=== PATIENT | female | born 1945 | race Caucasian/White ===

== ENCOUNTER → 2016-12-03 | Outpatient (CLI) | payer OTHER ==
[~2016-12-03] MED LIST: ASPCH81X PO; LEVO75TA36 PO; METH-307 PO; OXYC1TAB3 PO
[2016-12-03 10:26] LABS: ESTIMATED AVERAGE GLUCOSE 94 mg/dl; HA1C FLAG Normal (Normal)
[2016-12-03 10:33] LABS: CHOLESTEROL/HDL RATIO 3.6; THYROID STIMULATING HORMONE 0.449 uIu/ml (0.300-4.500)
== END | disposition home or self-care (01) ==
LOC: C.LAB1850 09:13
PROVIDERS: ATTEND Family Medicine
DX: E03.9 Hypothyroidism, unspecified (principal); E78.00 Pure hypercholesterolemia, unspecified; R73.9 Hyperglycemia, unspecified

== ENCOUNTER → 2017-09-26 | Day surgery (SDC) | payer OTHER ==
[2017-09-13 07:34] VITALS: Ht 154.9 cm; Wt 56.8 kg
[~2017-09-26] VITALS: Ht 154.9 cm; Wt 56.8 kg
[~2017-09-26] MED LIST changes: +500ML BSS 0.3ML EPI 1:1000PF IRRIG ONE; +ACETAMINOPHEN 325 MG TAB PO PRN; +AMVISC PLUS 0.8ML SYRINGE INT OCU ONE; +ATROPINE SULFATE 0.1 MG/ML 5ML SYR IV PRN; +BRIMONIDINE TART 0.2% OP SOLN PER DROP CHARGE ONE; +BRIMONIDINE TARTRATE 0.2% 5ML ONE; +BSS FLUSH ONE; +CALC600T9 PO; +ENDOCOAT 0.85ML SYRINGE INT OCU ONE; +EpHEDrine SULFATE INJ 50 MG/ML AMP IV PRN; +EpINEphrine INJ 1MG/ML AMP 1 MG/ML AMP ONE; +LACTATED RINGER'S 1000ML 500 ML IV SCH; -LEVO75TA36 PO; +LEVO75TA5 PO; +LIDOCAINE 4% OP SOLN DROP CHARGE ONE; +LIDOCAINE 4% OP SOLN DROP CHARGE OPR SCH; +LIDOCAINE HCL 1% MPF 2 ML VIAL ONE; -METH-307 PO; +MIDAZOLAM HCL 1 MG/ML 2ML VIAL ONE; +MIX: 3ML BSS AND 1ML EPI(PF) TOP ONE; +MOXIFLOXACIN OPH SOLN PER DROP CHARGE ONE; +ONDANSETRON INJ 2 MG/ML 2 ML VIAL IV PRN; -OXYC1TAB3 PO; +POVIDONE-IODINE OP SOLN 30 ML BTL ONE; +PROPARACAINE 0.5% OP SOLN PER DROP CHARGE OPR SCH; +TOBRAMYCIN/DEXAMETHASONE OPH OINT PER APPLN CHARGE ONE
[2017-09-26] MEDS: PHENYLEPHRINE HCL 2.5% OP SOLN PER DROP CHARGE OPR SCH ×2 (07:37→07:42)
[2017-09-26] MEDS: TROPICAMIDE 1% OP SOLN PER DROP CHARGE OPR SCH ×2 (07:38→07:42)
[2017-09-26] MEDS: CYCLOPENTOLATE HCL 1% OP SOLN PER DROP CHARGE OPR SCH ×2 (07:39→07:43)
[2017-09-26] MEDS: KETOROLAC 0.5% OP SOLN PER DROP CHARGE OPR SCH ×2 (07:40→07:44)
[2017-09-26] MEDS: MOXIFLOXACIN OPH SOLN PER DROP CHARGE OPR SCH ×2 (07:41→07:48)
--- NOTE | 2017-09-26 08:17 | History & Physical Bridge - [place] ---
H&P Re-Evaluation Bridge Note: I have examined the patient, reviewed the History & Physical and in the interval since the performance of the History & Physical I have noted the following changes of clinical significance: No changes noted
--- NOTE | 2017-09-26 09:11 | Discharge Instructions-SurgCtr ---
Discharge Instructions Date of Service Sep 26, 2017. Visit Reason for Visit: Cataract Right Eye Discharge Discharge Diagnosis / Problem: cataract right eye Discharge Goals Goal(s): Improve function Activity Recommendations Activity Limitations: per Instructions/Follow-up section Anesthesia . Post Anesthesia Instructions: If you have had General Anesthesia or IV Sedation: * Do not drive today. * Resume driving when surgeon permits. * Do not make important decisions or sign legal documents today. * Call surgeon for: 1. Temperature elevations greater than 101 degrees F. 2. Uncontrollable pain. 3. Excessive bleeding. 4. Persistent nausea and vomiting. 5. Medication intolerance (nausea, vomiting or rash). * For nausea and vomiting use only clear liquids such as: tea, soda, bouillon until nausea subsides, then gradually increase diet as tolerated. * If you have any concerns or questions, call your surgeon's office. If physician is unavailable and it is an emergency, call 911 or go to the nearest emergency room. . Instructions / Follow-Up Instructions / Follow-Up ACTIVITY RECOMMENDATIONS: * Light activities * You may walk outside, read, watch television. * Mild irritation and blurred vision are common for the first few days, redness around the white part of the eye is common. MEDICATIONS: Resume previous medications unless instructed otherwise by your surgeon. Eye drops (today and tomorrow): Cipro - one drop in operative eye every 2 hours while awake Prednisolone 1% - one drop in operative eye every 2 hours while awake Ketorolac - one drop in operative eye every 2 hours while awake latanoprost - one drop operative eye 1 times daily SPECIAL CARE INSTRUCTIONS: * If any problems or concerns, please call Dr. Mcdermott's office at . * Keep plastic shield taped over eye to sleep at night. * Keep plastic shield taped over eye except to administer eye drops. * Keep plastic shield on until office visit the following day. FOLLOW UP VISIT: Follow-up with Dr. Mcdermott in the [place] office as scheduled. If not already scheduled, please call the office at . Diet Recommendations Home Diet: resume previous diet Procedures Procedures Performed: Right Cataract Phacoemulsification With Intraocular Lens Implant Pending Studies Studies pending at discharge: no Medical Emergencies . Who to Call and When: Medical Emergencies: If at any time you feel your situation is an emergency, please call 911 immediately. . Non-Emergent Contact Non-Emergency issues call your: Vending Machine Refiller . . "Provider Documentation" section prepared by Chele Mcdermott. .
[2017-09-26 09:14] VITALS: TEMP 36.4
--- NOTE | 2017-09-26 09:14 | [facility] Operative Report ---
Operative Report Operative Date Sep 26, 2017. Pre-Operative Diagnosis Right Eye Cataract Post-Operative Diagnosis Same Procedure(s) Performed Right Cataract Phacoemulsification With Intraocular Lens Implant Surgeon Dr. Deniz Mcdermott Greenhouse Laborer Surgeon(s) None Estimated Blood Loss 0 Findings cataract right eye Fluids (cc crystalloids) see anesthesia record Specimens None Drains none Anesthesia local with sedation Complication(s) None Disposition Recovery Room / PACU Implants mx60 20.5 Indications decreased vision right eye Description of Procedure After informed consent was obtained in the holding area the patient was wheeled back to the operating room where cardiac monitoring leads and oxygen by nasal cannula was administered by Anesthesia. Gentle IV sedation was given, and the patient's right eye was prepped and draped in usual sterile fashion. A wire lid speculum was placed into the right eye and the operating microscope was swung into position. Using 0.12 forceps and a Supersharp blade a paracentesis port was made 2 o'clock hours away from the 9 o'clock position of the patient's right eye. 1% non-preserved Lidocaine was then injected into the anterior chamber for anesthesia. 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 A 2.0 mm keratotome blade was then used to make a shelved clear corneal incision at the 9 o'clock position of the right eye. Amvisc was injected into the anterior chamber and a cystotome and Utrata forceps were used to perform a curvilinear capsulorrhexis. BSS on a hydrodissection cannula was used to hydrodissect the lens nucleus away from the capsular bag. The phacoemulsification handpiece was then used in a stop and chop fashion to remove the lens nucleus. The irrigation and aspiration handpiece was then used to remove the residual cortical material. Amvisc was injected into the capsular bag and anterior chamber and a Bausch & Lomb MX60 20.5 Diopter intraocular lens was injected into the capsular bag. Irrigation and aspiration handpiece was used to remove the residual viscoelastic material. The wounds were hydrated and noted to be watertight. The wire lid speculum was removed from the eye. Vigamox, Brimonidine, and TobraDex ointment were placed on the eye and it was shielded. It should be noted that EndoCoat was used extensively during the case to protect the cornea endothelium. DISPOSITION: The patient tolerated the procedure well and was wheeled to the post anesthesia care unit in stable condition. I attest to the content of the Intraoperative Record and any orders documented therein. Any exceptions are noted below. I attest to the content of the Intraoperative Record and any orders documented therein. Any exceptions are noted below.
[2017-09-26 09:38] VITALS: BP 100/65; PULSE 63; O2SAT 98
--- NOTE | 2017-09-26 09:44 | Anesthesia Progress Nt - [facility] ---
Anesthesia Post Op Note Date & Time Sep 26, 2017 at 09:43 Vital Signs Pain Intensity: 0 Vital Signs Past 12 Hours Date Time Temp Pulse Resp B/P (MAP) Pulse Ox O2 Delivery O2 Flow Rate FiO2 09/26/17 09:38 63 16 100/65 (77) 98 Room Air 09/26/17 09:14 36.4 58 16 99/64 (76) 96 Room Air 09/26/17 08:09 85/57 (66) 09/26/17 07:25 36.6 78 18 92/65 (74) 96 Room Air Notes Mental Status: alert / awake / arousable, participated in evaluation Pt Amnestic to Procedure: Yes Nausea / Vomiting: adequately controlled Pain: adequately controlled Airway Patency, RR, SpO2: stable & adequate BP & HR: stable & adequate Hydration State: stable & adequate Anesthetic Complications: no major complications apparent
== END | disposition home or self-care (01) ==
LOC: X.SURG 06:57
PROVIDERS: ATTEND Ophthalmology
DX: H25.11 Age-related nuclear cataract, right eye (principal); E03.9 Hypothyroidism, unspecified; F17.210 Nicotine dependence, cigarettes, uncomplicated; Z79.82 Long term (current) use of aspirin; Z79.899 Other long term (current) drug therapy

== ENCOUNTER → 2017-10-12 | Day surgery (SDC) | payer OTHER ==
[2017-10-06 10:24] VITALS: Ht 154.9 cm; Wt 56.8 kg
[~2017-10-12] VITALS: Ht 154.9 cm; Wt 56.8 kg
[~2017-10-12] MED LIST changes: +ALEN70TA2 PO; -BRIMONIDINE TARTRATE 0.2% 5ML ONE; +ESCI10TA17 PO; +FENTANYL CITRATE INJ 50 MCG/1 ML 2 ML VIAL IV PRN; +FENTANYL CITRATE INJ 50 MCG/1 ML 2 ML VIAL ONE; +FLUMAZENIL 0.1 MG/1 ML 10 ML VIAL IV PRN; +HYDROmorphone INJ 2 MG/ML SYR/VIAL IV PRN; +LABETALOL HCL IV 5 MG/ML 20ML IV PRN; +LIDOCAINE 4% OP SOLN DROP CHARGE OPL SCH; -LIDOCAINE 4% OP SOLN DROP CHARGE OPR SCH; +MEPERIDINE HCL 25 MG/ML CARP IV PRN; +NALOXONE HCL 0.4 MG/1 ML VIAL/CARP IV PRN; +OMEP-334 PO; +PHENYLEPHRINE 100MCG/ML 5ML SYR IV PRN; +PROPARACAINE 0.5% OP SOLN PER DROP CHARGE OPL SCH; -PROPARACAINE 0.5% OP SOLN PER DROP CHARGE OPR SCH
[2017-10-12] MEDS: PHENYLEPHRINE HCL 2.5% OP SOLN PER DROP CHARGE OPL SCH ×2 (08:12→08:18)
[2017-10-12] MEDS: TROPICAMIDE 1% OP SOLN PER DROP CHARGE OPL SCH ×2 (08:13→08:19)
[2017-10-12] MEDS: CYCLOPENTOLATE HCL 1% OP SOLN PER DROP CHARGE OPL SCH ×2 (08:15→08:20)
[2017-10-12] MEDS: KETOROLAC 0.5% OP SOLN PER DROP CHARGE OPL SCH ×2 (08:16→08:22)
[2017-10-12] MEDS: MOXIFLOXACIN OPH SOLN PER DROP CHARGE OPL SCH ×2 (08:17→08:31)
[2017-10-12 09:45] VITALS: TEMP 36.4
--- NOTE | 2017-10-12 09:46 | Discharge Instructions-SurgCtr ---
Discharge Instructions Date of Service Oct 12, 2017. Visit Reason for Visit: Cataract Left Eye Discharge Discharge Diagnosis / Problem: cataract left eye Discharge Goals Goal(s): Improve function Activity Recommendations Activity Limitations: per Instructions/Follow-up section Lifting Limitations: no more than 5 pounds Anesthesia . Post Anesthesia Instructions: If you have had General Anesthesia or IV Sedation: * Do not drive today. * Resume driving when surgeon permits. * Do not make important decisions or sign legal documents today. * Call surgeon for: 1. Temperature elevations greater than 101 degrees F. 2. Uncontrollable pain. 3. Excessive bleeding. 4. Persistent nausea and vomiting. 5. Medication intolerance (nausea, vomiting or rash). * For nausea and vomiting use only clear liquids such as: tea, soda, bouillon until nausea subsides, then gradually increase diet as tolerated. * If you have any concerns or questions, call your surgeon's office. If physician is unavailable and it is an emergency, call 911 or go to the nearest emergency room. . Instructions / Follow-Up Instructions / Follow-Up ACTIVITY RECOMMENDATIONS: * Light activities * You may walk outside, read, watch television. * Mild irritation and blurred vision are common for the first few days, redness around the white part of the eye is common. MEDICATIONS: Resume previous medications unless instructed otherwise by your surgeon. Eye drops (today and tomorrow)Left Eye: Cipro - one drop in operative eye every 2 hours while awake Prednisolone 1% - one drop in operative eye every 2 hours while awake Ketorolac - one drop in operative eye every 2 hours while awake Right Eye: Prednisolone 1%- one drop twice a day Ketorolac- one drop four times a day SPECIAL CARE INSTRUCTIONS: * If any problems or concerns, please call Dr. Mcdermott's office at . * Keep plastic shield taped over eye to sleep at night. * Keep plastic shield taped over eye except to administer eye drops. * Keep plastic shield on until office visit the following day. FOLLOW UP VISIT: Follow-up with Dr. Mcdermott in the [place] office as scheduled. If not already scheduled, please call the office at . Diet Recommendations Home Diet: resume previous diet Procedures Procedures Performed: Left Cataract Phacoemulsification With Intraocular Lens Implant Pending Studies Studies pending at discharge: no Medical Emergencies . Who to Call and When: Medical Emergencies: If at any time you feel your situation is an emergency, please call 911 immediately. . Non-Emergent Contact Non-Emergency issues call your: Merchandise For Resale Purchasing Agent . . "Provider Documentation" section prepared by Chele Mcdermott. .
--- NOTE | 2017-10-12 09:48 | [facility] Operative Report ---
Operative Report Operative Date Oct 12, 2017. Pre-Operative Diagnosis Cataract Left Eye Post-Operative Diagnosis Same Procedure(s) Performed Left Cataract Phacoemulsification With Intraocular Lens Implant Surgeon Dr. Mcdermott Underground Drill Operator Surgeon(s) None Estimated Blood Loss 0 Findings cataract left eye Fluids (cc crystalloids) see anesthesia record Specimens None Drains none Anesthesia local with sedation Complication(s) None Disposition Recovery Room / PACU Implants mx60 21.0 Indications decreased vision left eye Description of Procedure After informed consent was obtained in the holding area the patient was wheeled back to the operating room where cardiac monitoring leads and oxygen by nasal cannula was administered by Anesthesia. Gentle IV sedation was given, and the patient's left eye was prepped and draped in usual sterile fashion. A wire lid speculum was placed into the left eye and the operating microscope was swung into position. Using 0.12 forceps and a Supersharp blade a paracentesis port was made 2 o'clock hours away from the 3 o'clock position of the patient's left eye. 1% non-preserved Lidocaine was then injected into the anterior chamber for anesthesia. Flomax mix was injected into the eye. A 2.0 mm keratotome blade was then used to make a shelved clear corneal incision at the 3 o'clock position of the left eye. Amvisc was injected into the anterior chamber and a cystotome and Utrata forceps were used to perform a curvilinear capsulorrhexis. BSS on a hydrodissection cannula was used to hydrodissect the lens nucleus away from the capsular bag. The phacoemulsification handpiece was then used in a stop and chop fashion to remove the lens nucleus. The irrigation and aspiration handpiece was then used to remove the residual cortical material. Amvisc was injected into the capsular bag and anterior chamber and a Bausch & Lomb MX60 21.0 Diopter intraocular lens was injected into the capsular bag. Irrigation and aspiration handpiece was used to remove the residual viscoelastic material. The wounds were hydrated and noted to be watertight. The wire lid speculum was removed from the eye. Vigamox, Brimonidine, and TobraDex ointment were placed on the eye and it was shielded. It should be noted that EndoCoat was used extensively during the case to protect the cornea endothelium. DISPOSITION: The patient tolerated the procedure well and was wheeled to the post anesthesia care unit in stable condition. I attest to the content of the Intraoperative Record and any orders documented therein. Any exceptions are noted below. I attest to the content of the Intraoperative Record and any orders documented therein. Any exceptions are noted below.
--- NOTE | 2017-10-12 09:58 | Anesthesia Progress Nt - [facility] ---
Anesthesia Post Op Note Date & Time Oct 12, 2017 at 09:58 Vital Signs Pain Intensity: 0 Vital Signs Past 12 Hours Date Time Temp Pulse Resp B/P (MAP) Pulse Ox O2 Delivery O2 Flow Rate FiO2 10/12/17 09:45 36.4 57 16 99/63 (75) 97 Room Air 10/12/17 08:04 36.6 61 16 96/64 (75) 97 Room Air Notes Mental Status: alert / awake / arousable, participated in evaluation Pt Amnestic to Procedure: Yes Nausea / Vomiting: adequately controlled Pain: adequately controlled Airway Patency, RR, SpO2: stable & adequate BP & HR: stable & adequate Hydration State: stable & adequate Anesthetic Complications: no major complications apparent
[2017-10-12 10:14] VITALS: BP 91/58; PULSE 51; O2SAT 97
== END | disposition home or self-care (01) ==
LOC: X.SURG 07:47
PROVIDERS: ATTEND Ophthalmology
DX: H26.9 Unspecified cataract (principal); F17.200 Nicotine dependence, unspecified, uncomplicated; Z98.890 Other specified postprocedural states; Z98.41 Cataract extraction status, right eye

== ENCOUNTER → 2017-12-26 | Outpatient (CLI) | payer OTHER ==
[~2017-12-26] MED LIST changes: -500ML BSS 0.3ML EPI 1:1000PF IRRIG ONE; -ACETAMINOPHEN 325 MG TAB PO PRN; -ALEN70TA2 PO; -AMVISC PLUS 0.8ML SYRINGE INT OCU ONE; -ATROPINE SULFATE 0.1 MG/ML 5ML SYR IV PRN; -BRIMONIDINE TART 0.2% OP SOLN PER DROP CHARGE ONE; -BSS FLUSH ONE; -ENDOCOAT 0.85ML SYRINGE INT OCU ONE; -ESCI10TA17 PO; -EpHEDrine SULFATE INJ 50 MG/ML AMP IV PRN; -EpINEphrine INJ 1MG/ML AMP 1 MG/ML AMP ONE; -FENTANYL CITRATE INJ 50 MCG/1 ML 2 ML VIAL IV PRN; -FENTANYL CITRATE INJ 50 MCG/1 ML 2 ML VIAL ONE; -FLUMAZENIL 0.1 MG/1 ML 10 ML VIAL IV PRN; -HYDROmorphone INJ 2 MG/ML SYR/VIAL IV PRN; -LABETALOL HCL IV 5 MG/ML 20ML IV PRN; -LACTATED RINGER'S 1000ML 500 ML IV SCH; -LIDOCAINE 4% OP SOLN DROP CHARGE ONE; -LIDOCAINE 4% OP SOLN DROP CHARGE OPL SCH; -LIDOCAINE HCL 1% MPF 2 ML VIAL ONE; -MEPERIDINE HCL 25 MG/ML CARP IV PRN; -MIDAZOLAM HCL 1 MG/ML 2ML VIAL ONE; -MIX: 3ML BSS AND 1ML EPI(PF) TOP ONE; -MOXIFLOXACIN OPH SOLN PER DROP CHARGE ONE; -NALOXONE HCL 0.4 MG/1 ML VIAL/CARP IV PRN; -OMEP-334 PO; -ONDANSETRON INJ 2 MG/ML 2 ML VIAL IV PRN; -PHENYLEPHRINE 100MCG/ML 5ML SYR IV PRN; -POVIDONE-IODINE OP SOLN 30 ML BTL ONE; -PROPARACAINE 0.5% OP SOLN PER DROP CHARGE OPL SCH; -TOBRAMYCIN/DEXAMETHASONE OPH OINT PER APPLN CHARGE ONE
== END | disposition home or self-care (01) ==
LOC: C.MAMM 11:20
PROVIDERS: ATTEND Family Medicine
DX: M81.0 Age-related osteoporosis without current pathological fracture (principal)

== ENCOUNTER 2018-06-08 12:29 | Emergency (ER) | payer OTHER ==
[~2018-06-08] VITALS: Ht 152.4 cm; Wt 45.3 kg
[2018-06-08 12:47] VITALS: TEMP 36.9; Ht 152.4 cm; Wt 45.3 kg
[2018-06-08 13:02] VITALS: O2SAT 97
[2018-06-08] MEDS ORDERED: SODIUM CHLORIDE 0.9% 1000ML 1,000 ML IV STA (13:20)
--- NOTE | 2018-06-08 13:33 | EMERGENCY ROOM VISIT NOTE ---
History First contact with patient: 13:00 Chief Complaint: OTHER COMPLAINT Stated Complaint: BLEEDING SOMEWHERE, DEHYDRATED, SENT FROM History of Present Illness The patient is a 73 year old female who presents to the Emergency Room sent in from her doctor's office due to positive orthostatics. Patient states since January she has had daily morning mid abdominal pain that she describes as a cramping. Patient states it seems to go away later on in the day. Patient states she has had a decreased appetite due to this. Patient denies any recent change in her stools, admits to mild constipation, denies black or bloody stools. Patient denies any change in her urine. Patient states when she stands up she will get dizzy, and will often feel dizzy with continued walking. Patient denies any trouble breathing or increased work of breathing with exertion. Patient denies headaches, vision changes. Patient denies nausea or vomiting. Patient states she has had one colonoscopy many years ago, has not had any since. Patient denies any history of GERD or gastritis, no prior EGD, does not take any OTC stomach meds. Patient denies any recent illness, fevers or chills. Patient denies any current complaints while lying in bed. Friend at bedside notes that patient's in January. Review of Systems See HPI for pertinent positives & negatives. A total of 10 systems reviewed and were otherwise negative. Past Medical/Surgical History Medical Problems: (1) Compression fracture of L1 lumbar vertebra Family History Cancer Diabetes mellitus Social History Smoking Status: Current Every Day Smoker Marital Status: Housing Status: lives with significant other Occupation Status: unemployed Current/Historical Medications Scheduled Alendronate Sodium (Fosamax), 70 MG PO WK Calcium Carbonate-Vitamin D (Calcium + D), 1 TAB PO HS Escitalopram (Lexapro), 10 MG PO DAILY Levothyroxine Sodium (Levothyroxine Sodium), 1 TAB PO QAM Omeprazole (Omeprazole Dr), 40 MG PO DAILY Physical Exam Vital Signs Date Time Temp Pulse Resp B/P (MAP) Pulse Ox O2 Delivery O2 Flow Rate FiO2 06/08/18 16:02 69 113/69 69 106/78 06/08/18 15:52 74 16 111/57 98 Room Air 06/08/18 15:51 72 18 103/55 79 109/60 80 86/55 06/08/18 14:24 58 20 118/68 99 Room Air 06/08/18 13:36 63 22 107/67 99 Room Air 06/08/18 13:17 57 06/08/18 13:02 97 Room Air 06/08/18 12:58 62 117/65 61 99/60 77 89/75 06/08/18 12:47 36.9 73 20 98/67 98 Room Air Physical Exam GENERAL: alert, well appearing, well nourished, no distress, non-toxic EYE EXAM: normal conjunctiva, PERRL and EOM's grossly intact OROPHARYNX: no exudate, no erythema, lips, buccal mucosa, and tongue normal and mucous membranes are moist NECK: supple, no nuchal rigidity, no adenopathy, non-tender LUNGS: Clear to auscultation. Normal chest wall mechanics, no w/r/r HEART: no murmurs, S1 normal and S2 normal ABDOMEN: abdomen soft, non-tender, normo-active bowel sounds, no masses, no rebound or guarding. No pulsatile mass, dull to percussion. BACK: Back is symmetrical on inspection and there is no deformity, no midline tenderness, no CVA tenderness. SKIN: no rashes and no bruising UPPER EXTREMITIES: upper extremities are grossly normal. Full range of motion, normal pulses. LOWER EXTREMITIES: No pitting edema. Full range of motion, normal pulses. NEURO EXAM: Normal sensorium, cranial nerves II-XII grossly intact, normal speech, no gross weakness of arms, no gross weakness of legs. Gross sensation intact. Medical Decision & Procedures Laboratory Results 06/08/18 13:10 Red Blood Count 4.38, Mean Corpuscular Volume 100.5, Mean Corpuscular Hemoglobin 33.6, Mean Corpuscular Hemoglobin Concent 33.4, Mean Platelet Volume 10.0, Neutrophils (%) (Auto) 73.7, Lymphocytes (%) (Auto) 17.7, Monocytes (%) ( Auto) 7.5, Eosinophils (%) (Auto) 0.6, Basophils (%) (Auto) 0.3, Neutrophils # ( Auto) 4.85, Lymphocytes # (Auto) 1.16, Monocytes # (Auto) 0.49, Eosinophils # ( Auto) 0.04, Basophils # (Auto) 0.02 06/08/18 13:10 Test 06/08/18 13:10 White Blood Count 6.57 K/uL (4.8-10.8) Red Blood Count 4.38 M/uL (4.2-5.4) Hemoglobin 14.7 g/dL (12.0-16.0) Hematocrit 44.0 % (37-47) Mean Corpuscular Volume 100.5 fL (80-100) Mean Corpuscular Hemoglobin 33.6 pg (25-34) Mean Corpuscular Hemoglobin Concent 33.4 g/dl (32-36) Platelet Count 226 K/uL (130-400) Mean Platelet Volume 10.0 fL (7.4-10.4) Neutrophils (%) (Auto) 73.7 % Lymphocytes (%) (Auto) 17.7 % Monocytes (%) (Auto) 7.5 % Eosinophils (%) (Auto) 0.6 % Basophils (%) (Auto) 0.3 % Neutrophils # (Auto) 4.85 K/uL (1.4-6.5) Lymphocytes # (Auto) 1.16 K/uL (1.2-3.4) Monocytes # (Auto) 0.49 K/uL (0.11-0.59) Eosinophils # (Auto) 0.04 K/uL (0-0.5) Basophils # (Auto) 0.02 K/uL (0-0.2) RDW Standard Deviation 51.4 fL (36.4-46.3) RDW Coefficient of Variation 13.9 % (11.5-14.5) Immature Granulocyte % (Auto) 0.2 % Immature Granulocyte # (Auto) 0.01 K/uL (0.00-0.02) Prothrombin Time 10.2 SECONDS (9.0-12.0) Prothromb Time International Ratio 1.0 (0.9-1.1) Anion Gap 7.0 mmol/L (3-11) Est Creatinine Clear Calc Drug Dose 38.5 ml/min Estimated GFR () 70.7 Estimated GFR (Non- 61.0 BUN/Creatinine Ratio 14.6 (10-20) Calcium Level 8.8 mg/dl (8.5-10.1) Magnesium Level 2.2 mg/dl (1.8-2.4) Total Bilirubin 0.5 mg/dl (0.2-1) Aspartate Amino Transf (AST/SGOT) 17 U/L (15-37) Alanine Aminotransferase (ALT/SGPT) 18 U/L (12-78) Alkaline Phosphatase 68 U/L (45-117) Troponin I < 0.015 ng/ml (0-0.045) Pro-B-Type Natriuretic Peptide 329 pg/ml (0-900) Total Protein 7.0 gm/dl (6.4-8.2) Albumin 4.0 gm/dl (3.4-5.0) Globulin 3.0 gm/dl (2.5-4.0) Albumin/Globulin Ratio 1.3 (0.9-2) Lipase 200 U/L (73-393) Thyroid Stimulating Hormone (TSH) 0.918 uIu/ml (0.300-4.500) Medications Administered Medications (Trade) Dose Ordered Sig/Conchis Route Start Time Stop Time Status Last Admin Dose Admin Sodium Chloride 1,000 ml @ 999 mls/hr Q1H1M STAT IV 06/08/18 13:20 06/08/18 14:20 DC 06/08/18 13:34 999 MLS/HR Al Hydroxide/Mg Hydroxide (Maalox Susp) 15 ml NOW STAT PO 06/08/18 15:22 06/08/18 15:23 DC 06/08/18 15:22 15 ML ECG Per My Interpretation Indication: abdominal pain Rate (beats per minute): 58 Rhythm: sinus bradycardia Findings: T-wave inversion (V2 and V3, no other acute ischemic changes) ED Course 1532: Discussed with patient all results. Discussed with her possible component of gastritis. Also discussed possible grief reaction given the loss of her in January. Discussed her diet and hydration throughout a normal day for her. Patient states some discussion of her symptoms with her family doctor today, her family doctor called in prescriptions for an acid reducing medication which I encouraged her to continue taking. Discussed follow-up with her family doctor. Will repeat orthostatic vital signs as a precaution. 1600: Nurse noted positive orthostatics but asymptomatic from sitting to standing on her bedside evaluation, however when I performed the same test at bedside patient was asymptomatic and had no significant drop in blood pressure or elevation of heart rate. Discussed with patient need for close follow-up with family doctor and a repeat of her orthostatic vital signs as a precaution. I encouraged her to continue drinking plenty of water throughout the day. Medical Decision Differential diagnosis: Etiologies such as appendicitis, diverticulitis, PUD, biliary pathology, UTI, pancreatitis, obstruction, mesenteric ischemia, aortic pathology, infections, inflammatory bowel disease, renal colic, as well as others were entertained. HEART score 3 Patient's labs and imaging here reassuring, patient was given IV fluids as a precaution and my repeat bedside orthostatic vital signs were negative. Patient was asymptomatic throughout. Discussed with patient concerning given symptoms and possible need for additional GI evaluation, she was in agreement. Discussed her daily diet and activity and advised avoidance of any acidic foods and consideration for an acid reducing medication. Her family doctor has written this is a prescription for her however she has not yet picked it up. I encouraged her to do so and begin this daily. Discussed with patient possible component of grief reaction and stress since the loss of her which she acknowledges and states could easily be contributing to her decreased appetite and fatigue. I do not suspect ACS, dissection, PE, tamponade, perforation, GI bleed, bowel obstruction, mesenteric ischemia. Patient asking to eat here, when offered crackers and something to drink, she declined stating she would like to go home and eat. Friend at bedside willing to take her home and is very supportive of her efforts to follow-up with family doctor. Feel patient is stable for discharge at this time and close outpatient follow-up. I did discuss with patient symptoms to watch and return for, she verbalized understanding was agreeable with plan. Medication Reconcilliation Current Medication List: was personally reviewed by me Blood Pressure Screening Patient's blood pressure: Low blood pressure Impression Primary Impression: Upper abdominal pain Additional Impression: Grief Departure Information Dispostion Home / Self-Care Condition GOOD Referrals Radha Ruvalcaba MD (PCP) Patient Instructions My [facility] Additional Instructions Please continue your regular medications and start the new stomach medications were prescribed by her family doctor. Please try to make sure you are drinking plenty of water throughout the day to stay well-hydrated. Please avoid foods that can add to your stomach irritation due to their level acidity, this includes coffee, alcohol, soda, tomato based products, and citrus fruits. If you develop worsening or more persistent abdominal pain, noticed black or bloody stools, develop fevers or chills, nausea or vomiting, worsening dizziness or blackout, chest pain or trouble breathing, or you have any other new or concerning symptoms, please return to the ER medially. Problem Qualifiers
[2018-06-08] MEDS ORDERED: ALEN70TA2 PO (13:43)
[2018-06-08] MEDS ORDERED: OMEP-334 PO (13:43)
[2018-06-08] MEDS ORDERED: ESCI10TA17 PO (13:43)
[2018-06-08 13:54] LABS: BASO % 0.3 %; BASO ABS # 0.02 K/uL (0-0.2); EOS % 0.6 %; EOS ABS # 0.04 K/uL (0-0.5); HEMOGLOBIN 14.7 g/dL (12.0-16.0); IG# 0.01 K/uL (0.00-0.02); LYMPH % 17.7 %; LYMPH ABS # 1.16 K/uL (1.2-3.4); MEAN CELL VOLUME 100.5 fL (80-100); MEAN CORPUSCULAR HEMOGLOBIN 33.6 pg (25-34); MEAN CORPUSCULAR HGB CONC 33.4 g/dl (32-36); MONO % 7.5 %; MONO ABS # 0.49 K/uL (0.11-0.59); NEUT % 73.7 %; NEUT ABS # 4.85 K/uL (1.4-6.5); PLATELET COUNT 226 K/uL (130-400); RED CELL DISTRIBUTION WIDTH CV 13.9 % (11.5-14.5); RED CELL DISTRIBUTION WIDTH SD 51.4 fL (36.4-46.3); WHITE BLOOD COUNT 6.57 K/uL (4.8-10.8)
[2018-06-08 14:14] LABS: ALKALINE PHOSPHATASE 68 U/L (45-117); ALT/SGPT 18 U/L (12-78); AST/SGOT 17 U/L (15-37); BLOOD UREA NITROGEN 14 mg/dl (7-18); CALCIUM 8.8 mg/dl (8.5-10.1); CARBON DIOXIDE 28 mmol/L (21-32); CREATININE 0.93 mg/dl (0.60-1.20); GLUCOSE 105 mg/dl (70-99); LIPASE 200 U/L (73-393); POTASSIUM 3.6 mmol/L (3.5-5.1); SODIUM 141 mmol/L (136-145)
[2018-06-08] MEDS ORDERED: OPTIRAY 320 IV PRN (14:15)
--- NOTE | 2018-06-08 15:18 | DIAGNOSTIC IMAGING REPORT ---
CT SCAN OF THE ABDOMEN AND PELVIS WITH IV CONTRAST CLINICAL HISTORY: Upper abdominal pain. COMPARISON STUDY: Abdominal CT dated 06/26/2016. TECHNIQUE: Following the IV administration of 93 cc of Optiray 320, CT scan of the abdomen and pelvis is performed from the lung bases to the proximal femora. Images are reviewed in the axial, sagittal, and coronal planes. IV contrast was administered without complication. A dose lowering technique was utilized adhering to the principles of ALARA. The examination is degraded by motion artifact. CT DOSE: 205.90 mGycm FINDINGS: Lung bases: The heart is top normal in size and without pericardial effusion. Emphysematous change is seen at the lung bases. There is a fat-containing Bochdalek hernia at the left lung base. No airspace consolidation or pleural effusion is identified. Liver: The contrast-enhanced liver is normal in size, contour, and attenuation. There is no intrahepatic biliary ductal dilatation. The hepatic veins and portal veins are patent. A 1.6 cm cyst is noted in the left hepatic lobe. Gallbladder: Adenomyomatosis is noted in the fundal region, and unchanged from previous. Spleen: Normal in size and attenuation. Pancreas: Unremarkable. Adrenal glands: Unremarkable. Kidneys: The contrast enhanced kidneys demonstrate mild cortical atrophy and are without hydronephrosis. The kidneys enhance symmetrically. A subcentimeter cortical hypodensity in the left kidney likely represents a cyst but is too small for definitive characterization. Abdominal vasculature: The abdominal aorta is normal in course and caliber noting mild to moderate atherosclerotic calcification. Bowel: The small bowel and colon are normal in course and caliber. The appendix is well-visualized and normal. Peritoneum: There is no intraperitoneal free air or abdominal ascites. Lymphadenopathy: None. Pelvic viscera: The bladder, uterus, and adnexa are normal as visualized. Skeletal structures: The skeletal structures are heterogeneously osteopenic. There are moderate chronic compression deformities seen from L1 through L5, with evidence of previous vertebroplasty at L1. No lytic or blastic lesions are seen. IMPRESSION: 1. There are no acute infectious or inflammatory findings in the abdomen or pelvis noting a motion degraded examination. 2. Emphysema. 3. Additional findings as above. Electronically signed by: Sharath Scott M.D. 06/08/2018 3:17 PM Dictated Date/Time: 06/08/2018 3:10 PM
[2018-06-08] MEDS ORDERED: ALUMINUM/MAGNESIUM SUSP 30 ML UDC PO STA (15:22)
[2018-06-08 15:52] VITALS: O2SAT 98
[2018-06-08 16:02] VITALS: BP 106/78; PULSE 69
== END 2018-06-08 16:24 | disposition home or self-care (01) ==
LOC: C.EDB 12:30
DX: R10.10 Upper abdominal pain, unspecified (principal); F43.21 Adjustment disorder with depressed mood; F17.200 Nicotine dependence, unspecified, uncomplicated

== ENCOUNTER 2024-05-11 16:45 | Inpatient (IN) ==
--- NOTE | 2024-05-11 17:18 | Emergency Department Note ---
Impression & Plan Fall, Clavicle fracture, Malignant neoplasm of lung, Weakness, Fracture of lumbar spine ED Provider Note Provider: Raoul Teague MD DATE OF SERVICE: 05/11/2024 CHIEF COMPLAINT: Fall, some disorientation HISTORY OF PRESENT ILLNESS: Patient is a 79-year-old female history of hypothyroidism, heartburn, and appears to be lung cancer undergoing evaluation by medical oncology this coming week presenting here today with daughter concern for injury from fall and some confusion. Patient evidently on Tuesday 2 days ago was dragging a large box with her meals on wheels and. Patient does not clearly remember following. Daughter noted yesterday on significant bruising to the patient's right upper chest and shoulder. Patient states she might of fallen at night but is unclear. Patient reports she has had some back pain and some pain in the right shoulder and upper chest. No significant headache reported. Daughter reports patient has had at times have a little bit forgetful or confused. Patient has had some chronic lightheadedness issues for some time and normally has a bit of a lower blood pressure. Did take some aspirin last night for the pain but not normally on blood thinners or anticoagulants. Denies significant injury to the lower extremities. Denies new numbness or tingling. PAST MEDICAL HISTORY: As noted above MEDICATIONS: Reviewed home medications SOCIAL HISTORY: Smoker, lives by herself PHYSICAL EXAM: GENERAL: alert and oriented in no acute distress on stretcher frail in appearance Head: normocephalic and atraumatic EYES: No injection, discharge or icterus. EOMI. NECK: Trachea midline. Supple. ENT: Mucous membranes pink and moist. LUNGS: Airway patent. No retractions. Breath sounds clear with good air entry bilaterally. HEART: Regular rate and rhythm. Some slight right upper chest wall tenderness with surrounding ecchymosis to the right upper chest and shoulder ABDOMEN: Soft and non-tender, without guarding or rebound. SKIN: Acyanotic, warm, dry, without rashes EXTREMITIES: Without swelling, tenderness or deformity good range of motion of the right upper shoulder and arm but significant ecchymosis and contusion here. NEUROLOGICAL: No focal deficits. No aphasia. No facial droop or slurred speech. Normal strength and tone in the extremities. Sensation to gross touch normal. EK bpm normal sinus rhythm with sinus arrhythmia. No PVC. No acute ST segment elevation or depression with a QTc of 441 and anterior T wave inversions notable. CONTINUOUS CARDIAC MONITORING: was ordered and showed a heart rate of 70s to 80s bpm in normal sinus rhythm GCS 15. Patient's laboratory studies and imaging reviewed. Differential includes Fracture, dislocation, contusion, intra-abdominal, pneumothorax, intrathoracic, intracranial, neurologic, compartment syndrome, rhabdomyolysis, as well as other pathologies. IMPRESSION/MEDICAL DECISION MAKING: Patient with significant difficulty with any ambulation required two-person assist to assist from wheelchair to bed. Has significant ecchymosis to the right upper shoulder and chest region. No crepitus. Not hypoxic. Long-term smoker recently diagnosed with lung cancer. Quite thin and cachectic. Will obtain x-ray of the shoulder as well as CT imaging of the head, cervical spine, chest abdomen pelvis. Mid lower back pain but no significant or logical deficit here. Maybe little bit of confusion at time and again not a good historian regarding the injury. Has been living by herself but unsure if this is rose at this time given her mobility issues and multiple falls. No evidence of compartment syndrome. No evidence of vascular compromise in the extremities. No large wounds appreciable. No real focal deficits and low suspicion for CVA. Again head CT ordered to exclude any intracranial bleeding. Will look for any metabolic or infectious abnormalities. Not febrile and does not appear septic upon arrival. Gentle IV hydration ordered. Blood work here without significant anemia or leukocytosis. No severe electrolyte abnormality signs of renal dysfunction. CK minimally elevated to 86 but doubt this truly represents rhabdo at this time. Did receive some gentle hydration. Troponin normal and EKG reassuring. TSH not abnormal. CT head and cervical spine without acute traumatic injury noted. CT of chest with some contusion to the upper chest without reported fracture or pneumothorax by radiology. Shoulder x-ray and imaging questions a distal right clavicle fracture. CT abdomen pelvis completed as well only noting concern for possible bilateral L5 pedicle fracture. Patient neurologically intact. Do not believe this requires any emergent surgeries. Given some Tylenol for pain. Bedpan utilized to obtain urine sample and send for UA. Patient not in a condition to go home especially in a sling given her fall risk and the fact she lives alone. Discussed with her staying for further care and assistance. Hospitalist team was consulted. DIAGNOSIS: Falls, weakness, clavicle fracture, lung cancer, lumbar fracture DISPOSITION: Hospitalist will evaluate Patient was agreeable with this plan. Past Med/Surg History Problem List (Updated 05/11/24 @ 18:43 by Raoul Teague M.D.) Fracture of lumbar spine (Acute) Weakness (Acute) Clavicle fracture (Acute) Fall (Acute) Advanced care planning/counseling discussion Palliative care by specialist Dyspnea and respiratory abnormalities Malignant cachexia Weakness generalized S/P bronchoscopy with biopsy 04/15/23 Malignant neoplasm of lung (Chronic) Biopsy on 04/15/23 Recurrent falls Obstructive pattern present on pulmonary function testing Epidermoid cyst of face GERD (gastroesophageal reflux disease) Chronic rhinitis (Chronic) Constipation (Chronic) Smokes 1.5 packs of cigarettes per day (Chronic) Osteoporosis (Chronic) Hypothyroidism (Chronic) Hypercholesterolemia (Chronic) Depression with anxiety (Chronic) Hyperglycemia (Chronic) Vitamin D deficiency (Chronic) Medical History Chronic rhinitis Constipation Glaucoma Hypercholesterolemia Hypothyroidism Malignant neoplasm of lung Osteoporosis Smokes 1.5 packs of cigarettes per day Surgical History History of cataract surgery S/P bronchoscopy with biopsy History of laryngoscopy History of tubal ligation History of tonsillectomy History of colposcopy Previous back surgery S/P wisdom tooth extraction Family History Mother Stroke Diabetes Father Lung disease caused by breathing particles Brother Cancer Sister Cancer Son Accident Daughter No problems noted. Daughter Cervical cancer Diverticulitis Other Hypertension Thrombophlebitis Denies family history of Ovarian cancer Prostate cancer Breast cancer Social History Smoking Status: Former smoker Tobacco Type: Cigarettes Age Started Using Tobacco: 12; packs per day: 0.5; Cigarettes Per Day: 30; Second Hand Exposure: No; Do You Dip or Chew Tobacco: No; Hx Alcohol Use: No Hx Substance Use: No Preferred Language: Maltese Communication Ability: Effective Visual Impairment: No Limitations Hearing Ability: Normal Watch Parts Inspector Required: No Beliefs That Will Affect Care: None marital status: / Current Living Situation: Alone current occupational status: retired current occupation: Retail How many Children do You have: 2 Feels Safe at Home: Yes Childhood Exposure to Second-Hand Smoke: No Diet: regular caffeine: Yes during the past year weight has: remained stable Dental Care, Regularly: No Physical Activity Frequency: Does not Exercise Seatbelt Use: always Sunscreen Use: Yes Assistive Devices: Denture - Upper, Denture - Lower and Glasses Allergies Allergies Allergy/AdvReac Type Severity Reaction Status Date / Time No Known Allergies Allergy Unverified 05/11/24 18:53 Home Meds Home Medications Medication Instructions Recorded Confirmed latanoprost 0.005 % eye drops 1 drops ophthalmic (eye) QPM 06/21/19 05/11/24 dorzolamide 22.3 mg-timolol 6.8 1 drp OPR BID 10/06/21 05/11/24 mg/mL eye drops levothyroxine 88 mcg tablet 88 mcg PO DAILY 05/11/24 05/11/24 pantoprazole 40 mg tablet,delayed 40 mg PO DAILY 05/11/24 05/11/24 release sertraline 100 mg tablet 100 mg PO DAILY 05/11/24 05/11/24 Results & Data (ED) Vital Signs Vital Signs - 24 hr 05/11/24 16:53 05/11/24 17:21 05/11/24 18:00 Temperature 35.9 C L Temperature Source Temporal Artery Scan Pulse Rate 83 76 Pulse Rate [Apical] Pulse Rhythm Regular Pulse Rhythm [Apical] Pulse Strength Normal Pulse Strength [Apical] Respiratory Rate 16 Respiratory Effort / Characteristics Non-Labored Respiratory Depth Normal Respiratory Pattern Regular Blood Pressure [Left Arm] Blood Pressure Mean [Left Arm] Pulse Oximetry 93 Oxygen Delivery Method Room Air Room Air Sepsis Recent Fever Within 48 Hours No Sepsis New/Unexplained Change in Mental Status No Sepsis Action Taken by Nursing No Action Required 05/11/24 19:17 Temperature Temperature Source Pulse Rate Pulse Rate [Apical] 74 Pulse Rhythm Pulse Rhythm [Apical] Regular Pulse Strength Pulse Strength [Apical] Normal Respiratory Rate 19 Respiratory Effort / Characteristics Non-Labored Spontaneous Respiratory Depth Normal Respiratory Pattern Regular Blood Pressure [Left Arm] 116/69 Blood Pressure Mean [Left Arm] 84 Pulse Oximetry 95 Oxygen Delivery Method Room Air Sepsis Recent Fever Within 48 Hours Sepsis New/Unexplained Change in Mental Status Sepsis Action Taken by Nursing Laboratory Data 05/11/24 17:15 05/11/24 17:15 Lab Results 05/11/24 05/11/24 05/11/24 Range/Units 17:14 17:15 17:32 WBC 9.49 (4.8-10.8) K/ul RBC 3.68 L (4.20-5.40) M/uL Hgb 12.0 (12.0-16.0) g/dl POC Hgb 12.2 (12.0-16.0) g/dl Hct 35.6 L (37.0-47.0) % POC Hct 36 L (37-47) % MCV 96.7 (80.0-100.0) fL MCH 32.6 (25.0-34.0) pg MCHC 33.7 (32.0-36.0) g/dL RDW Std Deviation 47.6 H (36.4-46.3) fL RDW Coeff of Maritza 13.3 (11.5-14.5) % Plt Count 150 (130-400) K/uL MPV 9.8 (9.4-12.4) fL Immature Gran % (Auto) 0.4 % Neut % (Auto) 87.2 % Lymph % (Auto) 4.7 % [place] % (Auto) 7.1 % Eos % (Auto) 0.3 % Baso % (Auto) 0.3 % Neut # (Auto) 8.27 H (1.40-6.50) K/uL Lymph # (Auto) 0.45 L (1.20-3.40) K/uL [place] # (Auto) 0.67 H (0.11-0.59) K/uL Eos # (Auto) 0.03 (0.00-0.50) K/uL Baso # (Auto) 0.03 (0.00-0.20) K/uL Immature Gran # (Auto) 0.04 (0.01-0.20) K/uL PT 11.5 (9.0-12.0) Seconds INR 1.1 (0.9-1.1) POC Sodium 136 (135-144) mmol/L Sodium 136 (136-145) mmol/L POC Potassium 3.6 (3.3-5.0) mmol/L Potassium 3.6 (3.5-5.1) mmol/L POC Chloride 101 (101-112) mmol/L Chloride 103 (98-107) mmol/L Carbon Dioxide 24 (21-32) mmol/L POC Total CO2 20 L (24-31) mmol/L Anion Gap 9 (3-11) POC Anion Gap 19.0 (16-25) mmol/L POC BUN 19 H (7-18) mg/dl BUN 20 (6-23) mg/dl Creatinine 0.94 (0.6-1.2) mg/dl POC Creatinine 0.9 (0.6-1.3) mg/dl Est Cr Clr Drug Dosing Not Reportable Est GFR ( Amer) 66.9 ml/min Est GFR (Non-Af Amer) 57.7 ml/min BUN/Creatinine Ratio 21.3 H (10-20) Glucose 170 H (70-99(Fasting)) mg/dl POC Glucose (other) 167 H (70-99) mg/dl Calcium 9.3 (8.6-10.3) mg/dl POC Ioniz Calcium Darling 1.11 L (1.12-1.32) mmol/l Magnesium 2.1 (1.7-2.4) mg/dl Total Bilirubin 1.0 (0.2-1.0) mg/dl AST 27 (13-39) U/L ALT 15 (7-52) U/L Alkaline Phosphatase 57 (34-104) U/L Total Creatine Kinase 286 H (26-192) U/L Troponin I High Sens 9.2 (0-14) pg/ml Total Protein 6.7 (6.0-8.3) gm/dl Albumin 3.8 (3.4-5.0) gm/dl Globulin 2.9 (2.5-4.0) gm/dl Albumin/Globulin Ratio 1.3 (0.9-2) TSH 3.740 (0.300-4.500) uIu/ml SARS-CoV-2 (PCR) NEGATIVE (Negative) Influenza Type A (PCR) Negative (Neg) Influenza Type B (PCR) Negative (Neg) RSV (RT-PCR) Negative (Neg) SARS-CoV-2, RNA, NAAT 05/11/24 Range/Units Unknown WBC (4.8-10.8) K/ul RBC (4.20-5.40) M/uL Hgb (12.0-16.0) g/dl POC Hgb (12.0-16.0) g/dl Hct (37.0-47.0) % POC Hct (37-47) % MCV (80.0-100.0) fL MCH (25.0-34.0) pg MCHC (32.0-36.0) g/dL RDW Std Deviation (36.4-46.3) fL RDW Coeff of Maritza (11.5-14.5) % Plt Count (130-400) K/uL MPV (9.4-12.4) fL Immature Gran % (Auto) % Neut % (Auto) % Lymph % (Auto) % [place] % (Auto) % Eos % (Auto) % Baso % (Auto) % Neut # (Auto) (1.40-6.50) K/uL Lymph # (Auto) (1.20-3.40) K/uL [place] # (Auto) (0.11-0.59) K/uL Eos # (Auto) (0.00-0.50) K/uL Baso # (Auto) (0.00-0.20) K/uL Immature Gran # (Auto) (0.01-0.20) K/uL PT (9.0-12.0) Seconds INR (0.9-1.1) POC Sodium (135-144) mmol/L Sodium (136-145) mmol/L POC Potassium (3.3-5.0) mmol/L Potassium (3.5-5.1) mmol/L POC Chloride (101-112) mmol/L Chloride (98-107) mmol/L Carbon Dioxide (21-32) mmol/L POC Total CO2 (24-31) mmol/L Anion Gap (3-11) POC Anion Gap (16-25) mmol/L POC BUN (7-18) mg/dl BUN (6-23) mg/dl Creatinine (0.6-1.2) mg/dl POC Creatinine (0.6-1.3) mg/dl Est Cr Clr Drug Dosing Est GFR ( Amer) ml/min Est GFR (Non-Af Amer) ml/min BUN/Creatinine Ratio (10-20) Glucose (70-99(Fasting)) mg/dl POC Glucose (other) (70-99) mg/dl Calcium (8.6-10.3) mg/dl POC Ioniz Calcium Darling (1.12-1.32) mmol/l Magnesium (1.7-2.4) mg/dl Total Bilirubin (0.2-1.0) mg/dl AST (13-39) U/L ALT (7-52) U/L Alkaline Phosphatase (34-104) U/L Total Creatine Kinase (26-192) U/L Troponin I High Sens (0-14) pg/ml Total Protein (6.0-8.3) gm/dl Albumin (3.4-5.0) gm/dl Globulin (2.5-4.0) gm/dl Albumin/Globulin Ratio (0.9-2) TSH (0.300-4.500) uIu/ml SARS-CoV-2 (PCR) (Negative) Influenza Type A (PCR) (Neg) Influenza Type B (PCR) (Neg) RSV (RT-PCR) (Neg) SARS-CoV-2, RNA, NAAT Cancelled Administered Medications Discontinued Medications Acetaminophen (Acetaminophen 500 Mg Tab) 1,000 mg PO NOW STA Stop: 05/11/24 18:41 Last Admin: 05/11/24 19:22 Dose: 1,000 mg Documented By: JOSE M Sodium Chloride (Nss) 500 mls @ 999 mls/hr IV .Q31M ONE Stop: 05/11/24 17:47 Last Admin: 05/11/24 17:41 Dose: 999 mls/hr Documented By: GRISELDA Ioversol (Optiray 320 100ml) 95 ml IV ONCE ONE Stop: 05/11/24 17:28 Last Admin: 05/11/24 17:28 Dose: 95 ml Documented By: PLW Imaging Data Radiologist's Impression: Abdomen/Pelvis CT 05/11/24 17:10 CT abd pelvis IV con only CLINICAL HISTORY: fall, back pain TECHNIQUE: Helical axial images of the abdomen and pelvis were obtained and displayed. Automated dose lowering techniques and/or adjustment according to patient size were utilized for this exam. This exam was performed with intravenous contrast. CT DOSE: 1537.15 mGy.cm COMPARISON: Comparison is made to CT abdomen pelvis 04/30/2024 FINDINGS: Lower chest: Emphysema is seen. Liver: Left hepatic cyst is seen, otherwise unremarkable. Gallbladder and biliary tree: No calcified gallstones. Normal caliber wall. Physiologic prominence of the biliary ducts is noted. Pancreas: Pancreatic duct prominence is seen. There is a choledochocyst in the pancreatic head measuring 9 mm. Spleen: Splenule is incidentally noted. Adrenals: No evidence Kidneys and ureters: Subcentimeter hypodensities are too small to characterize. Bladder: Unremarkable. Reproductive organs: Unremarkable. Bowel: The appendix is normal. Lymph nodes Retroperitoneal: Unremarkable. Pelvic: Unremarkable. Mesenteric: Unremarkable. Peritoneum: Normal. Vessels: Atherosclerotic calcifications are seen. Infrarenal aortic aneurysm measures 24 mm. Abdominal wall: Unremarkable. Bones: Degenerative changes in the visualized spine. There is new linear lucency in the bilateral pedicles of L5. Cement arthroplasty is seen. Multilevel compression deformities are seen. IMPRESSION: New linear lucencies at the bilateral pedicles of L5 are compatible with acute fracture. Otherwise no acute fracture is seen. ACT 112: Negative or not required by law. Electronically signed by: Francisco Lewis M.D. 05/11/2024 6:[address] 05/11/24 17:10 CT cervical spine wo con CLINICAL HISTORY: fall TECHNIQUE: Multidetector row helical CT of the cervical spine was performed without administration of intravenous contrast. Coronal and sagittal reformations were obtained. Automated dose lowering techniques and/or adjustment according to patient size were utilized for this exam. Comparison: Comparison is made to CTA neck 03/30/2023 FINDINGS: No acute fractures or subluxations are identified. Degenerative changes are seen in the visualized spine. The alignment is normal. Emphysema is seen. IMPRESSION: Degenerative changes without evidence of acute bony injury. ACT 112: Negative or not required by law. Electronically signed by: Francisco Lewis M.D. 05/11/2024 5:[address] 05/11/24 17:10 CT chest diagnostic w con CLINICAL HISTORY: fall, R upper chest contusion TECHNIQUE: Multidetector row helical CT of the chest was performed with intravenous contrast. Coronal and sagittal reformations were obtained. Automated dose lowering techniques and/or adjustment according to patient size were utilized for this exam. Comparison: Comparison is made to CT chest 04/30/2024 FINDINGS: Lungs and pleura: Diffuse centrilobular emphysema is seen most prominent in the upper lobes. Scarring in the right upper lobe is unchanged without an underlying mass. Heart and pericardium: Heart size is normal. No pericardial effusion. Vessels: Mild atherosclerotic changes in the aorta and coronary arteries. Mediastinum and nica: Unremarkable. Chest wall and lower neck: Fat stranding is in the right chest wall. Abdomen: Unremarkable. Bones: Degenerative changes in the thoracic spine. Cemented arthroplasty of L1 compression deformity is seen. IMPRESSION: 1. Fat stranding is in the right chest wall compatible with contusion without underlying fracture. 2. Scarring is seen in the right upper lobe. No underlying mass is seen. ACT 112: Negative or not required by law. Electronically signed by: Francisco Lewis M.D. 05/11/2024 6:[address] 05/11/24 17:10 CT head/brain wo con CLINICAL HISTORY: fall, confusion Technique: Contiguous axial CT images of the head were acquired from the base of the skull to the vertex without intravenous contrast administration. Images were viewed in brain, subdural and bone windows. Automated dose lowering techniques and/or adjustment according to patient size were utilized for this exam. Comparison: Comparison is made to MRI brain 08/16/2023 Findings: The ventricles, basal cisterns, and cerebral sulci are normal. There is no acute intracranial hemorrhage or evidence of acute territorial infarction. Neither mass effect, shift of the midline structures, nor abnormal extra-axial fluid collections are shown. Imaged portions of the paranasal sinuses and mastoid air cells are clear. The orbits appear normal. There are no acute fractures of the calvaria or scalp swelling. Impression: No acute intracranial hemorrhage, no evidence of acute territorial infarction or other acute intracranial disease process. ACT 112: Negative or not required by law. Electronically signed by: Francisco Lewis M.D. 05/11/2024 5:40 PM Shoulder X-Ray 05/11/24 17:16 XR shoulder RT min 2V routine CLINICAL HISTORY: fall TECHNIQUE: 3 views of the right shoulder were obtained. Comparison: Comparison is made to CT chest 05/11/2024 FINDINGS: There is a mildly displaced fracture of the distal third of the clavicle. Joint spaces are well-preserved. Soft tissue swelling is seen about the shoulder. The visualized portions of the lungs are clear. IMPRESSION: Fracture of the distal third of the clavicle with associated soft tissue swelling. ACT 112: Negative or not required by law. Electronically signed by: Francisco Lewis M.D. 05/11/2024 6:16 PM Discharge Plan Visit Data Chief Complaint: Fall Stated Complaint: FELL ED Provider: Raoul Teague Discharge Problem: Fall, Clavicle fracture, Malignant neoplasm of lung, Weakness, Fracture of lumbar spine Patient Disposition: Being Evaluated by Hospitalist Forms Stand Alone Forms: My [facility] Prescriptions Prescriptions: No Action latanoprost 0.005 % drops 1 drops OP QPM dorzolamide-timolol 22.3-6.8 mg/mL drops 1 drp OPR BID sertraline 100 mg tablet 100 mg PO DAILY Rx Instructions: TAKE 1 TABLET BY MOUTH ONCE DAILY FOR ANXIETY levothyroxine 88 mcg tablet 88 mcg PO DAILY Rx Instructions: Take 1 tablet by mouth once daily pantoprazole 40 mg tablet,delayed release (DR/EC) 40 mg PO DAILY Rx Instructions: Take 1 tablet by mouth once daily Referrals Referrals: Radha Ruvalcaba MD [Primary Care Provider] - Discharge Problem: Fall Qualifiers: Encounter type: initial encounter Qualified Code(s): W19.XXXA - Unspecified fall, initial encounter Clavicle fracture Qualifiers: Encounter type: initial encounter Clavicle location: lateral end Fracture type: closed Laterality: right
[2024-05-11 17:27] LABS: iSTAT Creatinine 0.9 mg/dl (0.6-1.3); iSTAT Hemoglobin 12.2 g/dl (12.0-16.0); iSTAT Ionized Calcium 1.11 mmol/l (1.12-1.32); iSTAT Potassium 3.6 mmol/L (3.3-5.0)
[2024-05-11] MEDS: OPTIRAY 320 100ml IV ONE (17:28)
[2024-05-11 17:37] LABS: Basophils # (auto) 0.03 K/uL (0.00-0.20); Basophils % (auto) 0.3 %; Eosinophils # (auto) 0.03 K/uL (0.00-0.50); Eosinophils % (auto) 0.3 %; Hematocrit (blood only) 35.6 % (37.0-47.0); Immature Granulocytes # (auto) 0.04 K/uL (0.01-0.20); Immature Granulocytes % (auto) 0.4 %; Lymphocytes # (auto) 0.45 K/uL (1.20-3.40); Lymphocytes % (auto) 4.7 %; Mean Corpuscular Hemoglobin 32.6 pg (25.0-34.0); Mean Corpuscular Hgb Conc 33.7 g/dL (32.0-36.0); Mean Corpuscular Volume 96.7 fL (80.0-100.0); Mean Platelet Volume 9.8 fL (9.4-12.4); Monocytes # (auto) 0.67 K/uL (0.11-0.59); Monocytes % (auto) 7.1 %; Neutrophils # (auto) 8.27 K/uL (1.40-6.50); Neutrophils % (auto) 87.2 %; Platelet Count 150 K/uL (130-400); RDW Coefficient of Variation 13.3 % (11.5-14.5); RDW Standard Deviation 47.6 fL (36.4-46.3); Red Blood Count 3.68 M/uL (4.20-5.40); White Blood Count 9.49 K/ul (4.8-10.8)
[2024-05-11] MEDS: SODIUM CHLORIDE 0.9% 500 ML IV ONE (17:41)
--- NOTE | 2024-05-11 17:42 | CT Scan Report ---
CT head/brain wo con CLINICAL HISTORY: fall, confusion Technique: Contiguous axial CT images of the head were acquired from the base of the skull to the reyna mitesh without intravenous contrast administration. Images were viewed in brain, subdural [facility]. Automated dose lowering techniques and/or adjustment according to patient size were utilized for this exam. Comparison: Comparison is made to MRI brain 08/16/2023 Findings: The ventricles, basal cisterns, and cerebral sulci are normal. There is no acute intracranial hemorrh age or evidence of acute territorial infarction. Neither mass effect, shift of the midline structures , nor abnormal extra-axial fluid collections are shown. Imaged portions of the paranasal sinuses and mastoid air cells are clear. The orbits appear normal. There are no acute fractures of the calvaria or scalp swelling. Impression: No acute intracranial hemorrhage, no evidence of acute territorial infarction or other acute intracra nial disease process. ACT 112: Negative or not required by law. Electronically signed by: Francisco Leiws M.D. 05/11/2024 5:40 PM
--- NOTE | 2024-05-11 17:45 | CT Scan Report ---
CT cervical spine wo con CLINICAL HISTORY: fall TECHNIQUE: Multidetector row helical CT of the cervical spine was performed without administration of intravenous contrast. Coronal and sagittal reformations were obtained. Automated dose lowering techn iques and/or adjustment according to patient size were utilized for this exam. Comparison: Comparison is made to CTA neck 03/30/2023 FINDINGS: No acute fractures or subluxations are identified. Degenerative changes are seen in the visualized sp ine. The alignment is normal. Emphysema is seen. IMPRESSION: Degenerative changes without evidence of acute bony injury. ACT 112: Negative or not required by law. Electronically signed by: Francisco Lewis M.D. 05/11/2024 5:43 PM
[2024-05-11 17:46] LABS: Alanine Aminotransferase 15 U/L (7-52); Albumin Globulin Ratio 1.3 (0.9-2); Albumin Level 3.8 gm/dl (3.4-5.0); Alkaline Phosphatase 57 U/L (34-104); Anion Gap 9 (3-11); Aspartate Aminotransferase 27 U/L (13-39); BUN Creatinine Ratio 21.3 (10-20); Blood Urea Nitrogen 20 mg/dl (6-23); Calcium 9.3 mg/dl (8.6-10.3); Carbon Dioxide 24 mmol/L (21-32); Chloride 103 mmol/L (98-107); Creatine Kinase 286 U/L (26-192); Est GFR (African American) 66.9 ml/min; Est GFR (Non-African American) 57.7 ml/min; Globulin 2.9 gm/dl (2.5-4.0); Glucose 170 mg/dl (70-99(Fasting)); Magnesium 2.1 mg/dl (1.7-2.4); Potassium 3.6 mmol/L (3.5-5.1); Sodium 136 mmol/L (136-145); Total Protein 6.7 gm/dl (6.0-8.3)
[2024-05-11 17:52] LABS: Troponin I High Sensitivity 9.2 pg/ml (0-14)
--- NOTE | 2024-05-11 18:02 | CT Scan Report ---
CT chest diagnostic w con CLINICAL HISTORY: fall, R upper chest contusion TECHNIQUE: Multidetector row helical CT of the chest was performed with intravenous contrast. Coronal and sagittal reformations were obtained. Automated dose lowering techniques and/or adjustment accord ing to patient size were utilized for this exam. Comparison: Comparison is made to CT chest 04/30/2024 FINDINGS: Lungs and pleura: Diffuse centrilobular emphysema is seen most prominent in the upper lobes. Scarring in the right upper lobe is unchanged without an underlying mass. Heart and pericardium: Heart size is normal. No pericardial effusion. Vessels: Mild atherosclerotic changes in the aorta and coronary arteries. Mediastinum and nica: Unremarkable. Chest wall and lower neck: Fat stranding is in the right chest wall. Abdomen: Unremarkable. Bones: Degenerative changes in the thoracic spine. Cemented arthroplasty of L1 compression deformity is seen. IMPRESSION: 1. Fat stranding is in the right chest wall compatible with contusion without underlying fracture. 2. Scarring is seen in the right upper lobe. No underlying mass is seen. ACT 112: Negative or not required by law. Electronically signed by: Francisco Lewis M.D. 05/11/2024 6:00 PM
[2024-05-11 18:12] LABS: INR 1.1 (0.9-1.1); Prothrombin Time 11.5 Seconds (9.0-12.0)
--- NOTE | 2024-05-11 18:17 | XRay Report ---
XR shoulder RT min 2V routine CLINICAL HISTORY: fall TECHNIQUE: 3 views of the right shoulder were obtained. Comparison: Comparison is made to CT chest 05/11/2024 FINDINGS: There is a mildly displaced fracture of the distal third of the clavicle. Joint spaces are well-prese rved. Soft tissue swelling is seen about the shoulder. The visualized portions of the lungs are clear . IMPRESSION: Fracture of the distal third of the clavicle with associated soft tissue swelling. ACT 112: Negative or not required by law. Electronically signed by: Francisco Lewis M.D. 05/11/2024 6:16 PM
--- NOTE | 2024-05-11 18:40 | CT Scan Report ---
CT abd pelvis IV con only CLINICAL HISTORY: fall, back pain TECHNIQUE: Helical axial images of the abdomen and pelvis were obtained and displayed. Automated dose lowering techniques and/or adjustment according to patient size were utilized for this exam. This e xam was performed with intravenous contrast. CT DOSE: 1537.15 mGy.cm COMPARISON: Comparison is made to CT abdomen pelvis 04/30/2024 FINDINGS: Lower chest: Emphysema is seen. Liver: Left hepatic cyst is seen, otherwise unremarkable. Gallbladder and biliary tree: No calcified gallstones. Normal caliber wall. Physiologic prominence of the biliary ducts is noted. Pancreas: Pancreatic duct prominence is seen. There is a choledochocyst in the pancreatic head measur ing 9 mm. Spleen: Splenule is incidentally noted. Adrenals: No evidence Kidneys and ureters: Subcentimeter hypodensities are too small to characterize. Bladder: Unremarkable. Reproductive organs: Unremarkable. Bowel: The appendix is normal. Lymph nodes Retroperitoneal: Unremarkable. Pelvic: Unremarkable. Mesenteric: Unremarkable. Peritoneum: Normal. Vessels: Atherosclerotic calcifications are seen. Infrarenal aortic aneurysm measures 24 mm. Abdominal wall: Unremarkable. Bones: Degenerative changes in the visualized spine. There is new linear lucency in the bilateral ped icles of L5. Cement arthroplasty is seen. Multilevel compression deformities are seen. IMPRESSION: New linear lucencies at the bilateral pedicles of L5 are compatible with acute fracture. Otherwise no acute fracture is seen. ACT 112: Negative or not required by law. Electronically signed by: Francisco Lewis M.D. 05/11/2024 6:37 PM
[2024-05-11 18:45] LABS: Influenza A virus by PCR Negative (Neg); Influenza B virus by PCR Negative (Neg); RSV by PCR Negative (Neg); SARS CoV2 RNA(COVID-19) Ceph NEGATIVE (Negative)
[2024-05-11] MEDS: ACETAMINOPHEN 500 MG TAB PO STA (19:22)
[2024-05-11 20:20] LABS: Appearance Urine Cloudy (Clear); Bacteria Urine Automated None Seen (None Seen); Bilirubin Urine Negative (Negative); Blood Urine Negative (Negative); Cast Urine Automated 0-2 /lpf (0-2); Color Urine Yellow; Epithelial Cell Urine Auto 0-2 /hpf (0-2); Glucose Urine UA Negative (Negative); Ketones Urine Trace (Negative); Leukocyte Esterase Urine Negative (Negative); Nitrite Urine Negative (Negative); Protein Urine Trace (Negative); Specific Gravity Urine > 1.045 (1.000-1.030); Urobilinogen Urine Negative (Negative); WBC Urine Automated 0-5 /hpf (0-5)
[2024-05-11 20:21] LABS: Amorphous Sediment Urine Present (None Prsent)
--- NOTE | 2024-05-11 20:45 | History & Physical Report ---
Date of Service May 11, 2024 Assessment & Plan (1) Closed right clavicular fracture: (2) Fracture of fifth lumbar vertebra: (3) Fall: (4) Malignant cachexia: (5) Malignant neoplasm of lung: (6) GERD (gastroesophageal reflux disease): (7) Depression with anxiety: Plan Distal right clavicular fracture/L5 pedicle fracture- Acetaminophen 650 mg by mouth every 6 hours as needed for mild pain or fever Tramadol 50 mg by mouth every 4 hours as needed for moderate pain Zofran 4 mg IV every 6 hours as needed Consult orthopedic surgery Will need PT/OT assessment Daughter will stay with patient upon discharge to help in her care Status post fall- Patient does not remember exactly the events, but reportedly was pulling a box containing meals from mom into the house CT scan head was negative CT scan cervical spine showed degenerative disease CT scan of chest showed centrilobular emphysema, right upper lobe scarring, and right chest wall contusion CT scan abdomen pelvis showed acute pedicle fractures at the L5 level X-ray of shoulder showed a distal third right clavicular closed fracture Lung cancer/malignant cachexia- LR at 80 mL/h Has upcoming appointment with oncology GERD- Continue pantoprazole CODE STATUS: DNR/DNI History of Present Illness Chief Complaint: The patient presents to the emergency department due to concerns of her daughter after an unwitnessed fall at home on 05/09. The daughter found out about the fall on 05/10, and stayed with the patient through 05/11, and because of persistent shoulder pain and back pain, the patient was brought to the emergency department for assessment on the evening of 05/11. Primary Care Provider: Radha Ruvalcaba MD The patient is a 79-year-old female with a past medical history including lung cancer presently undergoing evaluation by oncology, malignant cachexia, generalized weakness, status post bronchoscopy with biopsy, GERD, tobacco use history, hypothyroidism, hypercholesterolemia, depression with anxiety and vitamin D deficiency. Patient presented to the emergency department with right shoulder pain, low back pain, and confusion with memory loss since a fall that was initially took place on 05/09. Workup in the emergency department included a chest x-ray showing a distal right clavicular fracture, CT scan of abdomen pelvis showing acute pedicle fractures at the L5 level, CT scan head was negative, and CT scan of the chest showed centrilobular emphysema, right upper lobe scarring, and right chest wall contusion. CT scan of cervical spine showed degeneration. The patient could not recount the fall, other than to say that she was pulling a box with meals from mom and from outside, fell, and does not remember the rest of the events. Her daughter saw her on that day, when she was eating, and stayed with her through the evening of 05/11, until she was brought to the ED for assessment Allergies Allergy/AdvReac Type Severity Reaction Status Date / Time No Known Allergies Allergy Unverified 05/11/24 18:53 Home Medications Medication Instructions Recorded Confirmed Type latanoprost 0.005 % eye drops 1 drops ophthalmic (eye) QPM 06/21/19 05/11/24 History dorzolamide 22.3 mg-timolol 6.8 1 drp OPR BID 10/06/21 05/11/24 History mg/mL eye drops levothyroxine 88 mcg tablet 88 mcg PO DAILY 05/11/24 05/11/24 History pantoprazole 40 mg tablet,delayed 40 mg PO DAILY 05/11/24 05/11/24 History release sertraline 100 mg tablet 100 mg PO DAILY 05/11/24 05/11/24 History Past Med/Surg History Problem List (Updated 05/12/24 @ 06:19 by Edenilson Peoples MD) Closed right clavicular fracture Fracture of fifth lumbar vertebra Fracture of lumbar spine (Acute) Weakness (Acute) Clavicle fracture (Acute) Fall (Acute) Advanced care planning/counseling discussion Palliative care by specialist Dyspnea and respiratory abnormalities Malignant cachexia Weakness generalized S/P bronchoscopy with biopsy 04/15/23 Malignant neoplasm of lung (Chronic) Biopsy on 04/15/23 Recurrent falls Obstructive pattern present on pulmonary function testing Epidermoid cyst of face GERD (gastroesophageal reflux disease) Chronic rhinitis (Chronic) Constipation (Chronic) Smokes 1.5 packs of cigarettes per day (Chronic) Osteoporosis (Chronic) Hypothyroidism (Chronic) Hypercholesterolemia (Chronic) Depression with anxiety (Chronic) Hyperglycemia (Chronic) Vitamin D deficiency (Chronic) Medical History Chronic rhinitis Constipation Glaucoma Hypercholesterolemia Hypothyroidism Malignant neoplasm of lung Osteoporosis Smokes 1.5 packs of cigarettes per day Surgical History History of cataract surgery S/P bronchoscopy with biopsy History of laryngoscopy History of tubal ligation History of tonsillectomy History of colposcopy Previous back surgery S/P wisdom tooth extraction Family History Mother Stroke Diabetes Father Lung disease caused by breathing particles Brother Cancer Sister Cancer Son Accident Daughter No problems noted. Daughter Cervical cancer Diverticulitis Other Hypertension Thrombophlebitis Denies family history of Ovarian cancer Prostate cancer Breast cancer Social History Smoking Status: Former smoker Tobacco Type: Cigarettes Age Started Using Tobacco: 12; packs per day: 0.5; Cigarettes Per Day: 30; Second Hand Exposure: No; Do You Dip or Chew Tobacco: No; Hx Alcohol Use: No Hx Substance Use: No Preferred Language: Faroese Communication Ability: Effective Visual Impairment: No Limitations Hearing Ability: Normal Finisher Brush Required: No Beliefs That Will Affect Care: None marital status: / Current Living Situation: Family Current Living Situation Comment: W/ Daughter current occupational status: retired current occupation: Retail How many Children do You have: 2 Other Information That Helps Us Care for You: No Feels Safe at Home: Yes Safety Concerns: Feels Safe At This Time Childhood Exposure to Second-Hand Smoke: No Diet: regular caffeine: Yes during the past year weight has: remained stable Dental Care, Regularly: No Physical Activity Frequency: Does not Exercise Seatbelt Use: always Sunscreen Use: Yes Assistive Devices: Denture - Upper, Denture - Lower and Glasses Review of Systems Review of Systems: The patient denies chest pain, palpitations, shortness of breath, dyspnea on exertion, cough, lower extremity swelling, sore throat, fevers, chills, sweats, nausea, vomiting, diarrhea , constipation, abdominal pain, pelvic pain, blood in urine or stool, dysuria, urinary frequency or urgency, loss of consciousness, rash, abnormal bruising or bleeding, or night sweats. The review of systems is otherwise negative other than for that already noted above, and at least 10 systems have been reviewed. Physical Exam Physical Exam: The patient is awake, alert and oriented 3, well developed and well nourished, normocephalic and atraumatic, lying in bed and in no acute distress. HEENT--PERRL, EOMI, mucous membranes and oropharynx dry. Neck--supple. No JVD. No bruits. Thyroid normal, trachea midline, no adenopathy. Heart--normal S1 and S2. No murmurs, rubs or gallops. Lungs--clear bilaterally, no respiratory distress, no accessory muscle use. Abdomen--normal bowel sounds and soft. Nontender. Nondistended, no hernias or masses, no organomegaly. Extremities--no cyanosis or clubbing. No edema. There are good distal pulses b/l. Dermatologic--normal skin turgor, normal color, no abnormal lymph nodes, no rash. Neurologic--cranial nerves II through XII grossly intact. Rheumatologic--mild reproducible pain over the distal right clavicle and lower lumbar spine. Psychiatric--normal affect. Results & Data Results & Data Vital Signs (Past 12 Hours) Vital Signs Temp Pulse Pulse Resp BP Pulse Ox O2 Del Method 05/11/24 19:17 74 19 116/69 95 Room Air 05/11/24 18:00 76 05/11/24 17:21 Room Air 05/11/24 16:53 35.9 C L 83 16 93 Room Air Laboratory Results Laboratory Results WBC 9.49 K/ul (4.8-10.8) 05/11/24 17:15 RBC 3.68 M/uL (4.20-5.40) L 05/11/24 17:15 Hgb 12.0 g/dl (12.0-16.0) 05/11/24 17:15 POC Hgb 12.2 g/dl (12.0-16.0) 05/11/24 17:14 Hct 35.6 % (37.0-47.0) L 05/11/24 17:15 POC Hct 36 % (37-47) L 05/11/24 17:14 MCV 96.7 fL (80.0-100.0) 05/11/24 17:15 MCH 32.6 pg (25.0-34.0) 05/11/24 17:15 MCHC 33.7 g/dL (32.0-36.0) 05/11/24 17:15 RDW Std Deviation 47.6 fL (36.4-46.3) H 05/11/24 17:15 RDW Coeff of Maritza 13.3 % (11.5-14.5) 05/11/24 17:15 Plt Count 150 K/uL (130-400) 05/11/24 17:15 MPV 9.8 fL (9.4-12.4) 05/11/24 17:15 Immature Gran % (Auto) 0.4 % 05/11/24 17:15 Neut % (Auto) 87.2 % 05/11/24 17:15 Lymph % (Auto) 4.7 % 05/11/24 17:15 [place] % (Auto) 7.1 % 05/11/24 17:15 Eos % (Auto) 0.3 % 05/11/24 17:15 Baso % (Auto) 0.3 % 05/11/24 17:15 Neut # (Auto) 8.27 K/uL (1.40-6.50) H 05/11/24 17:15 Lymph # (Auto) 0.45 K/uL (1.20-3.40) L 05/11/24 17:15 [place] # (Auto) 0.67 K/uL (0.11-0.59) H 05/11/24 17:15 Eos # (Auto) 0.03 K/uL (0.00-0.50) 05/11/24 17:15 Baso # (Auto) 0.03 K/uL (0.00-0.20) 05/11/24 17:15 Immature Gran # (Auto) 0.04 K/uL (0.01-0.20) 05/11/24 17:15 PT 11.5 Seconds (9.0-12.0) 05/11/24 17:15 INR 1.1 (0.9-1.1) 05/11/24 17:15 POC Sodium 136 mmol/L (135-144) 05/11/24 17:14 Sodium 136 mmol/L (136-145) 05/11/24 17:15 POC Potassium 3.6 mmol/L (3.3-5.0) 05/11/24 17:14 Potassium 3.6 mmol/L (3.5-5.1) 05/11/24 17:15 POC Chloride 101 mmol/L (101-112) 05/11/24 17:14 Chloride 103 mmol/L (98-107) 05/11/24 17:15 Carbon Dioxide 24 mmol/L (21-32) 05/11/24 17:15 POC Total CO2 20 mmol/L (24-31) L 05/11/24 17:14 Anion Gap 9 (3-11) 05/11/24 17:15 POC Anion Gap 19.0 mmol/L (16-25) 05/11/24 17:14 POC BUN 19 mg/dl (7-18) H 05/11/24 17:14 BUN 20 mg/dl (6-23) 05/11/24 17:15 Creatinine 0.94 mg/dl (0.6-1.2) 05/11/24 17:15 POC Creatinine 0.9 mg/dl (0.6-1.3) 05/11/24 17:14 Est Cr Clr Drug Dosing Not Reportable 05/11/24 17:15 Est GFR ( Amer) 66.9 ml/min 05/11/24 17:15 Est GFR (Non-Af Amer) 57.7 ml/min 05/11/24 17:15 BUN/Creatinine Ratio 21.3 (10-20) H 05/11/24 17:15 Glucose 170 mg/dl (70-99(Fasting)) H 05/11/24 17:15 POC Glucose (other) 167 mg/dl (70-99) H 05/11/24 17:14 Calcium 9.3 mg/dl (8.6-10.3) 05/11/24 17:15 POC Ioniz Calcium [place] 1.11 mmol/l (1.12-1.32) L 05/11/24 17:14 Magnesium 2.1 mg/dl (1.7-2.4) 05/11/24 17:15 Total Bilirubin 1.0 mg/dl (0.2-1.0) 05/11/24 17:15 AST 27 U/L (13-39) 05/11/24 17:15 ALT 15 U/L (7-52) 05/11/24 17:15 Alkaline Phosphatase 57 U/L (34-104) 05/11/24 17:15 Total Creatine Kinase 286 U/L (26-192) H 05/11/24 17:15 Troponin I High Sens 9.2 pg/ml (0-14) 05/11/24 17:15 Total Protein 6.7 gm/dl (6.0-8.3) 05/11/24 17:15 Albumin 3.8 gm/dl (3.4-5.0) 05/11/24 17:15 Globulin 2.9 gm/dl (2.5-4.0) 05/11/24 17:15 Albumin/Globulin Ratio 1.3 (0.9-2) 05/11/24 17:15 TSH 3.740 uIu/ml (0.300-4.500) 05/11/24 17:15 Urine Color Yellow 05/11/24 18:07 Urine Appearance Cloudy (Clear) A 05/11/24 18:07 Urine pH 7.0 (4.5-7.5) 05/11/24 18:07 Ur Specific [place] > 1.045 (1.000-1.030) H 05/11/24 18:07 Urine Protein Trace (Negative) H 05/11/24 18:07 Urine Glucose (UA) Negative (Negative) 05/11/24 18:07 Urine Ketones Trace (Negative) H 05/11/24 18:07 Urine Blood Negative (Negative) 05/11/24 18:07 Urine Nitrite Negative (Negative) 05/11/24 18:07 Urine Bilirubin Negative (Negative) 05/11/24 18:07 Urine Urobilinogen Negative (Negative) 05/11/24 18:07 Ur Leukocyte Esterase Negative (Negative) 05/11/24 18:07 Urine WBC (Auto) 0-5 /hpf (0-5) 05/11/24 18:07 Urine RBC (Auto) 3-5 /hpf (0-2) H 05/11/24 18:07 U Hyaline Cast (Auto) 0-2 /lpf (0-2) 05/11/24 18:07 U Epithel Cells (Auto) 0-2 /hpf (0-2) 05/11/24 18:07 Urine Bacteria (Auto) None Seen (None Seen) 05/11/24 18:07 Amorphous Sediment Present (None Prsent) A 05/11/24 18:07 SARS-CoV-2 (PCR) NEGATIVE (Negative) 05/11/24 17:32 Influenza Type A (PCR) Negative (Neg) 05/11/24 17:32 Influenza Type B (PCR) Negative (Neg) 05/11/24 17:32 RSV (RT-PCR) Negative (Neg) 05/11/24 17:32 SARS-CoV-2, RNA, NAAT Cancelled 05/11/24 Unknown Impressions Abdomen/Pelvis CT 05/11/24 17:10 CT abd pelvis IV con only CLINICAL HISTORY: fall, back pain TECHNIQUE: Helical axial images of the abdomen and pelvis were obtained and displayed. Automated dose lowering techniques and/or adjustment according to patient size were utilized for this exam. This exam was performed with intravenous contrast. CT DOSE: 1537.15 mGy.cm COMPARISON: Comparison is made to CT abdomen pelvis 04/30/2024 FINDINGS: Lower chest: Emphysema is seen. Liver: Left hepatic cyst is seen, otherwise unremarkable. Gallbladder and biliary tree: No calcified gallstones. Normal caliber wall. Physiologic prominence of the biliary ducts is noted. Pancreas: Pancreatic duct prominence is seen. There is a choledochocyst in the pancreatic head measuring 9 mm. Spleen: Splenule is incidentally noted. Adrenals: No evidence Kidneys and ureters: Subcentimeter hypodensities are too small to characterize. Bladder: Unremarkable. Reproductive organs: Unremarkable. Bowel: The appendix is normal. Lymph nodes Retroperitoneal: Unremarkable. Pelvic: Unremarkable. Mesenteric: Unremarkable. Peritoneum: Normal. Vessels: Atherosclerotic calcifications are seen. Infrarenal aortic aneurysm measures 24 mm. Abdominal wall: Unremarkable. Bones: Degenerative changes in the visualized spine. There is new linear lucency in the bilateral pedicles of L5. Cement arthroplasty is seen. Multilevel compression deformities are seen. IMPRESSION: New linear lucencies at the bilateral pedicles of L5 are compatible with acute fracture. Otherwise no acute fracture is seen. ACT 112: Negative or not required by law. Electronically signed by: Francisco Lewis M.D. 05/11/2024 6:[address] 05/11/24 17:10 CT cervical spine wo con CLINICAL HISTORY: fall TECHNIQUE: Multidetector row helical CT of the cervical spine was performed without administration of intravenous contrast. Coronal and sagittal reformations were obtained. Automated dose lowering techniques and/or adjustment according to patient size were utilized for this exam. Comparison: Comparison is made to CTA neck 03/30/2023 FINDINGS: No acute fractures or subluxations are identified. Degenerative changes are seen in the visualized spine. The alignment is normal. Emphysema is seen. IMPRESSION: Degenerative changes without evidence of acute bony injury. ACT 112: Negative or not required by law. Electronically signed by: Francisco Lewis M.D. 05/11/2024 5:[address] 05/11/24 17:10 CT chest diagnostic w con CLINICAL HISTORY: fall, R upper chest contusion TECHNIQUE: Multidetector row helical CT of the chest was performed with intravenous contrast. Coronal and sagittal reformations were obtained. Automated dose lowering techniques and/or adjustment according to patient size were utilized for this exam. Comparison: Comparison is made to CT chest 04/30/2024 FINDINGS: Lungs and pleura: Diffuse centrilobular emphysema is seen most prominent in the upper lobes. Scarring in the right upper lobe is unchanged without an underlying mass. Heart and pericardium: Heart size is normal. No pericardial effusion. Vessels: Mild atherosclerotic changes in the aorta and coronary arteries. Mediastinum and nica: Unremarkable. Chest wall and lower neck: Fat stranding is in the right chest wall. Abdomen: Unremarkable. Bones: Degenerative changes in the thoracic spine. Cemented arthroplasty of L1 compression deformity is seen. IMPRESSION: 1. Fat stranding is in the right chest wall compatible with contusion without underlying fracture. 2. Scarring is seen in the right upper lobe. No underlying mass is seen. ACT 112: Negative or not required by law. Electronically signed by: Francisco Lewis M.D. 05/11/2024 6:[address] 05/11/24 17:10 CT head/brain wo con CLINICAL HISTORY: fall, confusion Technique: Contiguous axial CT images of the head were acquired from the base of the skull to the vertex without intravenous contrast administration. Images were viewed in brain, subdural and bone windows. Automated dose lowering techniques and/or adjustment according to patient size were utilized for this exam. Comparison: Comparison is made to MRI brain 08/16/2023 Findings: The ventricles, basal cisterns, and cerebral sulci are normal. There is no acute intracranial hemorrhage or evidence of acute territorial infarction. Neither mass effect, shift of the midline structures, nor abnormal extra-axial fluid collections are shown. Imaged portions of the paranasal sinuses and mastoid air cells are clear. The orbits appear normal. There are no acute fractures of the calvaria or scalp swelling. Impression: No acute intracranial hemorrhage, no evidence of acute territorial infarction or other acute intracranial disease process. ACT 112: Negative or not required by law. Electronically signed by: Francisco Lewis M.D. 05/11/2024 5:40 PM Shoulder X-Ray 05/11/24 17:16 XR shoulder RT min 2V routine CLINICAL HISTORY: fall TECHNIQUE: 3 views of the right shoulder were obtained. Comparison: Comparison is made to CT chest 05/11/2024 FINDINGS: There is a mildly displaced fracture of the distal third of the clavicle. Joint spaces are well-preserved. Soft tissue swelling is seen about the shoulder. The visualized portions of the lungs are clear. IMPRESSION: Fracture of the distal third of the clavicle with associated soft tissue swelling. ACT 112: Negative or not required by law. Electronically signed by: Francisco Lewis M.D. 05/11/2024 6:16 PM Code Status & VTE Plan Code Status DNR/DNI VTE Prophylaxis Plan VTE Prophylaxis will be ordered: Yes PG Care Time/CCT Total # of Minutes Spent Total Time Spent with Patient: Total time spent is greater than 50% in coordination of care (as documented) at patient's floor/unit and/or counseling patient: Coding Level of Care Code 93708 INT INP/OBS CARE 3/75MIN Diagnoses Closed right clavicular fracture S42.001A Fracture of fifth lumbar vertebra S32.059A Fall W19.XXXA Encounter type: initial encounter Malignant cachexia R64 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 lung C34.90 GERD (gastroesophageal reflux disease) K21.9 Depression with anxiety F41.8 (3) Fall Encounter type: initial encounter Qualified Code(s): W19.XXXA - Unspecified fall, initial encounter
[2024-05-11] MEDS: traMADol HCL 50 MG TABLET PO PRN (20:59)
[2024-05-11] MEDS: LACTATED RINGER'S 1,000 ML IV SCH (21:00)
[2024-05-11] MEDS ORDERED: ACETAMINOPHEN 325 MG TAB PO PRN (22:52)
[2024-05-12] MEDS: DORZOLAMIDE/TIMOLOL 22.3/6.8MG/ML 10 ML BTL OPR SCH (01:12)
[2024-05-12] MEDS: LATANOPROST 0.005% OP SOLN 2.5 ML BTL OP SCH (01:13)
[2024-05-12] MEDS: LEVOTHYROXINE SODIUM 88 MCG TABLET PO SCH (06:05)
[2024-05-12 06:46] LABS: Basophils # (auto) 0.03 K/uL (0.00-0.20); Basophils % (auto) 0.5 %; Eosinophils # (auto) 0.16 K/uL (0.00-0.50); Eosinophils % (auto) 2.6 %; Hematocrit (blood only) 31.3 % (37.0-47.0); Hemoglobin 10.6 g/dl (12.0-16.0); Immature Granulocytes # (auto) 0.02 K/uL (0.01-0.20); Immature Granulocytes % (auto) 0.3 %; Lymphocytes # (auto) 0.75 K/uL (1.20-3.40); Lymphocytes % (auto) 12.3 %; Mean Corpuscular Hemoglobin 32.2 pg (25.0-34.0); Mean Corpuscular Hgb Conc 33.9 g/dL (32.0-36.0); Mean Corpuscular Volume 95.1 fL (80.0-100.0); Mean Platelet Volume 9.9 fL (9.4-12.4); Monocytes # (auto) 0.61 K/uL (0.11-0.59); Neutrophils # (auto) 4.53 K/uL (1.40-6.50); Neutrophils % (auto) 74.3 %; Platelet Count 126 K/uL (130-400); RDW Coefficient of Variation 13.4 % (11.5-14.5); RDW Standard Deviation 47.2 fL (36.4-46.3); Red Blood Count 3.29 M/uL (4.20-5.40)
[2024-05-12 07:21] LABS: Albumin Level 3.2 gm/dl (3.4-5.0); BUN Creatinine Ratio 23.5 (10-20); Calcium 8.6 mg/dl (8.6-10.3); Creatinine Clr Calc Pharmacy 45.7 ml/min; Est GFR (African American) 96.4 ml/min; Est GFR (Non-African American) 83.2 ml/min; Magnesium 2.1 mg/dl (1.7-2.4); Phosphorus 2.8 mg/dl (2.5-4.9); Potassium 3.6 mmol/L (3.5-5.1)
--- NOTE | 2024-05-12 07:34 | Electrocardiogram Report ---
Test Reason : Blood Pressure : / mmHG Vent. Rate : 084 BPM Atrial Rate : 084 BPM P-R Int : 144 ms QRS Dur : 076 ms QT Int : 374 ms P-R-T Axes : 048 014 073 degrees QTc Int : 441 ms Normal sinus rhythm Premature atrial complexes T wave abnormality, consider anterior ischemia Abnormal ECG When compared with ECG of 30-MAR-2023 13:52, Premature atrial complexes are now Present Confirmed by Philipp Mata ([id number]) on 05/12/2024 7:34:27 AM Referred By: REFERRED SELF Confirmed By:Philipp Mata
[2024-05-12] MEDS: PANTOprazole 40 MG TAB PO SCH (08:45)
[2024-05-12] MEDS: ACETAMINOPHEN 325 MG TAB PO SCH (09:48)
--- NOTE | 2024-05-12 11:20 | Hospitalist Progress Note ---
Date of Service May 12, 2024 Assessment & Plan (1) Closed right clavicular fracture: Plan: Patient presented to the ER on 05/11 following a fall from 05/09. Main complaints were right shoulder pain, low back pain, confusion/memory loss. -reviewed CXR 05/11: distal right clavicular fracture -scheduled Acetaminophen 650mg four times daily -tramadol 50mg q4h for breakthrough pain -zofran 4mg IV every 6 hours prn -reviewed ortho consult 05/12: continue supportive care, ortho-spine surgery for vertebral fracture -await PT/OT assessment (2) Fracture of fifth lumbar vertebra: Plan: -reviewed CTAP 05/11: new linear lucencies at b/l pedicles of L5 compatible with acute fracture -consulted ortho spine -plan for pain control as above -await PT/OT consult (3) Malignant neoplasm of lung: Plan: -follows with oncology -reviewed chest CT 05/11: scarring in RUL. no underlying mass seen -reviewed head CT 05/11: negative -per nursing patient's O2 sat drops in night time -plan for overnight pulse ox monitoring -Reviewed CBC 05/12: hgb 10.6 (likely diluational from IVF), WBC WNL -Reviewed BMP 05/12: electrolytes/kidney function WNL AM CBC, BMP Plan Chronic conditions: GERD- Continue pantoprazole hypothyroidism: Levothyroxine Anxiety/depression: setraline CODE STATUS: DNR/DNI Diet: regular DVT prophylaxis: SCD's Disposition: continue inpatient stay for ortho-spine consult and PT/OT eval Updated daughter at bedside 05/12. Admission and Anticipated Discharge Date Admission Date: May 11, 2024 Supervising Physician Co-Signing Physician Notes The patient was not seen by me. The chart was reviewed. Case discussed with PREM Gonsalez. Agree with assessment and plan Subjective Patient seen and examined this morning. Patient was complaining of back pain. Patient was refusing pain medication but was agreeable to starting scheduled tylenol. Patients nurse also states her O2 was dropping overnight. Patient denies home oxygen use. Did discuss with patients daughter who states the patient is "foggy" in the morning usually upon waking. Patient follows routinely with oncology for her lung cancer. She has an upcoming appointment this week. Physical Exam 2 Constitutional: WD/WN, vitals as above Eyes: PERRL, conjunctivae normal, anicteric sclerae Respiratory: normal respiratory effort, lungs clear to auscultation Cardiovascular: RRR, no murmur, no edema Skin: no rashes, warm and dry Psychiatric: A+Ox3, euthymic affect Results & Data Results & Data Vital Signs (Past 12 Hours) Vital Signs Temp Pulse Pulse Pulse Resp BP Pulse Ox 05/12/24 09:33 05/12/24 07:50 36.6 C 62 16 127/71 92 05/12/24 07:08 54 L 05/12/24 02:51 64 05/12/24 02:07 05/12/24 02:00 36.8 C 65 20 99/60 L 91 05/12/24 00:08 36.7 C 67 21 91/53 L 91 O2 Del Method 05/12/24 09:33 Room Air 05/12/24 07:50 Room Air 05/12/24 07:08 05/12/24 02:51 05/12/24 02:07 Room Air 05/12/24 02:00 Room Air 05/12/24 00:08 Room Air Laboratory Results 05/12/24 05:55 05/12/24 05:55 Diagnostic Findings Abdomen/Pelvis CT 05/11/24 17:10 IMPRESSION: New linear lucencies at the bilateral pedicles of L5 are compatible with acute fracture. Otherwise no acute fracture is seen. Electronically signed by: Francisco Lewis M.D. 05/11/2024 6:[address] 05/11/24 17:10 IMPRESSION: Degenerative changes without evidence of acute bony injury. Electronically signed by: Francisco Lewis M.D. 05/11/2024 5:[address] 05/11/24 17:10 IMPRESSION: 1. Fat stranding is in the right chest wall compatible with contusion without underlying fracture. 2. Scarring is seen in the right upper lobe. No underlying mass is seen. Electronically signed by: Francisco Lewis M.D. 05/11/2024 6:[address] 05/11/24 17:10 Impression: No acute intracranial hemorrhage, no evidence of acute territorial infarction or other acute intracranial disease process. Electronically signed by: Francisco Lewis M.D. 05/11/2024 5:40 PM Shoulder X-Ray 05/11/24 17:16 IMPRESSION: Fracture of the distal third of the clavicle with associated soft tissue swelling. Electronically signed by: Francisco Lewis M.D. 05/11/2024 6:16 PM PG Care Time/CCT Total # of Minutes Spent Total Time Spent with Patient: Total time spent is greater than 50% in coordination of care (as documented) at patient's floor/unit and/or counseling patient: Coding Level of Care Code 62986 SUB INP/OBS CARE 3/50MIN Diagnoses Closed nondisplaced fracture of right clavicle, unspecified part of clavicle, initial encounter S42.001A Clavicle location: unspecified part of clavicle Encounter type: initial encounter Fracture alignment: nondisplaced Closed fracture of fifth lumbar vertebra, unspecified fracture morphology, initial encounter S32.059A Encounter type: initial encounter Fracture morphology: unspecified fracture morphology Fracture type: closed 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 lung C34.11 Laterality: right Lung location: upper lobe of lung (1) Closed right clavicular fracture Clavicle location: unspecified part of clavicle Encounter type: initial encounter Fracture alignment: nondisplaced Qualified Code(s): S42.001A - Fracture of unspecified part of right clavicle, initial encounter for closed fracture (2) Fracture of fifth lumbar vertebra Encounter type: initial encounter Fracture morphology: unspecified fracture morphology Fracture type: closed Qualified Code(s): S32.059A - Unspecified fracture of fifth lumbar vertebra, initial encounter for closed fracture (3) Malignant neoplasm of lung Laterality: right Lung location: upper lobe of lung Qualified Code(s): C 34.11 - Malignant neoplasm of upper lobe, right bronchus or lung
--- NOTE | 2024-05-12 14:20 | Orthopedic Consultation ---
Date of Consultation May 12, 2024 Assessment & Plan (1) Closed right clavicular fracture: The patient and her daughter were educated regarding today's findings. Conservative care measures were discussed. She has very little discomfort at this time. She can use a sling if desired for support, especially when she is up and walking. She may leave it off when sitting quietly or when sleeping. Apply ice to the shoulder frequently as needed for pain relief. She may use Tylenol every 6 hours as needed. Follow-up in the office in 2 to 3 weeks for reassessment with new films. The patient was seen in conjunction with Dr. Schroeder, who also evaluated the patient and concurred with today's diagnosis and treatment plan. (2) Fracture of fifth lumbar vertebra: Orthopedic spine service will need to be consulted for evaluation and management of her L5 fracture. Continue with Tylenol or low-level narcotics as needed for pain relief. Supervising Physician Co-Signing Physician Notes I, Dr. Schroeder, saw and examined the patient. I discussed the management with my PA. I reviewed my PAs note and agree with the documented findings and attest to completing the substantive portion of medical decision making and plan of care I developed. Patient c/o LBP PE: Sitting relatively comfortably in chair next to bed Focusing on the patient's right upper extremity: 2+ radial pulse Sensation to light touch is intact distally. Motor to their median, radial, ulnar, AIN, PIN, muscular cutaneous nerves is intact. Full range of motion of their elbow, forearm, and wrist. Range of motion of the shoulder: Forward elevation 160; Abduction 160 - tenderness to palpation about the shoulder. + Bruising about the shoulder/Trapezius/clavicle. IMPRESSION: Right distal clavicle non-displaced fracture, closed PLAN: RICE Sling for comfort. Gradually resume activities as tolerated for RUE. Recommend Ortho spine consult for L5 pedicle fracture Continue care per Hospitalist service. F/U as outpatient in 2-[address] Schroeder's office. History of Present Illness Reason for Consultation: Right clavicle fracture Requesting Physician: Ruby Schroeder MD Attending Physician: Hardik Copeland MD History of Present Illness This 79-year-old female with a history of hypothyroidism, hypertension, malignant neoplasm of the lung, generalized weakness, GERD, elevated simone sterol, depression with anxiety, chronic tobacco use, and recurrent falls, is seen today in her room. She has a history of falling on Tuesday afternoon or evening. She does not remember distinctly falling. She had a box of meals delivered on Tuesday, and apparently was dragging them across the floor. She may have fallen at that time. Her daughter checked on her on , and noticed a large ecchymotic area present over the chest wall and right clavicle. The patient was brought to the ED yesterday for persisting low back pain and right shoulder pain. Films obtained at that time revealed a mildly displaced distal third clavicle fracture as well as an acute L5 pedicle fracture. She was admitted through the hospitalist service and orthopedics was consulted for her right clavicle fracture. At this time she denies any significant shoulder pain. She is more bothered by her back. Her daughter is at bedside. No additional complaints. She is currently partially in a sling, but does not seem to be using it. Allergies Allergy/AdvReac Type Severity Reaction Status Date / Time No Known Allergies Allergy Unverified 05/11/24 18:53 Home Medications Medication Instructions Recorded Confirmed Type latanoprost 0.005 % eye drops 1 drops ophthalmic (eye) QPM 06/21/19 05/11/24 History dorzolamide 22.3 mg-timolol 6.8 1 drp OPR BID 10/06/21 05/11/24 History mg/mL eye drops levothyroxine 88 mcg tablet 88 mcg PO DAILY 05/11/24 05/11/24 History pantoprazole 40 mg tablet,delayed 40 mg PO DAILY 05/11/24 05/11/24 History release sertraline 100 mg tablet 100 mg PO DAILY 05/11/24 05/11/24 History Patient History Medical History Glaucoma Surgical History History of cataract surgery History of laryngoscopy Stripping of Vocal Cords History of tubal ligation History of tonsillectomy History of colposcopy Pt unsure of this Previous back surgery S/P wisdom tooth extraction Family History Mother , in her 70s Stroke Diabetes Father , "young" Lung disease caused by breathing particles Worked in [employer] Brother Cancer Had 6 brothers. Only one had cancer that pt knows of - unknown type Sister Cancer Had 4 sisters. One with pancreatic cancer Son Accident Stabbed Daughter No problems noted. Daughter Cervical cancer Diverticulitis Other Hypertension Thrombophlebitis Denies family history of Ovarian cancer Prostate cancer Breast cancer Social History Smoking Status: Former smoker Tobacco Type: Cigarettes Age Started Using Tobacco: 12; packs per day: 0.5; Cigarettes Per Day: 30; Second Hand Exposure: No; Do You Dip or Chew Tobacco: No; Hx Alcohol Use: No Hx Substance Use: No Preferred Language: Samoan Communication Ability: Effective Visual Impairment: No Limitations Hearing Ability: Normal Technician Preventative Medicine Required: No Beliefs That Will Affect Care: None marital status: / Current Living Situation: Family Current Living Situation Comment: W/ Daughter current occupational status: retired current occupation: Retail How many Children do You have: 2 Other Information That Helps Us Care for You: No Feels Safe at Home: Yes Safety Concerns: Feels Safe At This Time Childhood Exposure to Second-Hand Smoke: No Diet: regular caffeine: Yes during the past year weight has: remained stable Dental Care, Regularly: No Physical Activity Frequency: Does not Exercise Seatbelt Use: always Sunscreen Use: Yes Assistive Devices: Denture - Upper, Denture - Lower and Glasses Review of Systems Review of Systems: All systems reviewed & are unremarkable except as noted in HPI & below Physical Exam Physical Exam: General: Frail, thin, elderly female, in no acute distress. Sitting in a bedside chair. She just finished lunch. Alert and conversive. Skin: Warm and dry with fair turgor. No rashes. She has extensive ecchymosis present over the anterior right chest wall and shoulder. Mild edema. Musculoskeletal: Right upper extremity evaluation reveals no pain with palpation over her digits, hand, wrist, forearm, elbow, or upper arm. She has excellent active motion of the digits, wrist, elbow, and shoulder. She is able to reach overhead in both forward flexion and abduction. There is soreness with palpation over the distal clavicle. Motion of the shoulder does not seem to bother her clavicle in any significant fashion. No pain with palpation over the proximal clavicle or sternum. Neurologic: Gross sensation is intact across the right arm by soft touch. Peripheral pulses are 2+. The patient is able to cross her fingers, AB duct the digits, extend the wrist and thumb, as well as flex the wrist and make a full fist. Results & Data Vital Signs (Past 12 Hours) Vital Signs Temp Pulse Pulse Resp BP Pulse Ox O2 Del Method 05/12/24 11:34 37.2 C 64 18 99/62 L 91 Room Air 05/12/24 09:33 Room Air 05/12/24 07:50 36.6 C 62 16 127/71 92 Room Air 05/12/24 07:08 54 L 05/12/24 02:51 64 Diagnostic Findings Shoulder x-ray obtained yesterday was reviewed. The patient has a mildly displaced distal third clavicle fracture. CT scan of the abdomen pelvis shows bilateral pedicles of L5 fractures.
[2024-05-13 06:46] LABS: Basophils # (auto) 0.05 K/uL (0.00-0.20); Eosinophils # (auto) 0.22 K/uL (0.00-0.50); Eosinophils % (auto) 4.3 %; Hematocrit (blood only) 34.2 % (37.0-47.0); Hemoglobin 11.4 g/dl (12.0-16.0); Immature Granulocytes # (auto) 0.02 K/uL (0.01-0.20); Immature Granulocytes % (auto) 0.4 %; Lymphocytes % (auto) 11.7 %; Mean Corpuscular Hemoglobin 32.2 pg (25.0-34.0); Mean Corpuscular Hgb Conc 33.3 g/dL (32.0-36.0); Mean Corpuscular Volume 96.6 fL (80.0-100.0); Mean Platelet Volume 9.7 fL (9.4-12.4); Monocytes # (auto) 0.56 K/uL (0.11-0.59); Monocytes % (auto) 10.9 %; Neutrophils # (auto) 3.67 K/uL (1.40-6.50); Neutrophils % (auto) 71.7 %; Platelet Count 142 K/uL (130-400); RDW Coefficient of Variation 13.2 % (11.5-14.5); RDW Standard Deviation 47.5 fL (36.4-46.3); Red Blood Count 3.54 M/uL (4.20-5.40); White Blood Count 5.12 K/ul (4.8-10.8)
[2024-05-13 07:11] LABS: Albumin Level 3.2 gm/dl (3.4-5.0); BUN Creatinine Ratio 20.3 (10-20); Calcium 8.5 mg/dl (8.6-10.3); Creatinine Clr Calc Pharmacy 49.6 ml/min; Est GFR (African American) 98.4 ml/min; Est GFR (Non-African American) 84.9 ml/min; Phosphorus 3.1 mg/dl (2.5-4.9); Potassium 3.9 mmol/L (3.5-5.1)
--- NOTE | 2024-05-13 08:21 | Orthopedic Progress Note ---
Date of Service May 13, 2024 Assessment & Plan (1) Closed right clavicular fracture: Plan: The patient was educated regarding today's findings. Conservative care measures were discussed. No surgical intervention is required. She continues to have very little discomfort at this time. She can use a sling if desired for support, especially when she is up and walking. She may leave it off when sitting quietly or when sleeping. Apply ice to the shoulder frequently as needed for pain relief. Continue Tylenol every 6 hours as needed. Follow-up in the office in 2 to 3 weeks for reassessment with new films. The patient was seen in conjunction with Dr. Schroeder, who also evaluated the patient and concurred with today's diagnosis and treatment plan. Orthopedics will sign off at this time unless there are any further issues. Admission and Anticipated Discharge Date Admission Date: May 11, 2024 Supervising Physician Co-Signing Physician Notes I, Dr. Schroeder, saw and examined the patient. I discussed the management with my PA. I reviewed my PAs note and agree with the documented findings and attest to completing the substantive portion of medical decision making and plan of care I developed. Subjective This 79-year-old female is seen today in her room. Upon initial exam, she is actually sleeping on the right shoulder. She wakes easily. The patient complains of some pain in her back, but denies any pain in her shoulder. No numbness or tingling. She is wondering when she can go home. No new complaints. Physical Exam Physical Exam: General: Frail, elderly female, in no acute distress. Sleeping. Awakens easily. Alert and oriented to place. Skin: Warm and dry with fair turgor. No rashes. She continues to have extensive ecchymosis present over her right chest wall and shoulder. No edema. Musculoskeletal: Right shoulder evaluation reveals no pain with palpation over her sternoclavicular joint or midshaft clavicle. She does have pain with palpation over the distal clavicle and AC joint. No pain with palpation over the glenohumeral joint, humerus, or elbow. She has excellent motion of the right shoulder with active forward flexion and overhead reach. She has full motion of the elbow. Shoulder circumduction is intact without discomfort. Intact motor function to the wrist and digits. Neurologic: Gross sensation is intact across the right arm by soft touch. Radial, median, and ulnar nerve functions are intact for both motor and sensory. Results & Data Vital Signs (Past 12 Hours) Vital Signs Temp Pulse Pulse Pulse Resp BP Pulse Ox 05/13/24 07:29 36.6 C 68 18 130/73 94 05/13/24 07:10 55 L 05/13/24 03:56 36.6 C 60 18 137/79 99 05/13/24 02:19 58 L 05/13/24 00:35 58 L 05/13/24 00:00 36.7 C 62 18 136/81 92 05/12/24 23:06 59 L 05/12/24 22:07 61 Pulse Ox O2 Del Method O2 Del Method O2 Flow Rate O2 Flow Rate 05/13/24 07:29 Room Air 05/13/24 07:10 05/13/24 03:56 Nasal Cannula 1 05/13/24 02:19 98 Nasal Cannula 0.5 05/13/24 00:35 97 Nasal Cannula 0.5 05/13/24 00:00 Nasal Cannula 1 05/12/24 23:06 05/12/24 22:07 88 L Room Air Laboratory Results CBC obtained this morning shows a white count of 5.12. H&H of 11.4 and 34.2. Platelets 142,000. Electrolytes are normal. BUN 13 and creatinine 0.64. Glucose this morning is 89. (1) Closed right clavicular fracture Clavicle location: unspecified part of clavicle Encounter type: initial encounter Fracture alignment: nondisplaced Qualified Code(s): S42.001A - Fracture of unspecified part of right clavicle, initial encounter for closed fracture
[2024-05-13] MEDS: SERTRALINE HCL 100 MG TABLET PO SCH (08:30)
--- NOTE | 2024-05-13 10:17 | Hospitalist Progress Note ---
Date of Service May 13, 2024 Assessment & Plan (1) Closed right clavicular fracture: Plan: Patient presented to the ER on 05/11 following a fall from 05/09. Main complaints were right shoulder pain, low back pain, confusion/memory loss. -reviewed CXR 05/11: distal right clavicular fracture -scheduled Acetaminophen 650mg four times daily -tramadol 50mg q4h for breakthrough pain -zofran 4mg IV every 6 hours prn -reviewed ortho note 05/13: continue supportive care, ortho-spine surgery for vertebral fracture, follow up outpatient -await PT/OT assessment -PT awaiting ortho spine assessment. (2) Fracture of fifth lumbar vertebra: Plan: -reviewed CTAP 05/11: new linear lucencies at b/l pedicles of L5 compatible with acute fracture -consulted ortho spine, appreciate recommendations -plan for pain control as above -await PT/OT consult (3) Malignant neoplasm of lung: Plan: -follows with oncology, upcoming appointment on Tuesday -reviewed chest CT 05/11: scarring in RUL. no underlying mass seen -reviewed head CT 05/11: negative -per nursing patient's O2 sat drops in night time -plan for overnight pulse ox monitoring -Reviewed CBC 05/13: hgb 11.4, WBC WNL -Reviewed BMP 05/13: electrolytes/kidney function WNL AM CBC, BMP Plan Chronic conditions: GERD- Continue pantoprazole hypothyroidism: Levothyroxine Anxiety/depression: sertraline CODE STATUS: DNR/DNI Diet: regular DVT prophylaxis: SCD's Disposition: continue inpatient stay for ortho-spine consult and PT/OT eval Updated daughter at bedside 05/13. Admission and Anticipated Discharge Date Admission Date: May 11, 2024 Supervising Physician Co-Signing Physician Notes The patient was not seen by me. The chart was reviewed. Case discussed with PREM Gonsalez. Agree with assessment and plan Subjective Patient seen and examined this morning. Patient reports back pain depending upon what position she is in. She is also forgetful and is unsure why she is in the hospital and wants to go home. PT is awaiting ortho spine consult prior to evaluation. She denied chest pain or SOB at time of my encounter. Also spoke with daughter at bedside this afternoon and all questions were answered. Physical Exam 2 Constitutional: WD/WN, vitals as above Eyes: PERRL, conjunctivae normal, anicteric sclerae Respiratory: normal respiratory effort, lungs clear to auscultation Cardiovascular: RRR, no murmur, no edema Skin: no rashes, warm and dry Psychiatric: A+Ox3, euthymic affect Results & Data Results & Data Vital Signs (Past 12 Hours) Vital Signs Temp Pulse Pulse Pulse Resp BP Pulse Ox 05/13/24 07:29 36.6 C 68 18 130/73 94 05/13/24 07:10 55 L 05/13/24 03:56 36.6 C 60 18 137/79 99 05/13/24 02:19 58 L 05/13/24 00:35 58 L 05/13/24 00:00 36.7 C 62 18 136/81 92 05/12/24 23:06 59 L Pulse Ox O2 Del Method O2 Del Method O2 Flow Rate O2 Flow Rate 05/13/24 07:29 Room Air 05/13/24 07:10 05/13/24 03:56 Nasal Cannula 1 05/13/24 02:19 98 Nasal Cannula 0.5 05/13/24 00:35 97 Nasal Cannula 0.5 05/13/24 00:00 Nasal Cannula 1 05/12/24 23:06 Laboratory Results 05/13/24 05:53 05/13/24 05:53 PG Care Time/CCT Total # of Minutes Spent Total Time Spent with Patient: Total time spent is greater than 50% in coordination of care (as documented) at patient's floor/unit and/or counseling patient: Coding Level of Care Code 45151 SUB INP/OBS CARE 3/50MIN Diagnoses Closed nondisplaced fracture of right clavicle, unspecified part of clavicle, initial encounter S42.001A Clavicle location: unspecified part of clavicle Encounter type: initial encounter Fracture alignment: nondisplaced Closed fracture of fifth lumbar vertebra, unspecified fracture morphology, initial encounter S32.059A Encounter type: initial encounter Fracture morphology: unspecified fracture morphology Fracture type: closed 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 lung C34.11 Laterality: right Lung location: upper lobe of lung (1) Closed right clavicular fracture Clavicle location: unspecified part of clavicle Encounter type: initial encounter Fracture alignment: nondisplaced Qualified Code(s): S42.001A - Fracture of unspecified part of right clavicle, initial encounter for closed fracture (2) Fracture of fifth lumbar vertebra Encounter type: initial encounter Fracture morphology: unspecified fracture morphology Fracture type: closed Qualified Code(s): S32.059A - Unspecified fracture of fifth lumbar vertebra, initial encounter for closed fracture (3) Malignant neoplasm of lung Laterality: right Lung location: upper lobe of lung Qualified Code(s): C 34.11 - Malignant neoplasm of upper lobe, right bronchus or lung
[2024-05-13] MEDS: ONDANSETRON INJ 2 MG/ML 2 ML VIAL IV PRN (17:28)
[2024-05-14 07:00] LABS: Basophils # (auto) 0.04 K/uL (0.00-0.20); Basophils % (auto) 0.8 %; Eosinophils # (auto) 0.19 K/uL (0.00-0.50); Hematocrit (blood only) 35.3 % (37.0-47.0); Hemoglobin 11.9 g/dl (12.0-16.0); Immature Granulocytes # (auto) 0.06 K/uL (0.01-0.20); Immature Granulocytes % (auto) 1.3 %; Lymphocytes # (auto) 0.66 K/uL (1.20-3.40); Lymphocytes % (auto) 13.9 %; Mean Corpuscular Hemoglobin 32.4 pg (25.0-34.0); Mean Corpuscular Hgb Conc 33.7 g/dL (32.0-36.0); Mean Corpuscular Volume 96.2 fL (80.0-100.0); Mean Platelet Volume 9.7 fL (9.4-12.4); Monocytes # (auto) 0.56 K/uL (0.11-0.59); Monocytes % (auto) 11.8 %; Neutrophils # (auto) 3.25 K/uL (1.40-6.50); Neutrophils % (auto) 68.2 %; Platelet Count 176 K/uL (130-400); RDW Coefficient of Variation 13.2 % (11.5-14.5); RDW Standard Deviation 46.5 fL (36.4-46.3); Red Blood Count 3.67 M/uL (4.20-5.40); White Blood Count 4.76 K/ul (4.8-10.8)
[2024-05-14 07:27] LABS: Albumin Level 3.5 gm/dl (3.4-5.0); BUN Creatinine Ratio 15.5 (10-20); Calcium 8.7 mg/dl (8.6-10.3); Creatinine Clr Calc Pharmacy 43.8 ml/min; Est GFR (African American) 93.9 ml/min; Phosphorus 3.4 mg/dl (2.5-4.9)
--- NOTE | 2024-05-14 13:15 | Hospitalist Progress Note ---
Date of Service May 14, 2024 Assessment & Plan (1) Closed right clavicular fracture: Plan: Patient presented to the ER on 05/11 following a fall from 05/09. Main complaints were right shoulder pain, low back pain, confusion/memory loss. -CXR : distal right clavicular fracture - Pain control: scheduled Tylenol, as needed tramadol - Ortho consult - continue supportive care- sling for comfort, ice - Follow up in 2-3 weeks outpatient -await PT/OT assessment -PT awaiting ortho spine assessment. (2) Fracture of fifth lumbar vertebra: Plan: -CTAP: new linear lucencies at b/l pedicles of L5 compatible with acute fracture - orthospine consult, Dr. Murrell stated will see 05/14 -plan for pain control as above (3) Malignant neoplasm of lung: Plan: -follows with oncology, upcoming appointment on Tuesday -chest CT: scarring in RUL. no underlying mass seen -head CT: negative -per nursing patient's O2 sat drops in night time -overnight pulse ox with 21 minutes of desaturation - needs home O2 Plan Chronic conditions: GERD- Continue pantoprazole hypothyroidism: Levothyroxine Anxiety/depression: sertraline DVT prophylaxis: SCD's Disposition: continue inpatient stay for ortho-spine consult and PT/OT eval Downgrade to medical Updated daughter at bedside 05/13. Admission and Anticipated Discharge Date Admission Date: May 11, 2024 Supervising Physician Co-Signing Physician Notes PREM Supervision Note: I did not personally see or examine the patient today, but I verified all negro points of PREM Liao's assessment and plan with the following exceptions/additions: None Subjective Patient sitting up in the chair time I encounter. States pain comes and goes. Pain is more so in her upper back, rather than her shoulder. Good appetite. Does not recall why she fell. Is anxious to get out of the hospital. Telemetry sinus rhythm 50s and 60s Review of Systems Review of Systems: All systems reviewed & are unremarkable except as noted in Subjective Physical Exam Physical Exam: General: NAD, VS as above Resp: normal respiratory effort, lungs clear to auscultation CV: RRR, no murmur, Abd: normal bowel sounds, non tender, no hepatosplenomegaly Extremities: extensive bruising over right chest/clavicle/shoulder. Mild tenderness to Palpation. able to move fingers distally Neuro: A&O x3, Results & Data Results & Data Vital Signs (Past 12 Hours) Vital Signs Temp Pulse Pulse Resp BP Pulse Ox O2 Del Method 05/14/24 11:25 36.7 C 73 20 125/84 93 Room Air 05/14/24 07:33 Room Air 05/14/24 07:14 36.7 C 65 14 129/80 90 Room Air 05/14/24 07:08 57 L 05/14/24 03:49 36.6 C 62 18 136/69 94 Room Air Laboratory Results CBC and chemistry reviewed PG Care Time/CCT Total # of Minutes Spent Total Time Spent with Patient: Total time spent is greater than 50% in coordination of care (as documented) at patient's floor/unit and/or counseling patient: Coding Level of Care Code 18947 SUB INP/OBS CARE 2/35MIN Diagnoses Closed nondisplaced fracture of right clavicle, unspecified part of clavicle, initial encounter S42.001A Clavicle location: unspecified part of clavicle Encounter type: initial encounter Fracture alignment: nondisplaced Closed fracture of fifth lumbar vertebra, unspecified fracture morphology, initial encounter S32.059A Encounter type: initial encounter Fracture morphology: unspecified fracture morphology Fracture type: closed 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 lung C34.11 Laterality: right Lung location: upper lobe of lung (1) Closed right clavicular fracture Clavicle location: unspecified part of clavicle Encounter type: initial encounter Fracture alignment: nondisplaced Qualified Code(s): S42.001A - Fracture of unspecified part of right clavicle, initial encounter for closed fracture (2) Fracture of fifth lumbar vertebra Encounter type: initial encounter Fracture morphology: unspecified fracture morphology Fracture type: closed Qualified Code(s): S32.059A - Unspecified fracture of fifth lumbar vertebra, initial encounter for closed fracture (3) Malignant neoplasm of lung Laterality: right Lung location: upper lobe of lung Qualified Code(s): C34.11 - Malignant neoplasm of upper lobe, right bronchus or lung
[2024-05-14] MEDS: POLYETHYLENE (MIRALAX) 17 GM PACK PO PRN (13:57)
[2024-05-14] MEDS: DOCUSATE SODIUM 100 MG CAP PO SCH (13:57)
--- NOTE | 2024-05-14 16:58 | CT Scan Report ---
CT lumbar spine wo con HISTORY: 79 years-old Female lumbar fracture acute low back pain COMPARISON: CT 04/11/2024, 04/30/2024, PET/CT 11/09/2023 TECHNIQUE: Multiple axial CT images of the lumbar spine were obtained without IV contrast. A dose low ering technique was used consistent with the principals of LENIN. FINDINGS: Numerous chronic thoracolumbar compression deformities. Demineralized appearance of the bones. Chroni c L1 compression fracture with kyphoplasty. Intervertebral disc spaces are generally well maintained. Moderate multilevel spondylitic spurring with moderate to severe facet arthrosis. There is suggestio n of a subtle acute on chronic the compression fracture involving L4 which is unchanged from however is new from 04/30/2024. Acute vertical fracture lines within the bilateral pedicles/pars int erarticularis at L5 again noted which are also seen on the study from 05/11/2024, new from 04/30/2024. These demonstrate to 2 mm displacement Unchanged sclerotic appearance of the sacral promontory. Suboptimal evaluation of the central canal and neural foramen by CT technique. Atherosclerosis of the aorta. Trace pleural effusions. Pulmonary emphysema with mild bibasilar atelectasis. Atherosclerosis of the abdominal aorta with infrarenal ectasia, 2.7 cm. IMPRESSION: 1. Acute bilateral L5 pedicle/pars interarticularis fractures now demonstrate displacement up to 2 mm . 2. Mild acute on chronic L4 compression deformity without retropulsion. 3. Chronic thoracolumbar compression deformities include a chronic L1 fracture with kyphoplasty. 4. Trace pleural effusions. ACT 112: Negative or not required by law. The above report was generated using voice recognition software. It may contain grammatical, syntax o r spelling errors. Electronically signed by: Chaim Mota M.D. 05/14/2024 4:57 PM
--- NOTE | 2024-05-15 10:20 | Consultation ---
Date of Consultation May 15, 2024 Assessment & Plan (1) Fracture of lumbar spine: Dr. Murrell has reviewed imaging and treatment plan. Treatment is conservative. She has bilateral pedicle fractures of L5 status post fall. I have ordered an LSO brace to be worn with ambulation/activity. May remove when lying down or in a seated position. No lifting over 5 pounds. Ambulate ad lionel. Will sign off. She can follow-up in our office in a few weeks for reevaluation and follow-up imaging History of Present Illness Attending Physician: Janeth Henning MD History of Present Illness Is a pleasant 79-year-old female with lung cancer who is somewhat of a poor historian but has noted a fall recently. She was admitted via the ER on 05/11/2024 because of a fall and disorientation. She has some back pain but states she has had chronic back pain for many years. No radicular pain. At home she states she ambulates independently. She states twisting and and certain movements reproduce her pain. Lying supine is most comfortable. Allergies Allergy/AdvReac Type Severity Reaction Status Date / Time No Known Allergies Allergy Unverified 05/11/24 18:53 Home Medications Medication Instructions Recorded Confirmed Type latanoprost 0.005 % eye drops 1 drops ophthalmic (eye) QPM 06/21/19 05/11/24 History dorzolamide 22.3 mg-timolol 6.8 1 drp OPR BID 10/06/21 05/11/24 History mg/mL eye drops levothyroxine 88 mcg tablet 88 mcg PO DAILY 05/11/24 05/11/24 History pantoprazole 40 mg tablet,delayed 40 mg PO DAILY 05/11/24 05/11/24 History release sertraline 100 mg tablet 100 mg PO DAILY 05/11/24 05/11/24 History Patient History Medical History Glaucoma Surgical History History of cataract surgery History of laryngoscopy Stripping of Vocal Cords History of tubal ligation History of tonsillectomy History of colposcopy Pt unsure of this Previous back surgery S/P wisdom tooth extraction Family History Mother , in her 70s Stroke Diabetes Father , "young" Lung disease caused by breathing particles Worked in [employer] Brother Cancer Had 6 brothers. Only one had cancer that pt knows of - unknown type Sister Cancer Had 4 sisters. One with pancreatic cancer Son Accident Stabbed Daughter No problems noted. 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 Worker Required: No Beliefs That Will Affect Care: None marital status: / Current Living Situation: Family Current Living Situation Comment: W/ Daughter current occupational status: retired current occupation: Retail How many Children do You have: 2 Other Information That Helps Us Care for You: No Feels Safe at Home: Yes Safety Concerns: Feels Safe At This Time Childhood Exposure to Second-Hand Smoke: No Diet: regular caffeine: Yes during the past year weight has: remained stable Dental Care, Regularly: No Physical Activity Frequency: Does not Exercise Seatbelt Use: always Sunscreen Use: Yes Assistive Devices: Glasses Review of Systems Review of Systems: All systems reviewed & are unremarkable except as noted in HPI & below Physical Exam Physical Exam: Laying in bed in no acute distress Cooperative with exam Significant ecchymosis noted over the right clavicle and shoulder She is able to roll over independent only for me. No ecchymosis or lacerations of the thoracic and lumbar spine. She only has tenderness over the right sciatic notch. No tenderness over the midline lumbar spine. Strength is intact bilateral lower extremities. Results & Data Vital Signs (Past 12 Hours) Vital Signs Temp Pulse Resp BP Pulse Ox O2 Del Method 05/15/24 07:11 36.6 C 67 15 100/61 92 Room Air 05/15/24 07:00 Room Air Diagnostic Findings [facility] [place] [phone] CT Scan Report Patient: MARKELL COLLINS Admit Date: 05/11/24 MR#: [id number] Address1: [address] Acct ID:[id number] Address2: Date: 1945 [facility] Zip: [place] [address] Age: 79 Location: 2N Sex: F Room/Bed: [facility] Att Phy: Janeth Henning MD Diagnosis: S/P FALL, CLAVICLE AND L5 FRACTURES, CONFUSION, ME Susanne Phy: Radha Ruvalcaba MD Service Date: 05/14/24 Fam Phy: Interpreting Phy: Chaim MotaAdmit Phy: Edenilson Peoples MD Ordering Phy: Carlton Murrell D.O. cc: ~ CT lumbar spine wo con HISTORY: 79 years-old Female lumbar fracture acute low back pain COMPARISON: CT 04/11/2024, 04/30/2024, PET/CT 11/09/2023 TECHNIQUE: Multiple axial CT images of the lumbar spine were obtained without IV contrast. A dose lowering technique was used consistent with the principals of ALARA. FINDINGS: Numerous chronic thoracolumbar compression deformities. Demineralized appearance of the bones. Chronic L1 compression fracture with kyphoplasty. Intervertebral disc spaces are generally well maintained. Moderate multilevel spondylitic spurring with moderate to severe facet arthrosis. There is suggestion of a subtle acute on chronic the compression fracture involving L4 which is unchanged from 05/11/2024 however is new from 04/30/2024. Acute vertical fracture lines within the bilateral pedicles/pars interarticularis at L5 again noted which are also seen on the study from 05/11/2024, new from 04/30/2024. These demonstrate to 2 mm displacement Unchanged sclerotic appearance of the sacral promontory. Suboptimal evaluation of the central canal and neural foramen by CT technique. Atherosclerosis of the aorta. Trace pleural effusions. Pulmonary emphysema with mild bibasilar atelectasis. Atherosclerosis of the abdominal aorta with infrarenal ectasia, 2.7 cm. IMPRESSION: 1. Acute bilateral L5 pedicle/pars interarticularis fractures now demonstrate displacement up to 2 mm. 2. Mild acute on chronic L4 compression deformity without retropulsion. 3. Chronic thoracolumbar compression deformities include a chronic L1 fracture with kyphoplasty. 4. Trace pleural effusions. ACT 112: Negative or not required by law. The above report was generated using voice recognition software. It may contain grammatical, syntax or spelling errors. Electronically signed by: Chaim Mota M.D. 05/14/2024 4:57 PM Dictated: 05/14/24 1619 Transcribed: 05/14/24 162 (1) Fracture of lumbar spine Encounter type: initial encounter Fracture morphology: other fracture Fracture type: closed Lumbar vertebra fracture level: L5 Qualified Code(s): S32.058A - Other fracture of fifth lumbar vertebra, initial encounter for closed fracture
--- NOTE | 2024-05-15 13:46 | Hospitalist Progress Note ---
Date of Service May 15, 2024 Assessment & Plan (1) Closed right clavicular fracture: Plan: Patient presented to the ER on 05/11 following a fall from 05/09. Main complaints were right shoulder pain, low back pain, confusion/memory loss. -CXR : distal right clavicular fracture - Pain control: scheduled Tylenol, as needed tramadol - Ortho consult - continue supportive care- sling for comfort, ice - Follow up in 2-3 weeks outpatient -await PT/OT assessment - cannot be preformed until LSO brace is delivered (2) Fracture of fifth lumbar vertebra: Plan: -CTAP: new linear lucencies at b/l pedicles of L5 compatible with acute fracture - orthospine consult - conservative measures - LSO brace, no lifting over 5 lbs - follow up outpatient for new imaging -plan for pain control as above (3) Malignant neoplasm of lung: Plan: -follows with oncology, upcoming appointment on Tuesday -chest CT: scarring in RUL. no underlying mass seen -head CT: negative -per nursing patient's O2 sat drops in night time -overnight pulse ox with 21 minutes of desaturation - qualifys for home noctural O2, but has not been wearing while inpatient. order placed Plan Chronic conditions: GERD- Continue pantoprazole hypothyroidism: Levothyroxine Anxiety/depression: sertraline DVT prophylaxis: SCD's Disposition: continue inpatient stay LSO brace and PT/OT eval Updated daughter at bedside 05/13 and 05/15 Admission and Anticipated Discharge Date Admission Date: May 11, 2024 Supervising Physician Co-Signing Physician Notes PA Supervision Note: I did not personally see or examine the patient today, but I verified all negro points of PREM Liao's assessment and plan with the following exceptions/add itions: None Subjective patient seen and lying in bed just prior to lunchtime. Frustrated with how long she has had this remain in the hospital. Aware that she is awaiting for her brace before she can safely perform physical therapy and Occupational Therapy. Does not want to go to rehab. No bowel movement for 5 days Review of Systems Review of Systems: All systems reviewed & are unremarkable except as noted in Subjective Physical Exam Physical Exam: General: NAD, VS as above Resp: normal respiratory effort, lungs clear to auscultation CV: RRR, no murmur, Abd: normal bowel sounds, non tender, no hepatosplenomegaly Extremities: extensive bruising over right chest/clavicle/shoulder. Mild tenderness to Palpation. able to move fingers distally Neuro: A&O x3, Results & Data Results & Data Vital Signs (Past 12 Hours) Vital Signs Temp Pulse Resp BP Pulse Ox O2 Del Method 05/15/24 07:11 36.6 C 67 15 100/61 92 Room Air 05/15/24 07:00 Room Air Diagnostic Findings CT reviewed PG Care Time/CCT Total # of Minutes Spent Total Time Spent with Patient: Total time spent is greater than 50% in coordination of care (as documented) at patient's floor/unit and/or counseling patient: Coding Level of Care Code 27031 SUB INP/OBS CARE 2/35MIN Diagnoses Closed nondisplaced fracture of right clavicle, unspecified part of clavicle, initial encounter S42.001A Clavicle location: unspecified part of clavicle Encounter type: initial encounter Fracture alignment: nondisplaced Closed fracture of fifth lumbar vertebra, unspecified fracture morphology, initial encounter S32.059A Encounter type: initial encounter Fracture morphology: unspecified fracture morphology Fracture type: closed 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 lung C34.11 Laterality: right Lung location: upper lobe of lung (1) Closed right clavicular fracture Clavicle location: unspecified part of clavicle Encounter type: initial encounter Fracture alignment: nondisplaced Qualified Code(s): S42.001A - Fracture of unspecified part of right clavicle, initial encounter for closed fracture (2) Fracture of fifth lumbar vertebra Encounter type: initial encounter Fracture morphology: unspecified fracture morphology Fracture type: closed Qualified Code(s): S32.059A - Unspecified fracture of fifth lumbar vertebra, initial encounter for closed fracture (3) Malignant neoplasm of lung Laterality: right Lung location: upper lobe of lung Qualified Code(s): C34.1 1 - Malignant neoplasm of upper lobe, right bronchus or lung
--- NOTE | 2024-05-16 13:07 | Hospitalist Progress Note ---
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 Main complaints were right shoulder pain, low back pain, confusion/memory loss. -CXR : distal right clavicular fracture - Pain control: scheduled Tylenol, as needed tramadol - Ortho consult - continue supportive care- sling for comfort, ice - Follow up in 2-3 weeks outpatient -PT/OT recommending rehab - CM following (2) Fracture of fifth lumbar vertebra: Plan: -CTAP: new linear lucencies at b/l pedicles of L5 compatible with acute fracture - orthospine consult - conservative measures - LSO brace, no lifting over 5 lbs - follow up outpatient for new imaging -plan for pain control as above (3) Malignant neoplasm of lung: Plan: -follows with oncology, upcoming appointment on Tuesday -chest CT: scarring in RUL. no underlying mass seen -head CT: negative -per nursing patient's O2 sat drops in night time -overnight pulse ox with 21 minutes of desaturation -->* done multiple days ago, will need to be repeated if patient is not going to rehab - qualify for home noctural O2, but has not been wearing while inpatient. order placed Plan Chronic conditions: GERD- Continue pantoprazole hypothyroidism: Levothyroxine Anxiety/depression: sertraline DVT prophylaxis: SCD's Disposition: continue inpatient stay determining next destination Updated daughter at bedside 05/13 and 05/15 Admission and Anticipated Discharge Date Admission Date: May 11, 2024 Supervising Physician Co-Signing Physician Notes PA Supervision Note: I did not personally see or examine the patient today, but I verified all negro points of PREM Liao's assessment and plan with the following exceptions/additions: None Subjective patient sitting up in bed eating lunch. Having trouble getting comfortable due to back pain. Is more agreeable to go to rehab today, states she does not want to but will do it if that is what she needs to do. Did not wear oxygen overnight Still no BM Review of Systems Review of Systems: All systems reviewed & are unremarkable except as noted in Subjective Physical Exam Physical Exam: General: NAD, VS as above Resp: normal respiratory effort, lungs clear to auscultation CV: RRR, no murmur, Abd: normal bowel sounds, non tender, no hepatosplenomegaly Extremities: extensive bruising over right chest/clavicle/shoulder - continue stages of healing, now with more yellow areas. Mild tenderness to Palpation. able to move fingers distally Neuro: A&O x3, Results & Data Results & Data Vital Signs (Past 12 Hours) Vital Signs Temp Pulse Resp BP Pulse Ox O2 Del Method 05/16/24 08:00 Room Air 05/16/24 07:32 36.5 C 76 18 150/77 H 97 Room Air PG Care Time/CCT Total # of Minutes Spent Total Time Spent with Patient: Total time spent is greater than 50% in coordination of care (as documented) at patient's floor/unit and/or counseling patient: Coding Level of Care Code 43654 SUB INP/OBS CARE /25MIN Diagnoses Closed nondisplaced fracture of right clavicle, unspecified part of clavicle, initial encounter S42.001A Clavicle location: unspecified part of clavicle Encounter type: initial encounter Fracture alignment: nondisplaced Closed fracture of fifth lumbar vertebra, unspecified fracture morphology, initial encounter S32.059A Encounter type: initial encounter Fracture morphology: unspecified fracture morphology Fracture type: closed 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 lung C34.11 Laterality: right Lung location: upper lobe of lung (1) Closed right clavicular fracture Clavicle location: unspecified part of clavicle Encounter type: initial encounter Fracture alignment: nondisplaced Qualified Code(s): S42.001A - Fracture of unspecified part of right clavicle, initial encounter for closed fracture (2) Fracture of fifth lumbar vertebra Encounter type: initial encounter Fracture morphology: unspecified fracture morphology Fracture type: closed Qualified Code(s): S32.059A - Unspecified fracture of fifth lumbar vertebra, initial encounter for closed fracture (3) Malignant neoplasm of lung Laterality: right Lung location: upper lobe of lung Qualified Code(s): C34.11 - Malignant neoplasm of upper lobe, right bronchus or lung
[2024-05-16] MEDS: POLYETHYLENE (MIRALAX) 17 GM PACK PO SCH (13:38)
[2024-05-17] MEDS ORDERED: bisacodyL 10 MG SUPP PR ONE (12:24)
--- NOTE | 2024-05-17 12:28 | Hospitalist Progress Note ---
Date of Service May 17, 2024 Assessment & Plan (1) Closed right clavicular fracture: Plan: Age-related osteoporotic fractures of the L4 and L5 vertebrae as well as right clavicle Patient presented to the ER on 05/11 following a fall from 05/09. Main complaints were right shoulder pain, low back pain, confusion/memory loss. -CXR : distal right clavicular fracture - Pain control: scheduled Tylenol, as needed tramadol - Ortho consult - continue supportive care- sling for comfort, ice - Follow up in 2-3 weeks outpatient -PT/OT recommending rehab - CM following - patient told me 05/17 that she is agreeable to rehab today Constipation - scheduled miralax and colace for multiple days. Will add suppository today. (2) Fracture of fifth lumbar vertebra: Plan: -CTAP: new linear lucencies at b/l pedicles of L5 compatible with acute fracture - orthospine consult - conservative measures - LSO brace, no lifting over 5 lbs - follow up outpatient for new imaging -plan for pain control as above (3) Malignant neoplasm of lung: Plan: -follows with oncology, upcoming appointment on Tuesday -chest CT: scarring in RUL. no underlying mass seen -head CT: negative -per nursing patient's O2 sat drops in night time -overnight pulse ox with 21 minutes of desaturation -->* done multiple days ago, will need to be repeated if patient is not going to rehab - qualify for home noctural O2, but has not been wearing while inpatient. order placed Plan Chronic conditions: GERD- Continue pantoprazole hypothyroidism: Levothyroxine Anxiety/depression: sertraline DVT prophylaxis: SCD's Disposition: continue inpatient stay determining next destination Updated daughter at bedside 05/13 and 05/15 Admission and Anticipated Discharge Date Admission Date: May 11, 2024 Supervising Physician Co-Signing Physician Notes PA Supervision Note: I did not personally see or examine the patient today, but I verified all negro points of PREM Liao's assessment and plan with the following exceptions/additions: None Subjective Patient sitting in bed, tells me she is agreeable to rehab, first choice [facility]. CM updated. Still has not had a bowel movement, reports she does not feel constipated. Pain is more controlled today. Review of Systems Review of Systems: All systems reviewed & are unremarkable except as noted in Subjective Physical Exam Physical Exam: General: NAD, VS as above Resp: normal respiratory effort, lungs clear to auscultation CV: RRR, no murmur, Abd: normal bowel sounds, soft but medrano feeling. Extremities: extensive bruising over right chest/clavicle/shoulder - continue stages of healing, now with more yellow areas. Shoulder pain is improving. Neuro: A&O x3, Results & Data Results & Data Vital Signs (Past 12 Hours) Vital Signs Temp Pulse Resp BP Pulse Ox O2 Del Method 05/17/24 08:12 36.6 C 69 18 150/84 H 95 Room Air 05/17/24 08:00 Room Air PG Care Time/CCT Total # of Minutes Spent Total Time Spent with Patient: Total time spent is greater than 50% in coordination of care (as documented) at patient's floor/unit and/or counseling patient: Coding Level of Care Code 96058 SUB INP/OBS CARE 11/10MIN Diagnoses Closed nondisplaced fracture of right clavicle, unspecified part of clavicle, initial encounter S42.001A Clavicle location: unspecified part of clavicle Encounter type: initial encounter Fracture alignment: nondisplaced Closed fracture of fifth lumbar vertebra, unspecified fracture morphology, initial encounter S32.059A Encounter type: initial encounter Fracture morphology: unspecified fracture morphology Fracture type: closed 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 lung C34.11 Laterality: right Lung location: upper lobe of lung (1) Closed right clavicular fracture Clavicle location: unspecified part of clavicle Encounter type: initial encounter Fracture alignment: nondisplaced Qualified Code(s): S42.001A - Fracture of unspecified part of right clavicle, initial encounter for closed fracture (2) Fracture of fifth lumbar vertebra Encounter type: initial encounter Fracture morphology: unspecified fracture morphology Fracture type: closed Qualified Code(s): S32.059A - Unspecified fracture of fifth lumbar vertebra, initial encounter for closed fracture (3) Malignant neoplasm of lung Laterality: right Lung location: upper lobe of lung Qualified Code(s): C34.11 - Malignant neoplasm of upper lobe, right bronchus or lung
[2024-05-17] MEDS: bisacodyL 10 MG SUPP PR ONE (15:25)
--- NOTE | 2024-05-18 17:44 | Hospitalist Progress Note ---
Date of Service May 18, 2024 Assessment & Plan (1) Closed right clavicular fracture: Plan: Age-related osteoporotic fractures of the L4 and L5 vertebrae as well as right clavicle Patient presented to the ER on 05/11 following a fall from 05/09. Main complaints were right shoulder pain, low back pain, confusion/memory loss. -CXR : distal right clavicular fracture - Pain control: scheduled Tylenol, as needed tramadol - Ortho consult - continue supportive care- sling for comfort, ice - Follow up in 2-3 weeks outpatient -PT/OT recommending rehab - Had [facility]. This was denied. They did however report that they would approve SNF placement. Informed case management of the conclusion from the phone call. Constipation - scheduled miralax and colace for multiple days. Suppository x1 on 05/17/24. Patient bowel movement 05/18. (2) Fracture of fifth lumbar vertebra: Plan: -CTAP: new linear lucencies at b/l pedicles of L5 compatible with acute fracture - orthospine consult - conservative measures - LSO brace, no lifting over 5 lbs - follow up outpatient for new imaging -plan for pain control as above (3) Malignant neoplasm of lung: Plan: -follows with oncology, upcoming appointment on Tuesday -chest CT: scarring in RUL. no underlying mass seen -head CT: negative -per nursing patient's O2 sat drops in night time -overnight pulse ox with 21 minutes of desaturation -->* done multiple days ago, will need to be repeated if patient is not going to rehab - qualify for home noctural O2, but has not been wearing while inpatient. order placed Plan Had peer to peer phone call with insurance company for [facility] Discussed discharge planning with case management Chronic conditions: GERD- Continue pantoprazole hypothyroidism: Levothyroxine Anxiety/depression: sertraline DVT prophylaxis: SCD's Disposition: continue inpatient stay determining next destination CODE STATUS: DNR/DNI Admission and Anticipated Discharge Date Admission Date: May 11, 2024 Subjective Patient seen and evaluated at bedside. She reports wearing her brace is uncomfortable. She does report that her pain is controlled. She had a bowel movement today. We are waiting on placement. No additional complaints or concerns at this time. I had a peer to peer phone call for placement [facility], which was denied. They did report that they would approve SNF. Physical Exam Physical Exam: General: NAD, VS as above Resp: normal respiratory effort, lungs clear to auscultation CV: RRR, no murmur, Abd: normal bowel sounds, soft but medrano feeling. Extremities: extensive bruising over right chest/clavicle/shoulder - continue stages of healing, now with more yellow areas. Shoulder pain is improving. Neuro: A&O x3, Results & Data Results & Data Vital Signs (Past 12 Hours) Vital Signs Temp Pulse Resp BP Pulse Ox O2 Del Method 05/18/24 15:18 36.9 C 63 16 98/61 L 97 Room Air 05/18/24 07:38 36.5 C 61 16 120/67 97 Room Air 05/18/24 07:30 Room Air PG Care Time/CCT Total # of Minutes Spent Total Time Spent with Patient: Total time spent is greater than 50% in coordination of care (as documented) at patient's floor/unit and/or counseling patient: Coding Level of Care Code 70336 SUB INP/OBS CARE 3/50MIN Diagnoses Closed nondisplaced fracture of right clavicle, unspecified part of clavicle, initial encounter S42.001A Clavicle location: unspecified part of clavicle Encounter type: initial encounter Fracture alignment: nondisplaced Closed fracture of fifth lumbar vertebra, unspecified fracture morphology, initial encounter S32.059A Encounter type: initial encounter Fracture morphology: unspecified fracture morphology Fracture type: closed 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 lung C34.11 Laterality: right Lung location: upper lobe of lung (1) Closed right clavicular fracture Clavicle location: unspecified part of clavicle Encounter type: initial encounter Fracture alignment: nondisplaced Qualified Code(s): S42.001A - Fracture of unspecified part of right clavicle, initial encounter for closed fracture (2) Fracture of fifth lumbar vertebra Encounter type: initial encounter Fracture morphology: unspecified fracture morphology Fracture type: closed Qualified Code(s): S32.059A - Unspecified fracture of fifth lumbar vertebra, initial encounter for closed fracture (3) Malignant neoplasm of lung Laterality: right Lung location: upper lobe of lung Qualified Code(s): C34.11 - Malignant neoplasm of upper lobe, right bronchus or lung
--- NOTE | 2024-05-19 10:43 | Hospitalist Progress Note ---
Date of Service May 19, 2024 Assessment & Plan (1) Closed right clavicular fracture: Plan: Age-related osteoporotic fractures of the L4 and L5 vertebrae as well as right clavicle Patient presented to the ER on 05/11 following a fall from 05/09. Main complaints were right shoulder pain, low back pain, confusion/memory loss. -CXR : distal right clavicular fracture - Pain control: scheduled Tylenol, as needed tramadol - Ortho consult - Continue supportive care - sling for comfort, ice - Follow up in 2-3 weeks outpatient -PT/OT recommending rehab - Had peer to peer for placement at [facility] on 05/18. This was denied. They did however report that they would approve SNF placement. Informed case management of the conclusion from the phone call. - Referrals to SNF made & pending. Constipation - scheduled miralax and colace for multiple days. Suppository x1 on 05/17/24. - Patient had bowel movement 05/18. (2) Fracture of fifth lumbar vertebra: Plan: CTAP: new linear lucencies at b/l pedicles of L5 compatible with acute fracture - Orthospine consult - conservative measures - LSO brace, no lifting over 5 lbs - follow up outpatient for new imaging - Plan for pain control as above (3) Malignant neoplasm of lung: Plan: -follows with oncology, upcoming appointment on Tuesday -chest CT: scarring in RUL. no underlying mass seen -head CT: negative -per nursing patient's O2 sat drops in night time -overnight pulse ox with 21 minutes of desaturation -->* done multiple days ago, will need to be repeated if patient is not going to rehab - qualify for home noctural O2, but has not been wearing while inpatient. order placed Plan Discussed discharge planning with case management Chronic conditions: GERD- Continue pantoprazole hypothyroidism: Levothyroxine Anxiety/depression: sertraline DVT prophylaxis: SCD's Disposition: continue inpatient stay determining next destination CODE STATUS: DNR/DNI Admission and Anticipated Discharge Date Admission Date: May 11, 2024 Supervising Physician Co-Signing Physician Notes Attending Attestation - Chart reviewed, care plan d/w PREM Maravilla. I agree w/ the negro components of her documentation. Javier Mccormick MD Subjective Patient seen evaluated bedside. She reports that her pain is better today. She does continue to note some middle/lower back discomfort. She reports that she has been ambulating to the bathroom and sitting up for meals without too much pain. She denies any urinary symptoms, abdominal pain, nausea, vomiting, shortness of breath, difficulty breathing, or chest pain. We discussed that referrals have been made to SNF, but we are waiting to hear back. Patient is understanding. No additional complaints or concerns at this time. Physical Exam Physical Exam: General: No acute distress, nondiaphoretic, well-developed, well-nourished. Extremities: Extensive bruising over right chest/clavicle/shoulder - continue stages of healing, now with more yellow areas. Shoulder pain is improving. Cardiac: Regular rate and rhythm without murmurs gallops or rubs. Pulm: Clear to auscultation bilaterally without wheezes, rales or rhonchi. No respiratory distress. 96% on room air. Abdominal: Soft, nontender, nondistended. Bowel sounds present. Neuro: A&O x3. No focal neurological deficits. Results & Data Results & Data Vital Signs (Past 12 Hours) Vital Signs Temp Pulse Resp BP Pulse Ox O2 Del Method 05/19/24 07:25 Room Air 05/19/24 07:23 36.4 C L 56 L 16 137/76 96 Room Air PG Care Time/CCT Total # of Minutes Spent Total Time Spent with Patient: Total time spent is greater than 50% in coordination of care (as documented) at patient's floor/unit and/or counseling patient: Coding Level of Care Code 36454 SUB INP/OBS CARE 2/35MIN Diagnoses Closed nondisplaced fracture of right clavicle, unspecified part of clavicle, initial encounter S42.001A Clavicle location: unspecified part of clavicle Encounter type: initial encounter Fracture alignment: nondisplaced Closed fracture of fifth lumbar vertebra, unspecified fracture morphology, initial encounter S32.059A Encounter type: initial encounter Fracture morphology: unspecified fracture morphology Fracture type: closed 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 lung C34.11 Laterality: right Lung location: upper lobe of lung (1) Closed right clavicular fracture Clavicle location: unspecified part of clavicle Encounter type: initial encounter Fracture alignment: nondisplaced Qualified Code(s): S42.001A - Fracture of unspecified part of right clavicle, initial encounter for closed fracture (2) Fracture of fifth lumbar vertebra Encounter type: initial encounter Fracture morphology: unspecified fracture morphology Fracture type: closed Qualified Code(s): S32.059A - Unspecified fracture of fifth lumbar vertebra, initial encounter for closed fracture (3) Malignant neoplasm of lung Laterality: right Lung location: upper lobe of lung Qualified Code(s): C34.11 - Malignant neoplasm of upper lobe, right bronchus or lung
[2024-05-20 10:48] LABS: Basophils # (auto) 0.05 K/uL (0.00-0.20); Basophils % (auto) 0.9 %; Eosinophils # (auto) 0.13 K/uL (0.00-0.50); Eosinophils % (auto) 2.3 %; Hematocrit (blood only) 36.6 % (37.0-47.0); Hemoglobin 12.2 g/dl (12.0-16.0); Immature Granulocytes # (auto) 0.03 K/uL (0.01-0.20); Immature Granulocytes % (auto) 0.5 %; Lymphocytes # (auto) 0.47 K/uL (1.20-3.40); Lymphocytes % (auto) 8.2 %; Mean Corpuscular Hgb Conc 33.3 g/dL (32.0-36.0); Mean Corpuscular Volume 98.9 fL (80.0-100.0); Mean Platelet Volume 8.5 fL (9.4-12.4); Monocytes % (auto) 8.7 %; Neutrophils # (auto) 4.56 K/uL (1.40-6.50); Neutrophils % (auto) 79.4 %; Platelet Count 314 K/uL (130-400); RDW Coefficient of Variation 14.8 % (11.5-14.5); RDW Standard Deviation 52.9 fL (36.4-46.3); White Blood Count 5.74 K/ul (4.8-10.8)
[2024-05-20 11:05] LABS: BUN Creatinine Ratio 21.9 (10-20); Calcium 8.9 mg/dl (8.6-10.3); Est GFR (African American) 98.4 ml/min; Est GFR (Non-African American) 84.9 ml/min; Potassium 4.2 mmol/L (3.5-5.1)
[2024-05-20 11:31] LABS: Folate (Folic Acid),Ser orPlas 12.38 ng/ml (>5.38)
[2024-05-20] MEDS: SODIUM CHLORIDE 0.9% 500 ML IV SCH (16:55)
--- NOTE | 2024-05-20 19:48 | Hospitalist Progress Note ---
Date of Service May 20, 2024 Assessment & Plan (1) Orthostatic hypotension: Plan: likely cause of today's very brief syncopal episode give 500cc NS bolus x 1 now followed by 1 L of saline overnight repeat orthos in am consider cortisol level in am she is not on anti-hypertensive meds she is not on anything else to cause orthostasis (2) Syncope: Plan: 2nd to #1 to be complete obtain echo consider cortisol level am labs (3) Closed right clavicular fracture: Plan: Age-related osteoporotic fractures of the L4 and L5 vertebrae as well as right clavicle Patient presented to the ER on 05/11 following a fall from 05/09. Main complaints were right shoulder pain, low back pain, confusion/memory loss. -CXR : distal right clavicular fracture - Pain control: scheduled Tylenol, as needed tramadol - Ortho consult - Continue supportive care - sling for comfort, ice - Follow up in 2-3 weeks outpatient -PT/OT advising rehab - Had peer to peer for placement at [facility] on 05/18. This was denied. They did however report that they would approve SNF placement. Informed case m anagement of the conclusion from the phone call. - Referrals to SNF pending. replace low vitamin D fix orthostasis which I presume contributed or caused the fall (4) Fracture of fifth lumbar vertebra: Plan: imaging with lucencies at b/l pedicles of L5 compatible with acute fracture Ortho-spine consult appreciated Advised: - conservative measures - LSO brace, no lifting over 5 lbs - follow up outpatient for new imaging - Plan for pain control as above Replace low vitamin D level (5) Malignant neoplasm of lung: Plan: [facility]oncology RUL squamous cell lung ca never had surgery or chemo - XRT only chest CT this admission - scarring in RUL. no underlying mass seen head CT negative for obvious mets if confusion persists consider MRI brain to r/o metastatic disease (6) Hypothyroidism: Plan: TSH wnl cont synthroid (7) Vitamin D deficiency: Plan: 25-Oh vit D level - 24 start vit D 2000 IU daily (8) Underweight: Plan: BMI 17 was roughly the same weight about the same time in 2022 add MVI boost Plan Chronic conditions: GERD- Continue pantoprazole Anxiety/depression- sertraline DVT prophylaxis: add heparin 5000 BID CODE STATUS: DNR/DNI Dispo: SNF - referrals pending update family tomorrow Admission and Anticipated Discharge Date Admission Date: May 11, 2024 Subjective by report patient had a very brief - seconds - of passing out when she stood up with any attempt at standing she has immediate dizziness & lightheadedness these symptoms resolve in the recumbant position she is a very poor historian during my visit asks if she is leaving to go home seemed confused and mildly agitated during my visit Review of Systems Review of Systems: cv - no chest pain pulm - she said "you know I have lung cancer?"; denies dyspnea at rest; some cough GI - no abd pain; + stools; no vomiting Physical Exam Physical Exam: gen - very thin, underweight, malnourished appearing; NAD mouth - MM dry neck - no JVD heart - RRR, s1 s2 lungs - CTA b/l, no wheeze, no rales abd - soft NT ND BS+ ext - no edema, pulses 2+ b/l neuro - nonfocal, motor 5/5 x 4 exts skin - extensive ecchymoses over right shoulder, right upper chest, right clavicle region Results & Data Results & Data Vital Signs (Past 12 Hours) Vital Signs Temp Pulse Resp BP Pulse Ox O2 Del Method 05/20/24 15:10 36.0 C L 64 20 100/60 96 Room Air Laboratory Results Laboratory Results 05/20/24 10:36 WBC 5.74 RBC 3.70 L Hgb 12.2 Hct 36.6 L MCV 98.9 MCH 33.0 MCHC 33.3 RDW Std Deviation 52.9 H RDW Coeff of Maritza 14.8 H Plt Count 314 MPV 8.5 L Immature Gran % (Auto) 0.5 Neut % (Auto) 79.4 Lymph % (Auto) 8.2 [place] % (Auto) 8.7 Eos % (Auto) 2.3 Baso % (Auto) 0.9 Neut # (Auto) 4.56 Lymph # (Auto) 0.47 L [place] # (Auto) 0.50 Eos # (Auto) 0.13 Baso # (Auto) 0.05 Immature Gran # (Auto) 0.03 Sodium 135 L Potassium 4.2 Chloride 104 Carbon Dioxide 26 Anion Gap 5 BUN 14 Creatinine 0.64 Est Cr Clr Drug Dosing 45.0 Est GFR ( Amer) 98.4 Est GFR (Non-Af Amer) 84.9 BUN/Creatinine Ratio 21.9 H Glucose 97 Calcium 8.9 Vitamin B12 550 25-OH Vitamin D Total 24.4 L Folate 12.38 PG Care Time/CCT Total # of Minutes Spent Total Time Spent with Patient: Total time spent is greater than 50% in coordination of care (as documented) at patient's floor/unit and/or counseling patient: Coding Level of Care Code 64410 SUB INP/OBS CARE 3/50MIN Diagnoses Orthostatic hypotension I95.1 Syncope R55 Closed nondisplaced fracture of right clavicle, unspecified part of clavicle, initial encounter S42.001A Encounter type: initial encounter Clavicle location: unspecified part of clavicle Fracture alignment: nondisplaced Closed fracture of fifth lumbar vertebra, unspecified fracture morphology, initial encounter S32.059A Encounter type: initial encounter Fracture type: closed Fracture morphology: unspecified fracture morphology 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 lung C34.11 Laterality: right Lung location: upper lobe of lung Hypothyroidism E03.9 Vitamin D deficiency E55.9 Underweight R63.6 (3) Closed right clavicular fracture Encounter type: initial encounter Clavicle location: unspecified part of clavicle Fracture alignment: nondisplaced Qualified Code(s): S42.001A - Fracture of unspecified part of right clavicle, initial encounter for closed fracture (4) Fracture of fifth lumbar vertebra Encounter type: initial encounter Fracture type: closed Fracture morphology: unspecified fracture morphology Qualified Code(s): S32.059A - Unspecified fracture of fifth lumbar vertebra, initial encounter for closed fracture (5) Malignant neoplasm of lung Laterality: right Lung location: upper lobe of lung Qualified Code(s): C34.11 - Malignant neoplasm of upper lobe, right bronchus or lung
[2024-05-20] MEDS: SODIUM CHLORIDE 0.9% 1,000 ML IV SCH (20:27)
[2024-05-21 08:37] LABS: Calcium 8.6 mg/dl (8.6-10.3); Potassium 3.7 mmol/L (3.5-5.1)
[2024-05-21 08:42] LABS: BUN Creatinine Ratio 19.7 (10-20); Creatinine Clr Calc Pharmacy 47.8 ml/min; Est GFR (African American) 99.9 ml/min; Est GFR (Non-African American) 86.2 ml/min
[2024-05-21] MEDS: SODIUM CHLORIDE 0.9% 500 ML IV ONE (09:29)
[2024-05-21] MEDS: MIDODRINE HCL 2.5 MG TAB PO SCH (11:18)
[2024-05-21] MEDS: CHOLECALCIFEROL 25 MCG (1000 UNITS) TAB PO SCH (11:18)
--- NOTE | 2024-05-21 15:19 | XCELERA ---
[id number]
--- NOTE | 2024-05-21 19:58 | Hospitalist Progress Note ---
Date of Service May 21, 2024 Assessment & Plan (1) Orthostatic hypotension: Plan: SEVERE 50-60+ point drops with standing likely cause chronic dizziness (there are office notes mentioning the dizziness in 2022) very likely contributed or caused her recent fall at home would not be surprised if she had syncope due to the severity of the orthostasis checked cortisol level this am -- >20 gave 500cc NS bolus last pm followed by 1 L of saline overnight despite such still very orthostatic this am ordered 2nd 500cc NS bolus THIS morning also added midodrine 2.5mg TID she is not on anti-hypertensive meds she is not on anything else to cause orthostasis echo obtained to rule out structural heart disease causing her issue - normal LV/RV function; IVC dilated -- etiology??? could she have PEs ? check orthostatics tonight and if still + then will increase midodrine further to 5mg TID (2) Syncope: Plan: 2nd to #1 cortisol level wnl echo with preserved LV/RV function & normal valve function MRI brain ordered due to lung cancer history - r/o intra-cranial mets (3) Closed right clavicular fracture: Plan: Age-related osteoporotic fractures of the L4 and L5 vertebrae as well as right clavicle Patient presented to the ER on 05/11 following a fall from 05/09. Main complaints were right shoulder pain, low back pain, confusion/memory loss. -CXR : distal right clavicular fracture - Pain control: scheduled Tylenol - change to 1gm TID scheduled to avoid nocturnal administration; prn tramadol; add celebrex 200mg daily - Ortho consult - Continue supportive care - sling for comfort, ice - Follow up in 2-3 weeks outpatient -PT/OT advising rehab - Had peer to peer for placement at [facility] on 05/18. This was denied. They did however report that they would approve [facility] placement. Informed case management of the conclusion from the phone call. - Referrals to [facility] pending. replace low vitamin D fix the orthostasis which I presume contributed or caused the fall (4) Fracture of fifth lumbar vertebra: Plan: imaging with lucencies at b/l pedicles of L5 compatible with acute fracture Ortho-spine consult appreciated Advised: - conservative measures - LSO brace, no lifting over 5 lbs - follow up outpatient for new imaging - Plan for pain control as above + add lidoderm patches qam Replace low vitamin D level (5) Malignant neoplasm of lung: Plan: [facility]oncology [facility] squamous cell lung ca never had surgery or chemo - XRT only chest CT this admission - scarring in RUL. no underlying mass seen head CT negative for obvious mets CT abd/pelvis without metastatic disease she is 10 days out from admission & still confused --> check MRI brain w/ and w/o contrast - r/o mets, r/o subacute CVA (6) Hypothyroidism: Plan: TSH wnl cont synthroid (7) Vitamin D deficiency: Plan: 25-Oh vit D level - 24 start vit D 2000 IU daily (8) Underweight: Plan: BMI 17 was roughly the same weight about the same time in 2022 add MVI boost (9) Acute encephalopathy: Plan: I spoke with pt's daughter by phone today she reports her mother has been confused since the time of the fall the fall was unwitnessed so she could have easily hit her head leading to a concussion & confusion confusion could be toxic in nature from tramadol can't rule out subacute CVA can't rule out metastatic disease plan - MRI brain w/ and w/o contrast re-eval tomorrow check B1 level to be complete given her malnourishment and poor intake (10) Abnormal echocardiogram: Plan: IVC dilatation as seen on echo today etiology? no signs of decompensated CHF (opposite - was volume contracted last 48 hours) could she have had a submassive PE which can cause the IVC to dilate? doubt, would likely have low O2 sats and more respiratory symptoms - but can't rule it out completely check a dimer with AM labs tomorrow & if elevated then obtain CTA chest Plan Chronic conditions: GERD- Continue pantoprazole Anxiety/depression- sertraline DVT prophylaxis: heparin 5000 BID CODE STATUS: DNR/DNI Dispo: SNF - referrals pending updated pt's daughter extensively by phone this evening Admission and Anticipated Discharge Date Admission Date: May 11, 2024 Subjective patient still very dizzy/lightheaded with standing today +orthostatics this am and again later in the day despite IV fluids & institution of midodrine today patient was mildly confused during the visit she did remember she "needed rehab before going home - which is bull----" she said continues with pain over her low back continues with pain over her right lower costal margin last BM 8/4/24 eating poorly Review of Systems Review of Systems: CV - no central cp; no orthopnea pulm - no dyspnea at rest GI - no abd pain or N/V Physical Exam Physical Exam: gen - very thin, underweight, malnourished appearing; shifting in bed due to pain mouth - MM more moist today neck - no JVD heart - RRR, s1 s2, no murmur lungs - CTA b/l, no wheeze, no rales; I don't hear any adventitious sounds in the RUL abd - soft NT ND BS+ ext - no edema, pulses 2+ b/l skin - extensive ecchymoses over right shoulder, right upper chest, right clavicle region psych - oriented to person & place but mild confusion & agitation vascular - radial pulses 2+ b/l and symmetric Results & Data Results & Data Vital Signs (Past 12 Hours) Vital Signs Temp Pulse Resp BP Pulse Ox O2 Del Method 05/21/24 14:11 36.8 C 63 18 113/70 96 Room Air Laboratory Results Laboratory Results - last 24 hr 05/21/24 07:56 Sodium 139 Potassium 3.7 Chloride 108 H Carbon Dioxide 27 Anion Gap 4 BUN 12 Creatinine 0.61 Est Cr Clr Drug Dosing 47.8 Est GFR ( Amer) 99.9 Est GFR (Non-Af Amer) 86.2 BUN/Creatinine Ratio 19.7 Glucose 96 Calcium 8.6 Random Cortisol 23.11 PG Care Time/CCT Total # of Minutes Spent Total Time Spent with Patient: Total time spent is greater than 50% in coordination of care (as documented) at patient's floor/unit and/or counseling patient: Coding Level of Care Code 87776 SUB INP/OBS CARE 3/50MIN Diagnoses Orthostatic hypotension I95.1 Syncope R55 Closed nondisplaced fracture of right clavicle, unspecified part of clavicle, initial encounter S42.001A Clavicle location: unspecified part of clavicle Encounter type: initial encounter Fracture alignment: nondisplaced Closed fracture of fifth lumbar vertebra, unspecified fracture morphology, initial encounter S32.059A Encounter type: initial encounter Fracture morphology: unspecified fracture morphology Fracture type: closed 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 lung C34.11 Laterality: right Lung location: upper lobe of lung Hypothyroidism E03.9 Vitamin D deficiency E55.9 Underweight R63.6 Acute encephalopathy G93.40 Abnormal echocardiogram R93.1 (3) Closed right clavicular fracture Clavicle location: unspecified part of clavicle Encounter type: initial encounter Fracture alignment: nondisplaced Qualified Code(s): S42.001A - Fracture of unspecified part of right clavicle, initial encounter for closed fracture (4) Fracture of fifth lumbar vertebra Encounter type: initial encounter Fracture morphology: unspecified fracture morphology Fracture type: closed Qualified Code(s): S32.059A - Unspecified fracture of fifth lumbar vertebra, initial encounter for closed fracture (5) Malignant neoplasm of lung Laterality: right Lung location: upper lobe of lung Qualified Code(s): C34.11 - Malignant neoplasm of upper lobe, right bronchus or lung
[2024-05-21] MEDS: HEPARIN SOD 5,000 UNIT/0.5 ML VIAL SQ SCH (21:30)
[2024-05-22] MEDS: GADOBUTROL 65ML VIAL IV ONE (00:39)
--- NOTE | 2024-05-22 02:45 | Magnetic Resonance Report ---
Exam(s): MRI HEAD W/WO Contrast IV Amt: 4cc gadavist EXAM: MR Head Without and With Intravenous Contrast CLINICAL HISTORY: Reason for exam: h/o lung ca, altered MS, mets?. TECHNIQUE: Magnetic resonance images of the head/brain without and with intravenous contrast in multiple planes. Mild motion artifact. CONTRAST: Patient received 4cc gadavist of IV contrast COMPARISON: Head CT 05/11/24 and MRI brain 08/16/23. FINDINGS: Brain: No mass effect or acute infarct. No acute hemorrhage. Moderate atrophy and chronic white matter disease, stable. No abnormal enhancement or mass. Ventricles: No hydrocephalus or midline shift. Bones/joints: No acute finding. Soft tissues: No scalp hematoma. Visualized Sinuses: Clear. Mastoid air cells: No mastoid effusion. IMPRESSION: 1. Stable age-related findings. 2. No abnormal enhancement, acute infarct, bleed, or acute intracranial abnormality. Electronically signed by: Jess Peterson M.D. 05/22/24 02:43 AM
[2024-05-22] MEDS: ACETAMINOPHEN 500 MG TAB PO SCH (07:22)
[2024-05-22] MEDS: MIDODRINE HCL 2.5 MG TAB PO SCH (07:22)
[2024-05-22] MEDS: CeleBREX 200 MG CAP PO SCH (07:23)
[2024-05-22] MEDS: LIDOCAINE 5% 1 PATCH TD SCH (07:24)
[2024-05-22] MEDS: CEROVITE ADV FORMULA TAB PO SCH (07:45)
--- NOTE | 2024-05-22 08:00 | Hospitalist Progress Note ---
Date of Service May 22, 2024 Assessment & Plan (1) Orthostatic hypotension: Plan: SEVERE 50-60+ point drops with standing likely cause chronic dizziness (there are office notes mentioning the dizziness in 2022) very likely contributed or caused her recent fall at home would not be surprised if she had syncope due to the severity of the orthostasis checked cortisol level this am -- >20 gave 500cc NS bolus last pm followed by 1 L of saline overnight despite such still very orthostatic this am ordered 2nd 500cc NS bolus THIS morning - 05/21. also added midodrine 2.5mg TID she is not on anti-hypertensive meds. she is not on anything else to cause orthostasis echo obtained to rule out structural heart disease causing her issue - normal LV/RV function; IVC dilated -- etiology??? could she have PEs ? checked orthostatics PM 05/21 and still positive 05/22 Midodrine increased to 5mg TID starting AM 05/22 and will monitor today/repeat orthostatics following given prior to administration 138/72, 96/59, 67/35 No further IVF for now, BP 138/72- continue midodrine increased dose/monitor for further increase if needed MRI Brain NEGATIVE B1 level pending for labs today, start PO replacement 100mg BID for now/increase if needed if deficient ddimer pending given dilated IVC on ECHO-->On Heparin SQ, but appears added 05/21 CTA chest ordered for completeness, NEGATIVE for PE. Continue Heparin SQ for DVT prophylaxis Repeat UA as able given suprapubic discomfort but had +BS on exam and unknown last BM. Bowel regimen continued --LARGE BM THIS MORNING PT/OT evals to be undertaken w/ improvement in BPs -- CM to follow. Likely need for rehab for her L4/L5 vertebral fractures as well as R clavicle fracture (2) Syncope: Plan: 2nd to #1 cortisol level wnl NO DEFICIENT echo with preserved LV/RV function & normal valve function MRI brain ordered due to lung cancer history - r/o intra-cranial mets --> NEGATIVE (3) Closed right clavicular fracture: Plan: Age-related osteoporotic fractures of the L4 and L5 vertebrae as well as right clavicle Patient presented to the ER on 05/11 following a fall from 05/09. Main complaints were right shoulder pain, low back pain, confusion/memory loss. Xray w/ distal RIGHT clavicular fracture Pain control: scheduled Tylenol - change to 1gm TID scheduled to avoid nocturnal administration; prn tramadol; added celebrex 200mg daily. Is on PPI once daily, consider increasing to BID if needed Ortho consult - Continue supportive care - sling for comfort, ice - Follow up in 2-3 weeks outpatient PT/OT advising rehab- Had peer to peer for placement at [facility] on 05/18. This was denied. They did however report that they would approve SNF placement. Informed case management of the conclusion from the phone call. Referrals to SNF pending. replace low vitamin D fix the orthostasis which I presume contributed or caused the fall - see above (4) Fracture of fifth lumbar vertebra: Plan: imaging with lucencies at b/l pedicles of L5 compatible with acute fracture Ortho-spine consult appreciated Advised conservative measures - LSO brace, no lifting over 5 lbs . Follow up outpatient for new imaging Plan for pain control as above + add lidoderm patches qam Replace low vitamin D level (5) Malignant neoplasm of lung: Plan: [facility]oncology [facility] squamous cell lung ca never had surgery or chemo - XRT only chest CT this admission - scarring in RUL. no underlying mass seen head CT negative for obvious mets CT abd/pelvis without metastatic disease. MRI BRAIN NEGATIVE as obtained given 10 days from admission/confused to r/o mets/subacute CVA MRI BRAIN NEGATIVE, age related changes. No abnormal enhancement, acute infarct, bleed, or acute intracranial abnormality. CTA neg for PE as above (6) Hypothyroidism: Plan: TSH wnl cont synthroid (7) Vitamin D deficiency: Plan: 25-Oh vit D level - 24 start vit D 2000 IU daily (8) Underweight: Plan: BMI 17 was roughly the same weight about the same time in 2022 add MVI , boost supplements continued (9) Acute encephalopathy: Plan: Metabolic encephalopathy Prior spoke with pt's daughter by phone 05/21 -she reported her mother has been confused since the time of the fall the fall was unwitnessed so she could have easily hit her head leading to a concussion & confusion confusion could be toxic in nature from tramadol (seems less confused today and has NOT required any tramadol) can't rule out subacute CVA or metastatic disease planed MRI brain w/ and w/o contrast -- age related changes, no acute CVA or metastatic disease noted Appears improved, did have large BM this morning as well Repeat UA as above B1 level sent/starting PO replacement empirically. (10) Abnormal echocardiogram: Plan: IVC dilatation as seen on echo today etiology? no signs of decompensated CHF (opposite - was volume contracted last 48 hours) could she have had a submassive PE which can cause the IVC to dilate? doubt, would likely have low O2 sats and more respiratory symptoms - but can't rule it out completely Ddimer elevation 3300, CTA chest for completeness which was NEGATIVE for PE Plan Chronic conditions: GERD- Continue pantoprazole Anxiety/depression- sertraline DVT prophylaxis: heparin 5000 BID CODE STATUS: DNR/DNI Dispo: SNF - referrals pending therapy evals repeat w/ improvement in BPs updated pt's daughter extensively by phone evening 05/21 and will plan to update in AM or sooner if needed Admission and Anticipated Discharge Date Admission Date: May 11, 2024 Supervising Physician Co-Signing Physician Notes The patient was not seen by me. The chart was reviewed. Case discussed with PREM Burrell. Agree with assessment and plan Subjective EVal this morning, resting in bed. Orthostatics positive but denies dizziness. Midodrine increased and monitoring repeat VS/exam. Does have some suprapubic discomfort this morning/needing to urinate. Nursing to assist. Denies moving her bowels recently but decent appetite/passing gas and +BS on exam and will monitor. Denies CP or SOB at present but discussed lab testing Ddimer and CTA chest for eval to rule out blood clot. MRI brain negative. No fever/chills, awaiting rehab. Questions/concerns addressed at this time. Physical Exam Physical Exam: gen - very thin, underweight, malnourished appearing; shifting in bed due to pain /needing to urinate mouth - MM MORE moist today neck - no JVD heart - RRR, s1 s2, no murmur lungs - CTA b/l, no wheeze, no rales; I don't hear any adventitious sounds in the RUL , on room air abd - soft NT ND BS+, slight suprapubic discomfort ext - no edema, pulses 2+ b/l skin - extensive ecchymoses over right shoulder, right upper chest, right clavicle region psych - oriented to person & place , mild agitation at times vascular - radial pulses 2+ b/l and symmetric Results & Data Results & Data Vital Signs (Past 12 Hours) Vital Signs Temp Pulse Resp BP Pulse Ox O2 Del Method 05/22/24 07:30 36.3 C L 60 16 138/72 96 Room Air 05/21/24 21:51 36.6 C 17 96 Room Air 05/21/24 20:00 Room Air Laboratory Results 05/22/24 Range/Units 06:54 D-Dimer 3430 H* (0-500) ug/L FEU Vitamin B1 Pending Diagnostic Findings Brain MRI 05/22/24 00:01 Exam(s): MRI HEAD W/WO Contrast IV Amt: 4cc gadavist EXAM: MR Head Without and With Intravenous Contrast CLINICAL HISTORY: Reason for exam: h/o lung ca, altered MS, mets?. TECHNIQUE: Magnetic resonance images of the head/brain without and with intravenous contrast in multiple planes. Mild motion artifact. CONTRAST: Patient received 4cc gadavist of IV contrast COMPARISON: Head CT 05/11/24 and MRI brain 08/16/23. FINDINGS: Brain: No mass effect or acute infarct. No acute hemorrhage. Moderate atrophy and chronic white matter disease, stable. No abnormal enhancement or mass. Ventricles: No hydrocephalus or midline shift. Bones/joints: No acute finding. Soft tissues: No scalp hematoma. Visualized Sinuses: Clear. Mastoid air cells: No mastoid effusion. IMPRESSION: 1. Stable age-related findings. 2. No abnormal enhancement, acute infarct, bleed, or acute intracranial abnormality. Electronically signed by: Jess Peterson M.D. 05/22/24 02:43 AM Chest CTA 05/22/24 08:59 CT angio chest PE protocol CLINICAL HISTORY: PE TECHNIQUE: Multidetector row helical CT of the chest was performed with angiographic protocol. Coronal and sagittal reformations were obtained. Coronal and sagittal MIPS were obtained from the axial data set and were submitted for review. Automated dose lowering techniques and/or adjustment according to patient size were utilized for this exam. CT DOSE: 238.82 mGy.cm Comparison: Comparison is made to CT chest 05/11/2024 FINDINGS: Lungs and pleura: Diffuse centrilobular emphysema is seen most prominent in the upper lobes. Scarring is seen in the right upper lobe. Heart and pericardium: Heart size is normal. No pericardial effusion. Vessels: No evidence of pulmonary embolism. Mediastinum and nica: Unremarkable. Chest wall and lower neck: Unremarkable. Abdomen: Unremarkable. Bones: Degenerative changes in the thoracic spine. IMPRESSION: 1. No acute abnormality and in particular no evidence of pulmonary embolus. 2. Emphysema. ACT 112: Negative or not required by law. Electronically signed by: Francisco Lewis M.D. 05/22/2024 10:52 AM PG Care Time/CCT Total # of Minutes Spent Total Time Spent with Patient: Total time spent is greater than 50% in coordination of care (as documented) at patient's floor/unit and/or counseling patient: Coding Level of Care Code 09506 SUB INP/OBS CARE 3/50MIN Diagnoses Orthostatic hypotension I95.1 Syncope R55 Closed nondisplaced fracture of right clavicle, unspecified part of clavicle, initial encounter S42.001A Clavicle location: unspecified part of clavicle Encounter type: initial encounter Fracture alignment: nondisplaced Closed fracture of fifth lumbar vertebra, unspecified fracture morphology, initial encounter S32.059A Encounter type: initial encounter Fracture morphology: unspecified fracture morphology Fracture type: closed 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 lung C34.11 Laterality: right Lung location: upper lobe of lung Hypothyroidism E03.9 Vitamin D deficiency E55.9 Underweight R63.6 Acute encephalopathy G93.40 Abnormal echocardiogram R93.1 (3) Closed right clavicular fracture Clavicle location: unspecified part of clavicle Encounter type: initial encounter Fracture alignment: nondisplaced Qualified Code(s): S42.001A - Fracture of unspecified part of right clavicle, initial encounter for closed fracture (4) Fracture of fifth lumbar vertebra Encounter type: initial encounter Fracture morphology: unspecified fracture morphology Fracture type: closed Qualified Code(s): S32.059A - Unspecified fracture of fifth lumbar vertebra, initial encounter for closed fracture (5) Malignant neoplasm of lung Laterality: right Lung location: upper lobe of lung Qualified Code(s): C34.11 - Malignant neoplasm of upper lobe, right bronchus or lung
[2024-05-22 08:49] LABS: D Dimer 3430 ug/L FEU (0-500)
[2024-05-22] MEDS: OPTIRAY 320 125ml IV ONE (10:28)
--- NOTE | 2024-05-22 10:54 | CT Scan Report ---
CT angio chest PE protocol CLINICAL HISTORY: PE TECHNIQUE: Multidetector row helical CT of the chest was performed with angiographic protocol. Cruz l and sagittal reformations were obtained. Coronal and sagittal MIPS were obtained from the axial corbin a set and were submitted for review. Automated dose lowering techniques and/or adjustment according to patient size were utilized for this exam. CT DOSE: 238.82 mGy.cm Comparison: Comparison is made to CT chest 05/11/2024 FINDINGS: Lungs and pleura: Diffuse centrilobular emphysema is seen most prominent in the upper lobes. Scarring is seen in the right upper lobe. Heart and pericardium: Heart size is normal. No pericardial effusion. Vessels: No evidence of pulmonary embolism. Mediastinum and nica: Unremarkable. Chest wall and lower neck: Unremarkable. Abdomen: Unremarkable. Bones: Degenerative changes in the thoracic spine. IMPRESSION: 1. No acute abnormality and in particular no evidence of pulmonary embolus. 2. Emphysema. ACT 112: Negative or not required by law. Electronically signed by: Francisco Lewis M.D. 05/22/2024 10:52 AM
[2024-05-22 14:12] LABS: Appearance Urine Clear (Clear); Bacteria Urine Automated 1+ (None Seen); Bilirubin Urine Negative (Negative); Blood Urine Negative (Negative); Cast Urine Automated 0-2 /lpf (0-2); Color Urine Yellow; Epithelial Cell Urine Auto 0-2 /hpf (0-2); Glucose Urine UA Negative (Negative); Ketones Urine Negative (Negative); Leukocyte Esterase Urine Negative (Negative); Nitrite Urine Negative (Negative); Protein Urine 1+ (Negative); Specific Gravity Urine > 1.045 (1.000-1.030); Urobilinogen Urine Negative (Negative); WBC Urine Automated 0-5 /hpf (0-5); pH Urine 6.5 (4.5-7.5)
[2024-05-22] MEDS: THIAMINE HCL 100 MG TAB PO SCH (22:12)
[2024-05-23 07:24] LABS: BUN Creatinine Ratio 16.4 (10-20); Calcium 9.1 mg/dl (8.6-10.3); Creatinine Clr Calc Pharmacy 42.6 ml/min; Est GFR (African American) 96.9 ml/min; Est GFR (Non-African American) 83.6 ml/min; Magnesium 2.2 mg/dl (1.7-2.4)
[2024-05-23] MEDS: CIPROFLOXACIN 250 MG TAB PO SCH (10:22)
--- NOTE | 2024-05-23 12:05 | XRay Report ---
RIGHT CLAVICLE 2 VIEWS CLINICAL HISTORY: Follow-up clavicular fracture. FINDINGS: 2 views of the right clavicle are correlated with radiographs of the right shoulder dated . The skeletal structures are osteopenic. Again seen is a comminuted fracture of the distal r ight clavicle with displaced fragments. The largest fragments are offset by up to 5 mm. Overlying sof t tissue edema persists. The sternoclavicular and acromioclavicular joints appear maintained. Arthrit ic change is seen at the shoulder joint. The visualized right apical lung parenchyma appears clear. IMPRESSION: Unchanged alignment of a distal right clavicular fracture as compared to previous. Electronically signed by: Sharath Scott M.D. 05/23/2024 12:04 PM
--- NOTE | 2024-05-23 13:03 | Hospitalist Progress Note ---
Date of Service May 23, 2024 Assessment & Plan (1) Orthostatic hypotension: Plan: Appears to have improved with addition of midodrine. Continue orthostatic measurements. Supportive care. (2) Syncope: Plan: Due to orthostasis. Now resolved. Serum cortisol level unremarkable. Cardiac echo report unremarkable. Brain MRI scan unremarkable for age. (3) Closed right clavicular fracture: Plan: Age related closed right clavicular fracture along with L4 and L5 vertebral fractures. Supportive care. Pain control measures. Orthopedic consultation appreciated. Nonoperative treatment at this time. Follow-up as an outpatient in 2 to 3 weeks. Continue PT and OT. (4) Fracture of fifth lumbar vertebra: Plan: Pain control measures. Supportive care. Appreciate orthopedic spine consultation and recommendations (5) Malignant neoplasm of lung: Plan: [facility]. 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 Current chest CT scan noted. Head CT scan negative for metastatic disease. Brain MRI scan also negative for metastatic disease. (6) Hypothyroidism: Plan: Stable. Continue current Synthroid replacement therapy (7) Vitamin D deficiency: Plan: Now on oral vitamin D replacement therapy (8) Acute encephalopathy: Plan: Metabolic encephalopathy present on admission. Now resolved. Plan Awaiting SNF placement Admission and Anticipated Discharge Date Admission Date: May 11, 2024 Subjective Alert and oriented. Urine culture is growing gram-negative bacilli. She is now on oral Cipro. Antibiotic may need adjusted according to final identification and sensitivities which are pending. She is on room air. Blood pressure has stabilized with addition of midodrine. Awaiting SNF placement Review of Systems 2 Review of Systems: Constitutional-no fever or chills ENT-no blurred vision, no double vision, no epistaxis, no sore throat Respiratory-no cough, no wheezing, no shortness of breath Cardiac-no palpitations, no chest pain, no syncope GI-no nausea, vomiting, diarrhea, melena, hematochezia -no urinary retention, no urinary incontinence, no hematuria. She has noticed some frequency and dysuria Musculoskeletal-no joint pain, no muscle tenderness Skin-no bruising, no rashes, no pruritus Neuro-no isolated weakness, no paresthesia, no weakness Psych-no depression, no anxiety Physical Exam 2 Physical Exam: General-alert and oriented x3, no fever, no chills HEENT-head atraumatic and normocephalic, pupils equal and reactive to light, extraocular muscles intact Neck-no lymphadenopathy or thyromegaly, trachea midline Chest-clear to auscultation. No rales, wheezing or rhonchi Cardiac-regular rate and rhythm, normal S1 and S2 Abdomen-normal bowel sounds, no hepatosplenomegaly Extremities-no cyanosis, clubbing, or edema Neuro-cranial nerves II through XII intact, motor and sensory function within normal limits, strength symmetrical, no focal deficits Psych-normal affect, normal mood Results & Data Results & Data Vital Signs (Past 12 Hours) Vital Signs Temp Pulse Resp BP Pulse Ox O2 Del Method 05/23/24 08:00 Room Air 05/23/24 07:06 36.4 C 58 L 14 131/78 97 Room Air Laboratory Results 05/20/24 10:36 05/23/24 06:45 PG Care Time/CCT Total # of Minutes Spent Total Time Spent with Patient: Total time spent is greater than 50% in coordination of care (as documented) at patient's floor/unit and/or counseling patient: Coding Level of Care Code 91030 SUB INP/OBS CARE 3/50MIN Diagnoses Orthostatic hypotension I95.1 Syncope R55 Closed nondisplaced fracture of right clavicle, unspecified part of clavicle, initial encounter S42.001A Encounter type: initial encounter Clavicle location: unspecified part of clavicle Fracture alignment: nondisplaced Closed fracture of fifth lumbar vertebra, unspecified fracture morphology, initial encounter S32.059A Encounter type: initial encounter Fracture type: closed Fracture morphology: unspecified fracture morphology 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 lung C34.11 Laterality: right Lung location: upper lobe of lung Hypothyroidism E03.9 Vitamin D deficiency E55.9 Acute encephalopathy G93.40 (3) Closed right clavicular fracture Encounter type: initial encounter Clavicle location: unspecified part of clavicle Fracture alignment: nondisplaced Qualified Code(s): S42.001A - Fracture of unspecified part of right clavicle, initial encounter for closed fracture (4) Fracture of fifth lumbar vertebra Encounter type: initial encounter Fracture type: closed Fracture morphology: unspecified fracture morphology Qualified Code(s): S32.059A - Unspecified fracture of fifth lumbar vertebra, initial encounter for closed fracture (5) Malignant neoplasm of lung Laterality: right Lung location: upper lobe of lung Qualified Code(s): C 34.11 - Malignant neoplasm of upper lobe, right bronchus or lung
--- NOTE | 2024-05-23 13:06 | Orthopedic Progress Note ---
Date of Service May 23, 2024 Assessment & Plan (1) Closed right clavicular fracture: Plan: She is now 10 days from her right clavicle fracture. We we will get an x-ray of her right clavicle to assess alignment of the fracture. If acceptable we will discuss with her tomorrow and plan for change to her follow-up appointment. We will see her as an outpatient. She can continue to use sling for comfort. Range of motion as tolerated for the right shoulder. No heavy pushing, pulling or lifting. May use a walker to assist with ambulation as needed. Ice to the shoulder as needed for pain. Follow-up as scheduled as an outpatient. Admission and Anticipated Discharge Date Admission Date: May 11, 2024 Subjective Patient resting in bed. Currently getting orthostatics checked due to having orthostatic hypotension and physical therapy. No complaints of pain of her right shoulder At rest. Physical Exam Musculoskeletal: No significant edema of the right shoulder. Mild tenderness with palpation of the clavicle. Full elbow wrist range of motion. Tolerates gentle passive internal and external rotation of the right shoulder. No edema. No ecchymosis. Skin is intact and healthy. Results & Data Vital Signs (Past 12 Hours) Vital Signs Temp Pulse Resp BP Pulse Ox O2 Del Method 05/23/24 08:00 Room Air 05/23/24 07:06 36.4 C 58 L 14 131/78 97 Room Air (1) Closed right clavicular fracture Encounter type: initial encounter Clavicle location: unspecified part of clavicle Fracture alignment: nondisplaced Qualified Code(s): S42.001A - Fracture of unspecified part of right clavicle, initial encounter for closed fracture
--- NOTE | 2024-05-24 11:44 | Hospitalist Progress Note ---
Date of Service May 24, 2024 Assessment & Plan (1) Orthostatic hypotension: Plan: Appears to have resolved with addition of midodrine. Continue orthostatic measurements. Supportive care. (2) Syncope: Plan: Due to orthostasis. Now resolved. Serum cortisol level unremarkable. Cardiac echo report unremarkable. Brain MRI scan unremarkable for age. (3) Closed right clavicular fracture: Plan: Age related closed right clavicular fracture along with L4 and L5 vertebral fractures. Supportive care. Pain control measures. Orthopedic consultation appreciated. Nonoperative treatment at this time. Follow-up as an outpatient in 2 to 3 weeks. Continue PT and OT. (4) Fracture of fifth lumbar vertebra: Plan: Pain control measures. Supportive care. Appreciate orthopedic spine consultation and recommendations (5) Malignant neoplasm of lung: Plan: [facility]. 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 Current chest CT scan noted. Head CT scan negative for metastatic disease. Brain MRI scan also negative for metastatic disease. (6) Hypothyroidism: Plan: Stable. Continue current Synthroid replacement therapy (7) Vitamin D deficiency: Plan: Now on oral vitamin D replacement therapy (8) Acute encephalopathy: Plan: metabolic encephalopathy present on admission. Now resolved (9) Urinary tract infection: Plan: Uncomplicated. E. coli isolated. She is now on oral Cipro therapy, day 2 Plan Awaiting SNF placement Admission and Anticipated Discharge Date Admission Date: May 11, 2024 Subjective Alert and awake oriented. No new problems. Cipro day 2 for E. coli UTI. Orthostasis appears to have resolved with addition of midodrine. SNF placement is pending Review of Systems 2 Review of Systems: Constitutional-no fever or chills ENT-no blurred vision, no double vision, no epistaxis, no sore throat Respiratory-no cough, no wheezing, no shortness of breath Cardiac-no palpitations, no chest pain, no syncope GI-no nausea, vomiting, diarrhea, melena, hematochezia -no urinary retention, no urinary incontinence, no hematuria. She has noticed some frequency and dysuria Musculoskeletal-no joint pain, no muscle tenderness Skin-no bruising, no rashes, no pruritus Neuro-no isolated weakness, no paresthesia, no weakness Psych-no depression, no anxiety Physical Exam 2 Physical Exam: General-alert and oriented x3, no fever, no chills HEENT-head atraumatic and normocephalic, pupils equal and reactive to light, extraocular muscles intact Neck-no lymphadenopathy or thyromegaly, trachea midline Chest-clear to auscultation. No rales, wheezing or rhonchi Cardiac-regular rate and rhythm, normal S1 and S2 Abdomen-normal bowel sounds, no hepatosplenomegaly Extremities-no cyanosis, clubbing, or edema Neuro-cranial nerves II through XII intact, motor and sensory function within normal limits, strength symmetrical, no focal deficits Psych-normal affect, normal mood Results & Data Results & Data Vital Signs (Past 12 Hours) Vital Signs Temp Pulse Resp BP Pulse Ox O2 Del Method 05/24/24 08:00 Room Air 05/24/24 07:58 37 C 61 16 109/65 95 Room Air Laboratory Results 05/20/24 10:36 05/23/24 06:45 PG Care Time/CCT Total # of Minutes Spent Total Time Spent with Patient: Total time spent is greater than 50% in coordination of care (as documented) at patient's floor/unit and/or counseling patient: Coding Level of Care Code 36473 SUB INP/OBS CARE 2/35MIN Diagnoses Orthostatic hypotension I95.1 Syncope R55 Closed nondisplaced fracture of right clavicle, unspecified part of clavicle, initial encounter S42.001A Encounter type: initial encounter Clavicle location: unspecified part of clavicle Fracture alignment: nondisplaced Closed fracture of fifth lumbar vertebra, unspecified fracture morphology, initial encounter S32.059A Encounter type: initial encounter Fracture type: closed Fracture morphology: unspecified fracture morphology 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 lung C34.11 Laterality: right Lung location: upper lobe of lung Hypothyroidism E03.9 Vitamin D deficiency E55.9 Acute encephalopathy G93.40 Urinary tract infection N39.0 (3) Closed right clavicular fracture Encounter type: initial encounter Clavicle location: unspecified part of clavicle Fracture alignment: nondisplaced Qualified Code(s): S42.001A - Fracture of unspecified part of right clavicle, initial encounter for closed fracture (4) Fracture of fifth lumbar vertebra Encounter type: initial encounter Fracture type: closed Fracture morphology: unspecified fracture morphology Qualified Code(s): S32.059A - Unspecified fracture of fifth lumbar vertebra, initial encounter for closed fracture (5) Malignant neoplasm of lung Laterality: right Lung location: upper lobe of lung Qualified Code(s): C 34.11 - Malignant neoplasm of upper lobe, right bronchus or lung
--- NOTE | 2024-05-24 12:33 | Orthopedic Progress Note ---
Date of Service May 24, 2024 Assessment & Plan (1) Closed right clavicular fracture: Plan: No change on xrays of right clavicle fracture Continue Sling for comfort ROM as tolerated No heavy pushing, pulling or lifting with right arm Follow up in approximately 3-4 weeks for reassessment as an outpatient. Call [phone] with questions. Will sign off. Admission and Anticipated Discharge Date Admission Date: May 11, 2024 Subjective Patient resting in bed, sleeping. Did not awaken. Results & Data Vital Signs (Past 12 Hours) Vital Signs Temp Pulse Resp BP Pulse Ox O2 Del Method 05/24/24 08:00 Room Air 05/24/24 07:58 37 C 61 16 109/65 95 Room Air (1) Closed right clavicular fracture Encounter type: initial encounter Clavicle location: unspecified part of clavicle Fracture alignment: nondisplaced Qualified Code(s): S42.001A - Fracture of unspecified part of right clavicle, initial encounter for closed fracture
[2024-05-24] MEDS: FLUDROCORTISONE ACETATE 0.1 MG TAB PO SCH (14:58)
[2024-05-24] MEDS: MIDODRINE HCL 10 MG TAB PO SCH (17:41)
--- NOTE | 2024-05-25 11:41 | Hospitalist Progress Note ---
Date of Service May 25, 2024 Assessment & Plan (1) Orthostatic hypotension: Plan: Continues to be a problem. Midodrine has been uptitrated and Florinef started. Zoloft discontinued as a possible aggravating agent. Continue orthostatic measurements. Supportive care. (2) Syncope: Plan: Occurred prior to admission due to orthostasis. Now resolved. Serum cortisol level unremarkable. Cardiac echo report unremarkable. Brain MRI scan unremarkable for age. (3) Closed right clavicular fracture: Plan: Age related closed right clavicular fracture along with L4 and L5 vertebral fractures. Supportive care. Pain control measures. Orthopedic consultation appreciated. Nonoperative treatment at this time. Follow-up as an outpatient in 2 to 3 weeks. Continue PT and OT. (4) Fracture of fifth lumbar vertebra: Plan: Pain control measures. Supportive care. Appreciate orthopedic spine consultation and recommendations (5) Malignant neoplasm of lung: Plan: [facility]. 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 Current chest CT scan noted. Head CT scan negative for metastatic disease. Brain MRI scan also negative for metastatic disease. (6) Hypothyroidism: Plan: Stable. Continue current Synthroid replacement therapy (7) Vitamin D deficiency: Plan: Now on oral vitamin D replacement therapy (8) Acute encephalopathy: Plan: metabolic encephalopathy present on admission. Now resolved (9) Urinary tract infection: Plan: Uncomplicated. E. coli isolated. She is now on oral Cipro therapy, day 3 Plan Awaiting SNF placement Admission and Anticipated Discharge Date Admission Date: May 11, 2024 Subjective Alert and oriented. No distress. Nursing states that she complained of lightheadedness when she stood up today but they were unable to get a blood pressure measurement at the time. Midodrine has been uptitrated and she is now on Florinef. Currently day 3 of oral Cipro therapy. Placement is pending. Review of Systems 2 Review of Systems: Constitutional-no fever or chills ENT-no blurred vision, no double vision, no epistaxis, no sore throat Respiratory-no cough, no wheezing, no shortness of breath Cardiac-no palpitations, no chest pain, no syncope GI-no nausea, vomiting, diarrhea, melena, hematochezia -no urinary retention, no urinary incontinence, no hematuria. She has noticed some frequency and dysuria Musculoskeletal-no joint pain, no muscle tenderness Skin-no bruising, no rashes, no pruritus Neuro-no isolated weakness, no paresthesia, no weakness Psych-no depression, no anxiety Physical Exam 2 Physical Exam: General-alert and oriented x3, no fever, no chills HEENT-head atraumatic and normocephalic, pupils equal and reactive to light, extraocular muscles intact Neck-no lymphadenopathy or thyromegaly, trachea midline Chest-clear to auscultation. No rales, wheezing or rhonchi Cardiac-regular rate and rhythm, normal S1 and S2 Abdomen-normal bowel sounds, no hepatosplenomegaly Extremities-no cyanosis, clubbing, or edema Neuro-cranial nerves II through XII intact, motor and sensory function within normal limits, strength symmetrical, no focal deficits Psych-normal affect, normal mood Results & Data Results & Data Vital Signs (Past 12 Hours) Vital Signs Temp Pulse Resp BP Pulse Ox O2 Del Method 05/25/24 07:30 36.7 C 60 16 107/62 96 Room Air Laboratory Results 05/20/24 10:36 05/23/24 06:45 PG Care Time/CCT Total # of Minutes Spent Total Time Spent with Patient: Total time spent is greater than 50% in coordination of care (as documented) at patient's floor/unit and/or counseling patient: Coding Level of Care Code 87145 SUB INP/OBS CARE 2/35MIN Diagnoses Orthostatic hypotension I95.1 Syncope R55 Closed nondisplaced fracture of right clavicle, unspecified part of clavicle, initial encounter S42.001A Encounter type: initial encounter Clavicle location: unspecified part of clavicle Fracture alignment: nondisplaced Closed fracture of fifth lumbar vertebra, unspecified fracture morphology, initial encounter S32.059A Encounter type: initial encounter Fracture type: closed Fracture morphology: unspecified fracture morphology 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 lung C34.11 Laterality: right Lung location: upper lobe of lung Hypothyroidism E03.9 Vitamin D deficiency E55.9 Acute encephalopathy G93.40 Urinary tract infection N39.0 (3) Closed right clavicular fracture Encounter type: initial encounter Clavicle location: unspecified part of clavicle Fracture alignment: nondisplaced Qualified Code(s): S42.001A - Fracture of unspecified part of right clavicle, initial encounter for closed fracture (4) Fracture of fifth lumbar vertebra Encounter type: initial encounter Fracture type: closed Fracture morphology: unspecified fracture morphology Qualified Code(s): S32.059A - Unspecified fracture of fifth lumbar vertebra, initial encounter for closed fracture (5) Malignant neoplasm of lung Laterality: right Lung location: upper lobe of lung Qualified Code(s): C 34.11 - Malignant neoplasm of upper lobe, right bronchus or lung
[2024-05-26 06:47] LABS: Basophils # (auto) 0.06 K/uL (0.00-0.20); Eosinophils # (auto) 0.19 K/uL (0.00-0.50); Eosinophils % (auto) 3.2 %; Hematocrit (blood only) 35.8 % (37.0-47.0); Hemoglobin 12.3 g/dl (12.0-16.0); Immature Granulocytes # (auto) 0.03 K/uL (0.01-0.20); Immature Granulocytes % (auto) 0.5 %; Lymphocytes # (auto) 0.68 K/uL (1.20-3.40); Lymphocytes % (auto) 11.4 %; Mean Corpuscular Hemoglobin 33.6 pg (25.0-34.0); Mean Corpuscular Hgb Conc 34.4 g/dL (32.0-36.0); Mean Corpuscular Volume 97.8 fL (80.0-100.0); Mean Platelet Volume 8.6 fL (9.4-12.4); Monocytes # (auto) 0.66 K/uL (0.11-0.59); Monocytes % (auto) 11.1 %; Neutrophils # (auto) 4.34 K/uL (1.40-6.50); Neutrophils % (auto) 72.8 %; Platelet Count 300 K/uL (130-400); RDW Coefficient of Variation 15.8 % (11.5-14.5); RDW Standard Deviation 56.3 fL (36.4-46.3); Red Blood Count 3.66 M/uL (4.20-5.40); White Blood Count 5.96 K/ul (4.8-10.8)
[2024-05-26 07:11] LABS: BUN Creatinine Ratio 22.2 (10-20); Creatinine Clr Calc Pharmacy 35.5 ml/min; Est GFR (African American) 80.1 ml/min; Est GFR (Non-African American) 69.1 ml/min; Potassium 4.5 mmol/L (3.5-5.1)
[2024-05-26] MEDS: SODIUM CHLORIDE 0.9% 1,000 ML IV SCH (11:34)
--- NOTE | 2024-05-26 14:15 | Hospitalist Progress Note ---
Date of Service May 26, 2024 Assessment & Plan (1) Orthostatic hypotension: Plan: Continues to be a problem. Midodrine has been uptitrated and Florinef started. Zoloft discontinued as a possible aggravating agent. Continue orthostatic measurements. Supportive care. Still symptomatic , recommend IVF and compression stockings Reeval in AM (2) Syncope: Plan: Occurred prior to admission due to orthostasis. Now resolved. Serum cortisol level unremarkable. Cardiac echo report unremarkable. Brain MRI scan unremarkable for age. (3) Closed right clavicular fracture: Plan: Age related closed right clavicular fracture along with L4 and L5 vertebral fractures. Supportive care. Pain control measures. Orthopedic consultation appreciated. Nonoperative treatment at this time. Follow-up as an outpatient in 2 to 3 weeks. Continue PT and OT. (4) Fracture of fifth lumbar vertebra: Plan: Pain control measures. Supportive care. Appreciate orthopedic spine consultation and recommendations (5) Malignant neoplasm of lung: Plan: [facility]. 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 Current chest CT scan noted. Head CT scan negative for metastatic disease. Brain MRI scan also negative for metastatic disease. (6) Hypothyroidism: Plan: Stable. Continue current Synthroid replacement therapy (7) Vitamin D deficiency: Plan: Now on oral vitamin D replacement therapy (8) Acute encephalopathy: Plan: metabolic encephalopathy present on admission. Now resolved (9) Urinary tract infection: Plan: Uncomplicated. E. coli isolated. She is now on oral Cipro therapy, day 3 Plan Awaiting SNF placement Admission and Anticipated Discharge Date Admission Date: May 11, 2024 Subjective RN reports that patient was symptomatic when she stood up and could complete orthostatic vitals, patient denies dizziness when lying in bed, says no BM in 4 days Results & Data Results & Data Vital Signs (Past 12 Hours) Vital Signs Temp Pulse Resp BP Pulse Ox O2 Del Method 05/26/24 08:00 Room Air 05/26/24 07:25 36.9 C 85 16 109/69 95 Room Air PG Care Time/CCT Total # of Minutes Spent Total Time Spent with Patient: Total time spent is greater than 50% in coordination of care (as documented) at patient's floor/unit and/or counseling patient: Coding Level of Care Code 87548 SUB INP/OBS CARE 2/35MIN Diagnoses Orthostatic hypotension I95.1 Syncope R55 Closed nondisplaced fracture of right clavicle, unspecified part of clavicle, initial encounter S42.001A Encounter type: initial encounter Clavicle location: unspecified part of clavicle Fracture alignment: nondisplaced Closed fracture of fifth lumbar vertebra, unspecified fracture morphology, initial encounter S32.059A Encounter type: initial encounter Fracture type: closed Fracture morphology: unspecified fracture morphology 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 lung C34.11 Laterality: right Lung location: upper lobe of lung Hypothyroidism E03.9 Vitamin D deficiency E55.9 Acute encephalopathy G93.40 Urinary tract infection N39.0 (3) Closed right clavicular fracture Encounter type: initial encounter Clavicle location: unspecified part of clavicle Fracture alignment: nondisplaced Qualified Code(s): S42.001A - Fracture of unspecified part of right clavicle, initial encounter for closed fracture (4) Fracture of fifth lumbar vertebra Encounter type: initial encounter Fracture type: closed Fracture morphology: unspecified fracture morphology Qualified Code(s): S32.059A - Unspecified fracture of fifth lumbar vertebra, initial encounter for closed fracture (5) Malignant neoplasm of lung Laterality: right Lung location: upper lobe of lung Qualified Code(s): C34.11 - Malignant neoplasm of upper lobe, right bronchus or lung
[2024-05-26] MEDS: bisacodyL 5 MG TABEC PO ONE (14:37)
[2024-05-26] MEDS: SIMETHICONE 80 MG CHEW PO ONE (17:16)
[2024-05-27 07:57] LABS: BUN Creatinine Ratio 22.7 (10-20); Calcium 8.4 mg/dl (8.6-10.3); Est GFR (African American) 97.4 ml/min; Potassium 3.8 mmol/L (3.5-5.1)
[2024-05-27] MEDS: SODIUM CHLORIDE 0.9% 1,000 ML IV SCH (11:04)
--- NOTE | 2024-05-27 15:47 | Hospitalist Progress Note ---
Date of Service May 27, 2024 Assessment & Plan (1) Orthostatic hypotension: Plan: Still orthostatic but not symptomatic Added bina stockings and IVF (2) Syncope: Plan: Occurred prior to admission due to orthostasis. Now resolved. Serum cortisol level unremarkable. Cardiac echo report unremarkable. Brain MRI scan unremarkable for age. (3) Closed right clavicular fracture: Plan: Age related closed right clavicular fracture along with L4 and L5 vertebral fractures. Supportive care. Pain control measures. Orthopedic consultation appreciated. Nonoperative treatment at this time. Follow-up as an outpatient in 2 to 3 weeks. Continue PT and OT. (4) Fracture of fifth lumbar vertebra: Plan: Pain control measures. Supportive care. Appreciate orthopedic spine consultation and recommendations (5) Malignant neoplasm of lung: Plan: [facility]. 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 Current chest CT scan noted. Head CT scan negative for metastatic disease. Brain MRI scan also negative for metastatic disease. (6) Hypothyroidism: Plan: Stable. Continue current Synthroid replacement therapy (7) Vitamin D deficiency: Plan: Now on oral vitamin D replacement therapy (8) Acute encephalopathy: Plan: metabolic encephalopathy present on admission. Now resolved (9) Urinary tract infection: Plan: Uncomplicated. E. coli isolated. She is now on oral Cipro therapy, day 3 Plan Awaiting SNF placement Admission and Anticipated Discharge Date Admission Date: May 11, 2024 Subjective Still orthostatic but not symptomatic, had a BM yesterday, tolerating PO, discussed precautions she can take to avoid symptomatic orthostatic hypotension Physical Exam Physical Exam: Resting comfortably Lungs clear to auscultation Heart RRR PA Soft, NT, ND, BS+ Skin no rash AAO#3, Non focal Results & Data Results & Data Vital Signs (Past 12 Hours) Vital Signs Temp Pulse Resp BP BP Pulse Ox O2 Del Method 05/27/24 14:54 36.6 C 56 L 18 151/80 H 95 Room Air 05/27/24 08:00 Room Air 05/27/24 07:24 36.4 C L 61 18 104/62 96 Room Air PG Care Time/CCT Total # of Minutes Spent Total Time Spent with Patient: Total time spent is greater than 50% in coordination of care (as documented) at patient's floor/unit and/or counseling patient: Coding Level of Care Code 04202 SUB INP/OBS CARE 2/35MIN Diagnoses Orthostatic hypotension I95.1 Syncope R55 Closed nondisplaced fracture of right clavicle, unspecified part of clavicle, initial encounter S42.001A Encounter type: initial encounter Clavicle location: unspecified part of clavicle Fracture alignment: nondisplaced Closed fracture of fifth lumbar vertebra, unspecified fracture morphology, initial encounter S32.059A Encounter type: initial encounter Fracture type: closed Fracture morphology: unspecified fracture morphology 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 lung C34.11 Laterality: right Lung location: upper lobe of lung Hypothyroidism E03.9 Vitamin D deficiency E55.9 Acute encephalopathy G93.40 Urinary tract infection N39.0 (3) Closed right clavicular fracture Encounter type: initial encounter Clavicle location: unspecified part of clavicle Fracture alignment: nondisplaced Qualified Code(s): S42.001A - Fracture of unspecified part of right clavicle, initial encounter for closed fracture (4) Fracture of fifth lumbar vertebra Encounter type: initial encounter Fracture type: closed Fracture morphology: unspecified fracture morphology Qualified Code(s): S32.059A - Unspecified fracture of fifth lumbar vertebra, initial encounter for closed fracture (5) Malignant neoplasm of lung Laterality: right Lung location: upper lobe of lung Qualified Code(s): C34.11 - Malignant neoplasm of upper lobe, right bronchus or lung
--- NOTE | 2024-05-28 11:34 | Hospitalist Progress Note ---
Date of Service May 28, 2024 Assessment & Plan (1) Orthostatic hypotension: Plan: The cause of her fall most likely. She remains significantly orthostatic despite starting midodrine 10 Mg p.o. twice daily and Florinef 0.1 mg daily Systolic dropping to 70 systolic with standing and she is still symptomatic on 05/28 Random cortisol normal, TSH normal Continue midodrine, increase Florinef to 0.2 mg daily Check daily orthostatics Continue thigh-high JOY hose and encouraged plenty of p.o. fluids (2) Syncope: Plan: Occurred prior to admission due to orthostasis. Now resolved. Serum cortisol l evel unremarkable. Cardiac echo report unremarkable. Brain MRI scan unremarkable for age. (3) Closed right clavicular fracture: Plan: Age related closed right clavicular fracture along with L4 and L5 vertebral fractures. Supportive care. Pain control measures. Orthopedic consultation appreciated. Nonoperative treatment at this time. Follow-up as an outpatient in 3-4 more weeks Continue PT and OT. (4) Fracture of fifth lumbar vertebra: Plan: Pain control measures. Supportive care. Appreciate orthopedic spine consultation and recommendations TLSO brace (5) Malignant neoplasm of lung: Plan: [facility]. 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 Current chest CT scan noted. Head CT scan negative for metastatic disease. Brain MRI scan also negative for metastatic disease. (6) Hypothyroidism: Plan: Stable. TSH normal Continue current Synthroid replacement therapy (7) Vitamin D deficiency: Plan: Now on oral vitamin D replacement therapy (8) Acute encephalopathy: Plan: metabolic encephalopathy present on admission. Now resolved (9) Urinary tract infection: Plan: Uncomplicated. E. coli isolated. Completed 3 days of Cipro Plan DVT prophylaxis-heparin SQ, thigh-high JOY hose Disposition-continued stay due to ongoing symptomatic orthostasis, eventual placement at rehab Admission and Anticipated Discharge Date Admission Date: May 11, 2024 Subjective Patient still feeling lightheaded with sitting and standing and was positive on her orthostatic vital signs. No chest pain shortness of breath, no other complaints. Physical Exam Constitutional: + underweight; no acute distress Respiratory: normal respiratory effort, lungs clear to auscultation Cardiovascular: RRR, no murmur, no edema Gastrointestinal (Abdomen): normal bowel sounds, soft, nontender, no hepatosplenomegaly Psychiatric: A+Ox3, euthymic affect Results & Data Results & Data Vital Signs (Past 12 Hours) Vital Signs Pulse BP O2 Del Method 05/28/24 08:00 Room Air 05/28/24 03:29 69 113/66 PG Care Time/CCT Total # of Minutes Spent Total Time Spent with Patient: Total time spent is greater than 50% in coordination of care (as documented) at patient's floor/unit and/or counseling patient: Coding Level of Care Code 70970 SUB INP/OBS CARE 2/35MIN Diagnoses Orthostatic hypotension I95.1 Syncope R55 Closed nondisplaced fracture of right clavicle, unspecified part of clavicle, initial encounter S42.001A Clavicle location: unspecified part of clavicle Encounter type: initial encounter Fracture alignment: nondisplaced Closed fracture of fifth lumbar vertebra, unspecified fracture morphology, initial encounter S32.059A Encounter type: initial encounter Fracture morphology: unspecified fracture morphology Fracture type: closed 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 lung C34.11 Laterality: right Lung location: upper lobe of lung Hypothyroidism E03.9 Vitamin D deficiency E55.9 Acute encephalopathy G93.40 Urinary tract infection N39.0 (3) Closed right clavicular fracture Clavicle location: unspecified part of clavicle Encounter type: initial encounter Fracture alignment: nondisplaced Qualified Code(s): S42.001A - Fracture of unspecified part of right clavicle, initial encounter for closed fracture (4) Fracture of fifth lumbar vertebra Encounter type: initial encounter Fracture morphology: unspecified fracture morphology Fracture type: closed Qualified Code(s): S32.059A - Unspecified fracture of fifth lumbar vertebra, initial encounter for closed fracture (5) Malignant neoplasm of lung Laterality: right Lung location: upper lobe of lung Qualified Code(s): C34.11 - Malignant neoplasm of upper lobe, right bronchus or lung
[2024-05-28] MEDS: FLUDROCORTISONE ACETATE 0.1 MG TAB PO ONE (12:00)
[2024-05-28] MEDS: MELATONIN 3 MG TAB PO PRN (20:42)
[2024-05-28] MEDS: LORazepam 0.25 MG in SYRINGE 0.125 ML IV STA (22:51)
[2024-05-29] MEDS: OLANZAPINE 2.5 MG TAB PO ONE (02:15)
[2024-05-29] MEDS: LORazepam 0.25 MG in SYRINGE 0.125 ML IV STA (02:27)
[2024-05-29] MEDS: OLANZapine 10 MG/2.1 ML SDV IM STA (02:27)
[2024-05-29] MEDS: FLUDROCORTISONE ACETATE 0.1 MG TAB PO SCH (08:01)
[2024-05-29 08:12] LABS: Basophils # (auto) 0.05 K/uL (0.00-0.20); Basophils % (auto) 0.8 %; Eosinophils # (auto) 0.27 K/uL (0.00-0.50); Eosinophils % (auto) 4.3 %; Hematocrit (blood only) 35.4 % (37.0-47.0); Hemoglobin 12.1 g/dl (12.0-16.0); Immature Granulocytes # (auto) 0.02 K/uL (0.01-0.20); Immature Granulocytes % (auto) 0.3 %; Lymphocytes # (auto) 0.62 K/uL (1.20-3.40); Lymphocytes % (auto) 9.8 %; Mean Corpuscular Hemoglobin 33.1 pg (25.0-34.0); Mean Corpuscular Hgb Conc 34.2 g/dL (32.0-36.0); Mean Corpuscular Volume 96.7 fL (80.0-100.0); Monocytes # (auto) 0.64 K/uL (0.11-0.59); Monocytes % (auto) 10.1 %; Neutrophils # (auto) 4.73 K/uL (1.40-6.50); Neutrophils % (auto) 74.7 %; Platelet Count 247 K/uL (130-400); RDW Coefficient of Variation 15.7 % (11.5-14.5); RDW Standard Deviation 56.1 fL (36.4-46.3); Red Blood Count 3.66 M/uL (4.20-5.40); White Blood Count 6.33 K/ul (4.8-10.8)
[2024-05-29 08:37] LABS: BUN Creatinine Ratio 16.4 (10-20); Calcium 8.9 mg/dl (8.6-10.3); Creatinine Clr Calc Pharmacy 54.5 ml/min; Est GFR (African American) 103.4 ml/min; Est GFR (Non-African American) 89.2 ml/min; Magnesium 2.1 mg/dl (1.7-2.4); Potassium 3.4 mmol/L (3.5-5.1)
--- NOTE | 2024-05-29 16:10 | Hospitalist Progress Note ---
Date of Service May 29, 2024 Assessment & Plan (1) Orthostatic hypotension: Plan: The cause of her fall most likely. She remained significantly orthostatic despite starting midodrine 10 Mg p.o. twice daily and Florinef 0.1 mg daily Systolic dropping to 70 systolic with standing and she is still symptomatic on 05/28 Random cortisol normal, TSH normal Continue midodrine 10 Mg p.o. 3 times daily, increased Florinef to 0.2 mg daily and remains orthostatic but only dropping to 90 systolic and no longer symptomatic Unclear etiology of orthostasis-perhaps some sort of autonomic dysfunction. With good peripheral circulation-intact pulses throughout lower extremities Continue to check daily orthostatics Continue thigh-high JOY hose and encouraged plenty of p.o. fluids (2) Syncope: Plan: Occurred prior to admission due to orthostasis. Now resolved. Serum cortisol level unremarkable. Cardiac echo report unremarkable. Brain MRI scan unremarkable for age. (3) Acute encephalopathy: Plan: metabolic encephalopathy present on admission It appears on the evening of 05/28 she did have some restlessness and impulsiveness and was given IV Ativan and p.o. Zyprexa Would avoid antipsychotics given their propensity to cause orthostasis Would rather try supportive measures or redirection (4) Closed right clavicular fracture: Plan: Age related closed right clavicular fracture along with L4 and L5 vertebral fractures. Supportive care. Pain control measures. Orthopedic consultation appreciated. Nonoperative treatment at this time. Follow-up as an outpatient in 3-4 more weeks Continue PT and OT. Complains of pain in bilateral quadriceps with trying to stand-suspect significant deconditioning and muscle soreness-needs continued physical therapy (5) Fracture of fifth lumbar vertebra: Plan: Pain control measures. Supportive care. Appreciate orthopedic spine consultation and recommendations TLSO brace to be used when walking Follow-up with orthopedic spine surgery as an outpatient (6) Malignant neoplasm of lung: Plan: [facility]. 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 Current chest CT scan noted. Head CT scan negative for metastatic disease. Brain MRI scan also negative for metastatic disease. Patient needs to follow-up with oncology which is scheduled in the near future (7) Hypothyroidism: Plan: Stable. TSH normal Continue current Synthroid replacement therapy (8) Vitamin D deficiency: Plan: Now on oral vitamin D replacement therapy (9) Urinary tract infection: Plan: Uncomplicated. E. coli isolated. Completed 3 days of Cipro Plan DVT prophylaxis-heparin SQ, thigh-high JOY hose Disposition-medically stable for discharge, awaiting bed availability at rehab and insurance authorization Admission and Anticipated Discharge Date Admission Date: May 11, 2024 Subjective Patient complains of pain in her bilateral anterior thighs especially with trying to get up with physical therapy and she was only able to stand but not take any steps. The pain did subside after she laid back down on the bed shortly after working with physical therapy. Otherwise, despite positive orthostatic vital signs today, she no longer feels dizzy with standing She apparently was impulsive and trying to get out of bed frequently last night and was given IV Ativan and po Zyprexa overnight Physical Exam Constitutional: + underweight; no acute distress Respiratory: normal respiratory effort, lungs clear to auscultation Cardiovascular: RRR, no murmur, no edema Gastrointestinal (Abdomen): normal bowel sounds, soft, nontender, no hepatosplenomegaly Musculoskeletal: No tenderness to palpation over hip girdle or quadriceps Full range of motion of bilateral hips without pain 2+ femoral, popliteal, and dorsalis pedi s pulses Psychiatric: Orientation: alert, oriented to person, oriented to place and cooperative Results & Data Results & Data Vital Signs (Past 12 Hours) Vital Signs Temp Pulse Resp BP Pulse Ox O2 Del Method 05/29/24 15:32 36.6 C 56 L 16 118/71 97 Room Air 05/29/24 07:56 36.6 C 16 93 Room Air 05/29/24 07:30 Room Air Laboratory Results CBC, BMP, magnesium reviewed PG Care Time/CCT Total # of Minutes Spent Total Time Spent with Patient: Total time spent is greater than 50% in coordination of care (as documented) at patient's floor/unit and/or counseling patient: Coding Level of Care Code 55663 SUB INP/OBS CARE 2/35MIN Diagnoses Orthostatic hypotension I95.1 Syncope R55 Acute encephalopathy G93.40 Closed nondisplaced fracture of right clavicle, unspecified part of clavicle, initial encounter S42.001A Encounter type: initial encounter Clavicle location: unspecified part of clavicle Fracture alignment: nondisplaced Closed fracture of fifth lumbar vertebra, unspecified fracture morphology, initial encounter S32.053B Encounter type: initial encounter Fracture type: closed Fracture morphology: unspecified fracture morphology 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 lung C34.11 Laterality: right Lung location: upper lobe of lung Hypothyroidism E03.9 Vitamin D deficiency E55.9 Urinary tract infection N39.0 (4) Closed right clavicular fracture Encounter type: initial encounter Clavicle location: unspecified part of clavicle Fracture alignment: nondisplaced Qualified Code(s): S42.001A - Fracture of unspecified part of right clavicle, initial encounter for closed fracture (5) Fracture of fifth lumbar vertebra Encounter type: initial encounter Fracture type: closed Fracture morphology: unspecified fracture morphology Qualified Code(s): S32.059A - Unspecified fracture of fifth lumbar vertebra, initial encounter for closed fracture (6) Malignant neoplasm of lung Laterality: right Lung location: upper lobe of lung Qualified Code(s): C34.11 - Malignant neoplasm of upper lobe, right bronchus or lung
[2024-05-30 11:40] LABS: Appearance Urine Clear (Clear); Bilirubin Urine Negative (Negative); Blood Urine Negative (Negative); Color Urine Yellow; Glucose Urine UA Negative (Negative); Ketones Urine Negative (Negative); Leukocyte Esterase Urine Negative (Negative); Nitrite Urine Negative (Negative); Protein Urine Negative (Negative); Specific Gravity Urine 1.015 (1.000-1.030); Urobilinogen Urine Negative (Negative); pH Urine 6.5 (4.5-7.5)
--- NOTE | 2024-05-30 16:57 | Hospitalist Progress Note ---
Date of Service May 30, 2024 Assessment & Plan (1) Orthostatic hypotension: Plan: The cause of her fall most likely. She remained significantly orthostatic despite starting midodrine 10 Mg p.o. twice daily and Florinef 0.1 mg daily Systolic BP dropping to 70 systolic with standing and she was still symptomatic on 05/28-increased Florinef dosing Random cortisol normal, TSH normal On 05/30-remains orthostatic but only dropping to 80-90 systolic and no longer overtly symptomatic Unclear etiology of orthostasis-perhaps some sort of autonomic dysfunction. With good peripheral circulation-intact pulses throughout lower extremities Continue midodrine 10 Mg p.o. 3 times daily Continue increased Florinef at 0.2 mg daily Continue to check daily orthostatics Continue thigh-high JOY hose and encouraged plenty of p.o. fluids If remains orthostatic, would consider increasing Florinef further to 0.3 Mg in 1 week (2) Syncope: Plan: Occurred prior to admission due to orthostasis. Now resolved. Serum cortisol level unremarkable. Cardiac echo report unremarkable. Brain MRI scan unremarkable for age. (3) Acute encephalopathy: Plan: metabolic encephalopathy present on admission It appears on the evening of 05/28 she did have some restlessness and impulsiveness and was given IV Ativan and p.o. Zyprexa Would avoid antipsychotics given their propensity to cause orthostasis Would rather try supportive measures or redirection Patient has not had any further issues with this overnight (4) Closed right clavicular fracture: Plan: Age related closed right clavicular fracture along with L4 and L5 vertebral fractures. Supportive care. Pain control measures. Orthopedic consultation appreciated. Nonoperative treatment at this time. Follow-up as an outpatient in 3-4 more weeks Continue PT and OT. Complains of pain in bilateral quadriceps with trying to stand-suspect significant deconditioning and muscle soreness-needs continued physical therapy Encourage patient to take tramadol as needed for pain (5) Fracture of fifth lumbar vertebra: Plan: Pain control measures. Supportive care. Appreciate orthopedic spine consultation and recommendations TLSO brace to be used when walking Follow-up with orthopedic spine surgery as an outpatient (6) Malignant neoplasm of lung: Plan: [facility]. 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 Current chest CT scan noted. Head CT scan negative for metastatic disease. Brain MRI scan also negative for metastatic disease. Patient needs to follow-up with oncology which is scheduled in the near future (7) Hypothyroidism: Plan: Stable. TSH normal Continue current Synthroid replacement therapy (8) Vitamin D deficiency: Plan: Now on oral vitamin D replacement therapy (9) Urinary tract infection: Plan: Uncomplicated. E. coli isolated. Completed 3 days of Cipro With some suprapubic pain on 05/30-checked repeat urinalysis and it is normal Plan DVT prophylaxis-heparin SQ, thigh-high JOY hose Disposition-medically stable for discharge, awaiting insurance authorization for SNF at [facility] Admission and Anticipated Discharge Date Admission Date: May 11, 2024 Subjective Patient reports ongoing pain in her anterior thighs and some occasional suprapubic pain. She has not moved her bowels in 3 days She does not feel lightheaded or dizzy with standing but just reports feeling "weird." She is still positive on her orthostatic vital signs Denies chest pains or shortness of breath. She is eating and drinking She again does not have her thigh-high JOY hose on-nurse reports that she takes them off-I encouraged the patient to keep them on Physical Exam Constitutional: + underweight; no acute distress Respiratory: normal respiratory effort, lungs clear to auscultation Cardiovascular: RRR, no murmur, no edema Gastrointestinal (Abdomen): normal bowel sounds, soft, nontender, no hepatosplenomegaly Psychiatric: A+Ox3, euthymic affect Orientation: cooperative Results & Data Results & Data Vital Signs (Past 12 Hours) Vital Signs Temp Pulse Resp BP Pulse Ox O2 Del Method 05/30/24 15:22 37.1 C 54 L 16 130/75 95 Room Air 05/30/24 07:48 36.5 C 16 96 Room Air 05/30/24 07:20 Room Air Laboratory Results Urinalysis reviewed PG Care Time/CCT Total # of Minutes Spent Total Time Spent with Patient: Total time spent is greater than 50% in coordination of care (as documented) at patient's floor/unit and/or counseling patient: Coding Level of Care Code 96306 SUB INP/OBS CARE 2/35MIN Diagnoses Orthostatic hypotension I95.1 Syncope R55 Acute encephalopathy G93.40 Closed nondisplaced fracture of right clavicle, unspecified part of clavicle, initial encounter S42.001A Clavicle location: unspecified part of clavicle Encounter type: initial encounter Fracture alignment: nondisplaced Closed fracture of fifth lumbar vertebra, unspecified fracture morphology, initial encounter S32.059A Encounter type: initial encounter Fracture morphology: unspecified fracture morphology Fracture type: closed 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 lung C34.11 Laterality: right Lung location: upper lobe of lung Hypothyroidism E03.9 Vitamin D deficiency E55.9 Urinary tract infection N39.0 (4) Closed right clavicular fracture Clavicle location: unspecified part of clavicle Encounter type: initial encounter Fracture alignment: nondisplaced Qualified Code(s): S42.001A - Fracture of unspecified part of right clavicle, initial encounter for closed fracture (5) Fracture of fifth lumbar vertebra Encounter type: initial encounter Fracture morphology: unspecified fracture morphology Fracture type: closed Qualified Code(s): S32.059A - Unspecified fracture of fifth lumbar vertebra, initial encounter for closed fracture (6) Malignant neoplasm of lung Laterality: right Lung location: upper lobe of lung Qualified Code(s): C34.11 - Malignant neoplasm of upper lobe, right bronchus or lung
[2024-05-31] MEDS: FLUDROCORTISONE ACETATE 0.1 MG TAB PO ONE (11:21)
--- NOTE | 2024-05-31 16:29 | Hospitalist Progress Note ---
Date of Service May 31, 2024 Assessment & Plan (1) Orthostatic hypotension: Plan: The cause of her fall most likely. She remained significantly orthostatic despite starting midodrine 10 Mg p.o. twice daily and Florinef 0.1 mg daily Systolic BPs frequently dropping to 70 systolic with standing and she remained symptomatic Random cortisol normal, TSH normal Florinef dosing was increased to 0.2 mg and remains symptomatic with overt orthostasis with SBP's dropping 70 points Unclear etiology of orthostasis-perhaps some sort of autonomic dysfunction. With good peripheral circulation-intact pulses throughout lower extremities Continue midodrine 10 Mg p.o. 3 times daily Increase Florinef again to 0.3 mg daily Added abdominal binder and this has really improved her symptoms and orthostasis Continue to check daily orthostatics Continue thigh-high JOY hose and encouraged plenty of p.o. fluids (2) Syncope: Plan: Occurred prior to admission due to orthostasis. Now resolved. Serum cortisol level unremarkable. Cardiac echo report unremarkable. Brain MRI scan unremarkable for age. (3) Acute encephalopathy: Plan: metabolic encephalopathy present on admission It appears on the evening of 05/28 she did have some restlessness and impulsiveness and was given IV Ativan and p.o. Zyprexa Would avoid antipsychotics given their propensity to cause orthostasis Would rather try supportive measures or redirection Patient has not had any further issues with this overnight (4) Closed right clavicular fracture: Plan: Age related closed right clavicular fracture along with L4 and L5 vertebral fractures. Supportive care. Pain control measures. Orthopedic consultation appreciated. Nonoperative treatment at this time. Follow-up as an outpatient in 3-4 more weeks Continue PT and OT. Complains of pain in bilateral quadriceps with trying to stand-suspect significant deconditioning and muscle soreness-needs continued physical therapy Encourage patient to take tramadol as needed for pain Pain seems to be resolved on 05/31 and perhaps was related to hypotension with standing and poor circulation? (5) Fracture of fifth lumbar vertebra: Plan: Pain control measures. Supportive care. Appreciate orthopedic spine consultation and recommendations TLSO brace to be used when walking Follow-up with orthopedic spine surgery as an outpatient (6) Malignant neoplasm of lung: Plan: [facility]. 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 Current chest CT scan noted. Head CT scan negative for metastatic disease. Brain MRI scan also negative for metastatic disease. Patient needs to follow-up with oncology which is scheduled in the near future (7) Hypothyroidism: Plan: Stable. TSH normal Continue current Synthroid replacement therapy (8) Vitamin D deficiency: Plan: Now on oral vitamin D replacement therapy (9) Urinary tract infection: Plan: Uncomplicated. E. coli isolated. Completed 3 days of Cipro With some suprapubic pain on 05/30-checked repeat urinalysis and it is normal Plan DVT prophylaxis-heparin SQ, thigh-high JOY hose Disposition-medically stable for discharge, still awaiting insurance authorization for SNF at [facility] Admission and Anticipated Discharge Date Admission Date: May 11, 2024 Subjective Patient became disoriented with standing for orthostatics earlier this morning as per nursing. Her blood pressure had dropped to the 70s systolic and improved mentation and blood pressure after returning to the bed and lying down. An abdominal binder and her thigh-high JOY hose were replaced and fludrocortisone dose was increased. Orthostatics repeated later were much improved and patient was asymptomatic and did not have a decrease in mentation with getting up to go to the bathroom She denies any pain for me today Physical Exam Constitutional: + underweight; no acute distress Respiratory: normal respiratory effort, lungs clear to auscultation Cardiovascular: RRR, no murmur, no edema Gastrointestinal (Abdomen): normal bowel sounds, soft, nontender, no hepatosplenomegaly Psychiatric: A+Ox3, euthymic affect Orientation: cooperative Results & Data Results & Data Vital Signs (Past 12 Hours) Vital Signs Temp Pulse Resp BP BP Pulse Ox O2 Del Method 05/31/24 14:40 36.4 C L 56 L 16 156/80 H 98 Room Air 05/31/24 11:00 150/75 H 05/31/24 07:06 36.5 C 65 16 142/78 H 94 Room Air PG Care Time/CCT Total # of Minutes Spent Total Time Spent with Patient: Total time spent is greater than 50% in coordination of care (as documented) at patient's floor/unit and/or counseling patient: Coding Level of Care Code 38445 SUB INP/OBS CARE 2/35MIN Diagnoses Orthostatic hypotension I95.1 Syncope R55 Acute encephalopathy G93.40 Closed nondisplaced fracture of right clavicle, unspecified part of clavicle, initial encounter S42.001A Encounter type: initial encounter Clavicle location: unspecified part of clavicle Fracture alignment: nondisplaced Closed fracture of fifth lumbar vertebra, unspecified fracture morphology, initial encounter S32.059A Encounter type: initial encounter Fracture type: closed Fracture morphology: unspecified fracture morphology 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 lung C34.11 Laterality: right Lung location: upper lobe of lung Hypothyroidism E03.9 Vitamin D deficiency E55.9 Urinary tract infection N39.0 (4) Closed right clavicular fracture Encounter type: initial encounter Clavicle location: unspecified part of clavicle Fracture alignment: nondisplaced Qualified Code(s): S42.001A - Fracture of unspecified part of right clavicle, initial encounter for closed fracture (5) Fracture of fifth lumbar vertebra Encounter type: initial encounter Fracture type: closed Fracture morphology: unspecified fracture morphology Qualified Code(s): S32.059A - Unspecified fracture of fifth lumbar vertebra, initial encounter for closed fracture (6) Malignant neoplasm of lung Laterality: right Lung location: upper lobe of lung Qualified Code(s): C 34.11 - Malignant neoplasm of upper lobe, right bronchus or lung
[2024-06-01 07:34] LABS: BUN Creatinine Ratio 28.3 (10-20); Calcium 8.8 mg/dl (8.6-10.3); Creatinine Clr Calc Pharmacy 47.9 ml/min; Est GFR (African American) 100.5 ml/min; Est GFR (Non-African American) 86.7 ml/min; Potassium 3.6 mmol/L (3.5-5.1)
[2024-06-01] MEDS: FLUDROCORTISONE ACETATE 0.1 MG TAB PO SCH (09:21)
--- NOTE | 2024-06-01 16:51 | Hospitalist Progress Note ---
Date of Service June 01, 2024 Assessment & Plan (1) Orthostatic hypotension: Plan: The cause of her fall most likely. She remained significantly orthostatic despite starting midodrine 10 Mg p.o. twice daily and Florinef 0.1 mg daily Systolic BPs frequently dropping to 70 systolic with standing and she remained symptomatic for quite some time Random cortisol normal, TSH normal Florinef dosing has now been increased to 0.3 mg and continues on midodrine 10 Mg p.o. 3 times daily Abdominal binder and thigh-high JOY hose added Unclear etiology of orthostasis-perhaps some sort of autonomic dysfunction. With good peripheral circulation-intact pulses throughout lower extremities Finally much improved-on most recent orthostatic vital signs, only dropped 20 points to a systolic blood pressure of 100 and was asymptomatic Continue midodrine 10 Mg p.o. 3 times daily Continue Florinef 0.3 mg daily Continue abdominal binder and thigh-high JOY hose Continue to check daily orthostatics Continue to encourage her to drink plenty of p.o. fluids and encourage salt in the diet (2) Syncope: Plan: Occurred prior to admission due to orthostasis. Now resolved. Serum cortisol level unremarkable. Cardiac echo report unremarkable. Brain MRI scan unremarkable for age. (3) Acute encephalopathy: Plan: metabolic encephalopathy present on admission It appears on the evening of 12 she did have some restlessness and impulsiveness and was given IV Ativan and p.o. Zyprexa Would avoid antipsychotics given their propensity to cause orthostasis Would rather try supportive measures or redirection Patient has not had any further issues with this (4) Closed right clavicular fracture: Plan: Age related closed right clavicular fracture along with L4 and L5 vertebral fractures. Supportive care. Pain control measures. Orthopedic consultation appreciated. Nonoperative treatment at this time. Follow-up as an outpatient in 3-4 more weeks Continue PT and OT. Complains of pain in bilateral quadriceps with trying to stand-suspect significant deconditioning and muscle soreness-needs continued physical therapy Encourage patient to take tramadol as needed for pain which has helped (5) Fracture of fifth lumbar vertebra: Plan: Pain control measures. Supportive care. Appreciate orthopedic spine consultation and recommendations TLSO brace to be used when walking Follow-up with orthopedic spine surgery as an outpatient (6) Malignant neoplasm of lung: Plan: [facility]. 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 Current chest CT scan noted. Head CT scan negative for metastatic disease. Brain MRI scan also negative for metastatic disease. Patient needs to follow-up with oncology which is scheduled in the near future (7) Hypothyroidism: Plan: Stable. TSH normal Continue current Synthroid replacement therapy (8) Vitamin D deficiency: Plan: Now on oral vitamin D replacement therapy (9) Urinary tract infection: Plan: Uncomplicated. E. coli isolated. Completed 3 days of Cipro With some suprapubic pain on 05/30-checked repeat urinalysis and it is normal Plan DVT prophylaxis-heparin SQ, thigh-high JOY hose Disposition-medically stable for discharge, still awaiting insurance authorization for SNF at [facility] Admission and Anticipated Discharge Date Admission Date: May 11, 2024 Subjective Patient denies lightheadedness. She did have some confusion with standing overnight but was likely orthostatic at that time. With abdominal binder and thigh-high JOY hose on today, she is still orthostatic but does not drop nearly as low and is asymptomatic. She moved her bowels yesterday. She denies any pain in the legs today Still awaiting placement Physical Exam Constitutional: + underweight; no acute distress Respiratory: normal respiratory effort, lungs clear to auscultation Cardiovascular: RRR, no murmur, no edema Gastrointestinal (Abdomen): normal bowel sounds, soft, nontender, no hepatosplenomegaly Psychiatric: Orientation: alert, oriented to person, oriented to place and cooperative Results & Data Results & Data Vital Signs (Past 12 Hours) Vital Signs Temp Pulse Pulse Resp BP Pulse Ox O2 Del Method 06/01/24 14:29 36.8 C 61 16 128/60 96 Room Air 06/01/24 11:39 36.3 C L 62 19 160/80 H 95 Room Air 06/01/24 08:09 36.6 C 81 16 120/76 95 Room Air Laboratory Results BMP reviewed PG Care Time/CCT Total # of Minutes Spent Total Time Spent with Patient: Total time spent is greater than 50% in coordination of care (as documented) at patient's floor/unit and/or counseling patient: Coding Level of Care Code 70169 SUB INP/OBS CARE 1/25MIN Diagnoses Orthostatic hypotension I95.1 Syncope R55 Acute encephalopathy G93.40 Closed nondisplaced fracture of right clavicle, unspecified part of clavicle, initial encounter S42.001A Encounter type: initial encounter Clavicle location: unspecified part of clavicle Fracture alignment: nondisplaced Closed fracture of fifth lumbar vertebra, unspecified fracture morphology, initial encounter S32.059A Encounter type: initial encounter Fracture type: closed Fracture morphology: unspecified fracture morphology 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 lung C34.11 Laterality: right Lung location: upper lobe of lung Hypothyroidism E03.9 Vitamin D deficiency E55.9 Urinary tract infection N39.0 (4) Closed right clavicular fracture Encounter type: initial encounter Clavicle location: unspecified part of clavicle Fracture alignment: nondisplaced Qualified Code(s): S42.001A - Fracture of unspecified part of right clavicle, initial encounter for closed fracture (5) Fracture of fifth lumbar vertebra Encounter type: initial encounter Fracture type: closed Fracture morphology: unspecified fracture morphology Qualified Code(s): S32.059A - Unspecified fracture of fifth lumbar vertebra, initial encounter for closed fracture (6) Malignant neoplasm of lung Laterality: right Lung location: upper lobe of lung Qualified Code(s): C34.11 - Malignant neoplasm of upper lobe, right bronchus or lung
[2024-06-01] MEDS: DOCUSATE SODIUM 100 MG CAP PO SCH (20:50)
[2024-06-01] MEDS: SENNA 8.6 MG TAB PO SCH (20:51)
--- NOTE | 2024-06-02 09:27 | Discharge Summary ---
Discharge Summary Date of Service June 02, 2024 Principal Dx & Hospital Course #1 = Principal Diagnosis (1) Orthostatic hypotension: The cause of her fall most likely. She remained significantly orthostatic despite starting midodrine 10 Mg p.o. twice daily and Florinef 0.1 mg daily Sertraline was also stopped in case it was contributing Systolic BPs frequently dropping 70 points to 70 SBP with standing and she remained symptomatic for quite some time Random cortisol normal, TSH normal Florinef dosing has now been increased to 0.3 mg and started on midodrine 10 Mg p.o. 3 times daily Abdominal binder and thigh-high JOY hose added, but WAIST HIG compression tights would be ideal-asked daughter to buy some for her and recommend wearing both of these anytime she is out of bed Unclear etiology of orthostasis-perhaps some sort of autonomic dysfunction. With good peripheral circulation-intact pulses throughout lower extremities, no diabetes-related neuropathy Vitamin B1 low-replaced; Vitamin B12 normal Finally much improved-on most recent orthostatic vital signs, only dropped 20 points to a systolic blood pressure of 100 and was asymptomatic with TEDs and abdominal binder in place Continue midodrine 10 Mg p.o. 3 times daily Continue Florinef 0.3 mg daily Continue abdominal binder and waist high compression tights Continue to encourage her to drink plenty of p.o. fluids and liberalize salt in the diet Stable for discharge to rehab (2) Syncope: Occurred prior to admission due to orthostasis. Workup for orthostasis as above Cardiac echo report unremarkable. Brain MRI scan unremarkable for age (3) Acute encephalopathy: metabolic encephalopathy present on admission-ikely from hypotension, poor perfusion to brain with standing. Also tramadol use for pain contributing-much improved It appears on the evening of 05/28 she did have some restlessness and impulsiveness and was given IV Ativan and p.o. Zyprexa Would avoid antipsychotics given their propensity to cause orthostasis Would rather try supportive measures or redirection Patient has not had any further issues with this Avoid further tramadol use (4) Closed right clavicular fracture: Age related closed right clavicular fracture along with L4 and L5 vertebral fractures. Supportive care. Pain control measures. Orthopedic consultation appreciated. Nonoperative treatment at this time. Follow-up as an outpatient in 3-4 more weeks Continue PT and OT. F/u with Ortho SPine in 1-2 weeks Complains of pain in bilateral quadriceps with trying to stand-suspect significant deconditioning and muscle soreness-needs continued physical therapy Tylenol for pain and will avoid tramadol due to causing confusion (5) Fracture of fifth lumbar vertebra: Pain control measures. Supportive care. Appreciate orthopedic spine consultation and recommendations TLSO brace to be used when walking Follow-up with orthopedic spine surgery as an outpatient Tylenol for pain (6) Malignant neoplasm of lung: [facility]. 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 Current chest CT scan noted. Head CT scan negative for metastatic disease. Brain MRI scan also negative for metastatic disease. Patient needs to follow-up with oncology which is scheduled in the near future (7) Hypothyroidism: Stable. TSH normal Continue current Synthroid replacement therapy (8) Vitamin D deficiency: STarted on oral vitamin D replacement therapy Vitamin B1 deficiency-Vit B1 level low normal at 8, started thiamine 100mg po bid (9) Urinary tract infection: Uncomplicated. E. coli isolated. Completed 3 days of Cipro With some suprapubic pain on 05/30-checked repeat urinalysis and it is normal Plan DVT prophylaxis-heparin SQ, thigh-high JOY hose Disposition-medically stable for discharge to SNF at [facility] Discussed her care with daughter, Jennifer, on the phone on day of discharge Notes For Next Care Provider Must use waist high compression stockings and abdominal binder when out of bed Use TLSO brace when out of bed Follow up with Orthopedic SPine SUrgeon in 1-2 weeks Follow up within Ortho for clavicle fracture in 1 month Follow up with Oncology for lung cancer Medication Changes From Visit see list below Admission HPI Per Admitting Provider The patient is a 79-year-old female with a past medical history including lung cancer presently undergoing evaluation by oncology, malignant cachexia, generalized weakness, status post bronchoscopy with biopsy, GERD, tobacco use history, hypothyroidism, hypercholesterolemia, depression with anxiety and vitamin D deficiency. Patient presented to the emergency department with right shoulder pain, low back pain, and confusion with memory loss since a fall that was initially took place on 05/09. Workup in the emergency department included a chest x-ray showing a distal right clavicular fracture, CT scan of abdomen pelvis showing acute pedicle fractures at the L5 level, CT scan head was negative, and CT scan of the chest showed centrilobular emphysema, right upper lobe scarring, and right chest wall contusion. CT scan of cervical spine showed degeneration. The patient could not recount the fall, other than to say that she was pulling a box with meals from mom and from outside, fell, and does not remember the rest of the events. Her daughter saw her on that day, when she was eating, and stayed with her through the evening of 05/11, until she was brought to the ED for assessment Discharge Exam Constitutional + underweight; no acute distress Respiratory normal respiratory effort, lungs clear to auscultation Cardiovascular RRR, no murmur, no edema Gastrointestinal (Abdomen) normal bowel sounds, soft, nontender, no hepatosplenomegaly Psychiatric Orientation: alert, oriented to person, oriented to place and cooperative Discharge Plan Discharge Items Patient Disposition: Transfer Long-Term Fac Reason For Visit: S/P FALL, CLAVICLE AND L5 FRACTURES, CONFUSION Discharge Diagnosis: Orthostatic hypotension Right clavicle fracture Lumbar compression fractures UTI Condition on Discharge: Fair Activity: As commented below Lifting: No more than 5 pounds Bathing: No limitations Exercise/Sports: Gradually increase as tolerated Driving/Machine Use: No driving Weightbearing: Full weightbearing Non-emergency contact: Primary Care Provider Call non-emergency contact if: you have any medication questions, your symptoms worsen and your pain is not controlled Follow-up/Referrals: Radha Ruvalcaba MD [Primary Care Provider] - Raghavendra Schroeder MD [Physician] - 06/21/24 1:30 pm Carlton Murrell DO [Surgeon] - (Follow up in 1-2 weeks for lumbar spine compression fracture ) Diet: Regular Diet Comment: Liberalize salt in diet,drink plenty of fluids Addtl Attending Provider Instructions: You were admitted for a fall which caused you to break your right collar bone and L5 lumbar vertebral bone. There is no surgery needed for these broken bones, but you will need follow up with the Orthopedic Surgeon for repeat xrays in the future of the collar bone. Please wear the TLSO brace when you are out of bed and walking and see the spine surgeon in 1-2 weeks. Your fall was caused by severely low blood pressure with standing. No cause could be found for this, but it could be from damage to the nerves that tell your blood vessels in the legs to squeeze the blood flow back to your heart. The treatment for this involves medications called midodrine and fludrocortisone, as well as wearing waist high compression tights and an abdominal binder any time you will be out of bed. Addtl Production Superintendent Provider Instructions: Orthopedic Instructions: - Sling left upper extremity when out of bed and as needed for comfort. - May do gentle range of motion exercises of your hand, wrist, forearm and elbow as tolerated. - May do range of motion of the left shoulder as tolerated. No heavy pushing, pulling or lifting. - Ice to left shoulder as needed for pain and swelling. - May be comfortable with head of bed elevated or propped up on pillows when lying in bed. - Follow-up with Dr. Schroeder in 2 to 3 weeks. Call [phone] to confirm or reschedule your appointment. Pending Studies at Discharge: No Stand-Alone Forms: My [facility] Skilled Items Patient informed of condition?: Yes DNR: Yes Discharge Level of Care: Skilled Communicable Disease: No Discharge Prognosis: Improving Lines: None Urinary Catheter: No Medications and DC Order Prescriptions: New midodrine 10 mg Tablet 10 mg PO TID@0800,1200,1700 Qty: 90 0RF celecoxib [Celebrex] 200 mg Capsule 200 mg PO QAM Qty: 30 0RF sennosides [Senokot] 8.6 mg Tablet 8.6 mg PO HS Qty: 30 0RF acetaminophen [Tylenol Extra Strength] 500 mg Tablet 1,000 mg PO TID Qty: 180 0RF docusate sodium 100 mg Capsule 100 mg PO BID Qty: 60 0RF fludrocortisone 0.1 mg Tablet 0.3 mg PO QAM Qty: 90 0RF lidocaine 5 % Adhesive Patch,Medicated 3 patch transdermal QAM Qty: 30 0RF thiamine HCl (vitamin B1) 100 mg Tablet 100 mg PO BID Qty: 60 0RF cholecalciferol (vitamin D3) 25 mcg (1,000 unit) Capsule 50 mcg PO QAM Qty: 30 0RF Cerovite Senior 0.4 mg-300 mcg- 250 mcg Tablet 1 tab PO QAM Qty: 30 0RF Continued latanoprost 0.005 % drops 1 drops OP QPM dorzolamide-timolol 22.3-6.8 mg/mL drops 1 drp OPR BID levothyroxine 88 mcg tablet 88 mcg PO DAILY Rx Instructions: Take 1 tablet by mouth once daily pantoprazole 40 mg tablet,delayed release (DR/EC) 40 mg PO DAILY Rx Instructions: Take 1 tablet by mouth once daily Discontinued sertraline 100 mg tablet 100 mg PO DAILY Rx Instructions: TAKE 1 TABLET BY MOUTH ONCE DAILY FOR ANXIETY Discharge Orders: Discharge Order (Routine); Ordered 06/02/24 Ordered By: Janeth Henning Admission Data Admit Date/Time: 05/11/24 20:44 Attending Provider: Janeth Henning Admit Provider: Edenilson Peoples Primary Care Provider: Radha Ruvalcaba Other Providers: Edenilson Peoples; Raghavendra Schroeder; Carlton Murrell; [facility]; [facility]; [facility], [facility] Stay Data Consultations 05/11/24 19:01 ED Decision to Admit Stat 05/12/24 06:10 Consult Orthopedic Surgery Routine 05/12/24 14:51 Consult Orthopedic Spine Surgery Routine Diagnostic Imagining Performed 05/11/24 17:10 CT abd pelvis IV con only Stat CT cervical spine wo con Stat CT chest diagnostic w con Stat CT head/brain wo con Stat 05/14/24 14:36 CT lumbar spine wo con Routine 05/22/24 00:01 MR brain wo/w con Routine 05/22/24 08:59 CT angio chest PE protocol Urgent Pending Results Patient Have Any Pending Studies at Discharge: No Discharge Instructions Given to Patient (Per Discharging Provider) You were admitted for a fall which caused you to break your right collar bone and L5 lumbar vertebral bone. There is no surgery needed for these broken bones, but you will need follow up with the Orthopedic Surgeon for repeat xrays in the future of the collar bone. Please wear the TLSO brace when you are out of bed and walking and see the spine surgeon in 1-2 weeks. Your fall was caused by severely low blood pressure with standing. No cause could be found for this, but it could be from damage to the nerves that tell your blood vessels in the legs to squeeze the blood flow back to your heart. The treatment for this involves medications called midodrine and fludrocortisone, as well as wearing waist high compression tights and an abdominal binder any time you will be out of bed. Total Time Total Time Spent Total Time Spent (In Minutes): 45 min Total Time Includes: Examination of the Patient, Discharge Planning and Medication Reconciliation Coding Level of Care Code 50051 INP/OBS DISCH >30 MIN Diagnoses Orthostatic hypotension I95.1 Syncope R55 Acute encephalopathy G93.40 Closed nondisplaced fracture of right clavicle, unspecified part of clavicle, initial encounter S42.001A Encounter type: initial encounter Clavicle location: unspecified part of clavicle Fracture alignment: nondisplaced Closed fracture of fifth lumbar vertebra, unspecified fracture morphology, initial encounter S32.059A Encounter type: initial encounter Fracture type: closed Fracture morphology: unspecified fracture morphology 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 lung C34.11 Laterality: right Lung location: upper lobe of lung Hypothyroidism E03.9 Vitamin D deficiency E55.9 Urinary tract infection N39.0
[2024-06-02 09:33] VITALS: BP 111/66; RESP 16; TEMP 98.1; O2SAT 97
[2024-06-02 10:48] VITALS: PULSE 62
== END 2024-06-02 11:17 | DRG 542 ==
LOC: ED 16:45 → SUATTDRO 20:44 → EDINP 20:44 → 2N 05-12 01:50 → 3N 05-15 21:31